=== PATIENT | male | born 1940 | race Caucasian/White ===

== ENCOUNTER 2023-12-23 09:59 | Day surgery (SDC) | payer MEDICARE, OTHER ==
[2023-12-23] VITALS (12 sets, daily range): BP systolic 109–137; BP diastolic 59–76; PULSE 59–88; RESP 10–19; TEMP 98.7; O2SAT 94–98
[~2023-12-23] VITALS: Ht 170.2 cm; Wt 63.3 kg
[~2023-12-23 09:59] MED LIST: ASPI81TA52 PO; ATOR20TA PO
[2023-12-23] MEDS ORDERED: nitroGLYCERIN 0.4mg SUBLingual tab SL PRN ×2 (10:20→13:05)
[2023-12-23] MEDS ORDERED: LORazepam 0.5 MG tablet PO PRN (10:20)
[2023-12-23] MEDS ORDERED: ERGO400C PO (10:25)
[2023-12-23] MEDS ORDERED: UMEC1DIS INH (10:25)
[2023-12-23] MEDS ORDERED: METF-1203 PO (10:25)
[2023-12-23] MEDS ORDERED: ZINC220T3 PO (10:25)
[2023-12-23] MEDS ORDERED: MULT-1085 PO (10:25)
[2023-12-23] MEDS ORDERED: VITC500T PO (10:25)
[2023-12-23 10:53] LABS: BASOPHILS % (AUTO) 0.4 % (0-1); EOSINOPHILS # (AUTO) 0.1 X10'3 (0-0.9); EOSINOPHILS % (AUTO) 0.9 % (0-6); HEMATOCRIT 41.6 % (42.0-52.0); HEMOGLOBIN 13.8 g/dl (14.0-17.9); LYMPHOCYTES # (AUTO) 1.8 X10'3 (1.1-4.8); MEAN CORPUSCULAR HEMOGLOBIN 30.1 PG (27.0-31.0); MEAN CORPUSCULAR HGB CONC 33.1 g/dL (33.0-36.5); MEAN PLATELET VOLUME 7.6 FL (7.4-10.4); MONOCYTES # (AUTO) 1.4 X10'3 (0-0.9); MONOCYTES % (AUTO) 11.3 % (2-12); NEUTROPHILS # (AUTO) 8.9 X10'3 (1.8-7.7); NEUTROPHILS % (AUTO) 72.4 % (42-75); PLATELET COUNT 263 X10'3 (140-440); RED BLOOD COUNT 4.58 X10'6 (4.70-6.10); RED CELL DISTRIBUTION WIDTH 15.9 % (11.5-14.5); WHITE BLOOD COUNT 12.3 X10'3 (4.5-11.0)
[2023-12-23 10:57] LABS: APTT 26 SECONDS (22-32); PROTHROMBIN TIME 10.8 SECONDS (9.0-12.0)
[2023-12-23 11:11] LABS: ALBUMIN 3.5 G/DL (3.4-5.0); ANION GAP 9 (8-16); BLOOD UREA NITROGEN 23 MG/DL (7-18); BUN/CREATININE RATIO 21.7 (10.0-20.0); CALCIUM 8.7 MG/DL (8.5-10.1); CHLORIDE 104 MMOL/L (99-107); CREATININE 1.06 MG/DL (0.60-1.10); GLUCOSE 118 MG/DL (70-104); HEMOGLOBIN A1C 6.1 % (4.5-6.2); POTASSIUM 4.1 MMOL/L (3.5-5.1); PRO BRAIN NATRIURETIC PEPTIDE 121 PG/ML (0-450); SODIUM 140 MMOL/L (135-145); eCRCL 49 ML/MIN; eGFR 67 ML/MIN
[2023-12-23] MEDS ORDERED: LIDOcaine 1% 30ml preserv. free vial ONE (11:33)
[2023-12-23] MEDS ORDERED: iohexol 350MG/ML 100ml bottle IV ONE (11:33)
[2023-12-23] MEDS ORDERED: iohexol 350 MG/ML 50ML vial IV ONE (11:33)
[2023-12-23] MEDS ORDERED: fentaNYL/PF 50MCG/1 ML 2ML syringe ONE (11:33)
[2023-12-23] MEDS ORDERED: midazolam 1 mg/ML 2ml injection ONE (11:33)
[2023-12-23] MEDS: normal saline 1,000 ML IV SCH (11:43)
[2023-12-23] MEDS: diphenhydrAMINE 25mg capsule PO PRN (11:43)
[2023-12-23] MEDS ORDERED: HYDROcodone/acetaminophen 5mg/325mg tablet PO PRN (13:05)
[2023-12-23] MEDS ORDERED: OXAZEpam 15mg capsule PO PRN (13:05)
[2023-12-23] MEDS ORDERED: HYDROcodone/acetaminophen 10/325mg tab PO PRN (13:05)
[2023-12-23] MEDS ORDERED: ondansetron/PF 4mg/2ml inj IV PRN (13:05)
[2023-12-23] MEDS ORDERED: proCHLORperazine 10 MG/2 ml inj IV PRN (13:05)
== END 2023-12-23 18:55 | disposition home or self-care (01) ==
LOC: SSTAY O 09:59
PROVIDERS: ATTEND Internal Medicine Cardiovascular Disease
DX: I25.119 Atherosclerotic heart disease of native coronary artery with unspecified angina pectoris (principal); I45.2 Bifascicular block; E11.9 Type 2 diabetes mellitus without complications; J44.9 Chronic obstructive pulmonary disease, unspecified
CPT/HCPCS: 36415; 71046; 80048; 83036; 83880; 84484; 85025; 85610; 85730; 93005; 93458; 99152; A6258; C1760; J1644; J2001; J2250; J3010; J7030; Q0163; Q9967; Z7610; C1769; J3490

== ENCOUNTER 2024-01-06 05:57 | Inpatient (IN) | payer MEDICARE, OTHER ==
[2024-01-04 16:42] LABS: BASOPHILS # (AUTO) 0.1 X10'3 (0-0.2); BASOPHILS % (AUTO) 0.4 % (0-1); EOSINOPHILS # (AUTO) 0.2 X10'3 (0-0.9); EOSINOPHILS % (AUTO) 1.9 % (0-6); LYMPHOCYTES % (AUTO) 15.5 % (21-51); MEAN CORPUSCULAR HGB CONC 33.5 g/dL (33.0-36.5); MEAN CORPUSCULAR VOLUME 92.4 FL (78-98); MEAN PLATELET VOLUME 7.3 FL (7.4-10.4); MONOCYTES # (AUTO) 1.2 X10'3 (0-0.9); MONOCYTES % (AUTO) 9.8 % (2-12); NEUTROPHILS # (AUTO) 9.2 X10'3 (1.8-7.7); NEUTROPHILS % (AUTO) 72.4 % (42-75); PRE OP HEMATOCRIT 44.4 % (42.0-52.0); PRE OP HEMOGLOBIN 14.9 g/dL (14.0-17.9); PRE OP PLATELET COUNT 314 X10'3 (140-440); PRE OP WHITE BLOOD COUNT 12.6 10'3 (4.8-10.8); RED BLOOD COUNT 4.81 X10'6 (4.70-6.10); RED CELL DISTRIBUTION WIDTH 16.1 % (11.5-14.5)
[2024-01-04 16:50] LABS: BILIRUBIN,URINE NEGATIVE (Neg); CLARITY,URINE CLEAR (Clear); COLOR,URINE YELLOW (Yellow); GLUCOSE, URINE NEGATIVE (Neg); KETONES,URINE NEGATIVE (Neg); LEUKOCYTE ESTERASE ,URINE NEGATIVE (Neg); NITRITES, URINE NEGATIVE (Neg); OCCULT BLOOD,URINE NEGATIVE (Neg); PH,URINE 5.5 (4.8-8.0); PROTEIN,URINE NEGATIVE (Neg); UROBILINOGEN,URINE 0.2 E.U/dL (0.2-1.0)
[2024-01-04 16:56] LABS: UA COLLECTION TYPE CLN CATCH MIDSTREAM
[2024-01-04 16:58] LABS: ALBUMIN 3.8 G/DL (3.4-5.0); ALBUMIN/GLOBULIN RATIO 1.1 (1.1-1.5); ALKALINE PHOSPHATASE 80 IU/L (46-116); BLOOD UREA NITROGEN 23 MG/DL (7-18); CALCIUM 9.1 MG/DL (8.5-10.1); CHLORIDE 103 MMOL/L (99-107); CREATININE 1.15 MG/DL (0.60-1.10); PRE OP ALT 21 U/L (30-65); PRE OP ANION GAP 8 (8-16); PRE OP AST 16 U/L (10-37); PRE OP BILIRUB, TOTAL 0.4 MG/DL (0.0-1.0); PRE OP GLUCOSE 100 MG/DL (70-104); PRE OP POTASSIUM 4.3 MMOL/L (3.4-5.1); PRE OP SODIUM 139 MMOL/L (135-145); TOTAL CARBON DIOXIDE 27.9 MMOL/L (24-32); TOTAL PROTEIN 7.3 G/DL (6.4-8.2); eGFR 61 ML/MIN
[2024-01-04 18:11] LABS: PRE OP PROTIME 10.6 SECONDS (9.0-12.0)
[~2024-01-06] VITALS: Ht 172.7 cm; Wt 82.1 kg
[2024-01-06] VITALS (28 sets, daily range): BP systolic 90–157; BP diastolic 50–78; PULSE 74–97; RESP 12–20; TEMP 97.8; O2SAT 94–100
[2024-01-06] MEDS: cefazolin 2gm/D5W 100mL 100 ML IV ONE (05:30)
[~2024-01-06 05:57] MED LIST changes: -ATOR20TA PO; +CHOL500050 PO; +METF-1203 PO; +MULT-1085 PO; +UMEC1DIS INH; +VITC500T PO; +ZINC220T3 PO
[2024-01-06] MEDS: INDOCYANINE GREEN 25 MG/10 ML VIAL IV ONE (06:44)
[2024-01-06] MEDS ORDERED: LIDOcaine 1% (10mg/ml) 2ml vial ONE (07:06)
[2024-01-06] MEDS ORDERED: fentaNYL /PF 50mcg/ml 5ml ampule ONE (07:18)
[2024-01-06] MEDS ORDERED: midazolam 1 mg/ML 2ml injection ONE (07:18)
[2024-01-06] MEDS ORDERED: proCHLORperazine 10 MG/2 ml inj IV PRN (07:25)
[2024-01-06] MEDS ORDERED: labetalol 20mg/4ml (5mg/ml) syringe IV PRN (07:25)
[2024-01-06] MEDS ORDERED: ondansetron/PF 4mg/2ml inj IV PRN (07:25)
[2024-01-06] MEDS ORDERED: hydrALAZINE 20mg/ml inj. IV PRN (07:25)
[2024-01-06] MEDS ORDERED: meperidine/PF 25mg/ml syringe IV PRN ×3 (07:25)
[2024-01-06] MEDS ORDERED: morphine 4 MG/ML inj SYRINge IV PRN ×2 (07:25→12:00)
[2024-01-06] MEDS: ringers solution, lacted 1,000 ML IV SCH ×2 (07:56→12:30)
[2024-01-06] MEDS: famotidine 20mg tablet PO ONE (07:57)
[2024-01-06] MEDS ORDERED: sevoflurane 250ml liquid IH ONE (08:08)
[2024-01-06] MEDS ORDERED: HYDROcodone/acetaminophen 10/325mg tab PO ONE (08:45)
[2024-01-06] MEDS ORDERED: ondansetron/PF 4mg/2ml inj ONE (09:10)
[2024-01-06] MEDS ORDERED: ePHEDrine 50MG/ML INJ. ONE (09:10)
[2024-01-06] MEDS ORDERED: LIDOcaine 2% (20mg/ml) 5ml vial ONE (09:10)
[2024-01-06] MEDS ORDERED: rocuronium 10mg/ml inj IV ONE ×2 (09:10)
[2024-01-06] MEDS ORDERED: propofol inj 20 ML IV ONE (09:10)
[2024-01-06] MEDS ORDERED: 0.9 % SODIUM CHLORIDE 10 ML VIAL ONE (09:10)
[2024-01-06] MEDS ORDERED: dexamethasone sod phosphate 4mg/ml inj. ONE (09:10)
[2024-01-06] MEDS ORDERED: albumin (Human) 5% 250ml 250 ML IV ONE (09:23)
[2024-01-06] MEDS: BUPIVAcaine 2.5mg/ml inj 50ml vial (contains preservative) ONE ×2 (10:31→12:23)
[2024-01-06] MEDS ORDERED: phenylephrine 10mg/ml inj. -priapism dosing ONE (10:48)
[2024-01-06] MEDS ORDERED: glycopyrrolate 0.2mg/ml inj ONE (11:53)
[2024-01-06] MEDS ORDERED: neostigmine methylsulfate 1 MG/ML 10ml vial ONE (11:53)
[2024-01-06] MEDS ORDERED: sugammadex 200mg/2ml injection IV ONE (11:59)
[2024-01-06] MEDS ORDERED: metoclopramide 5 mg/ml inj IV PRN (12:00)
[2024-01-06] MEDS ORDERED: albuterol 2.5 MG/3 ML nebule NEB PRN (12:00)
[2024-01-06] MEDS: BUPIVACAINE liposomal/PF 13.3 MG/ML vial IM ONE ×2 (12:22)
[2024-01-06 12:40] LABS: ABG BASE EXCESS -0.6 mmol/L (-2.0-3.0); ABG OXYGEN SATURATION 99.5 % (94.0-98.0); ABG PCO2 (T) 44.5 mmHg (35.0-48.0); ABG PH (T) 7.367 (7.350-7.450); ABG PO2 (T) 262.2 mmHg (83.0-108.0); FCOHb 0.8 % (0.5-1.5); FHHb 0.5 % (0.0-5.0); FLOW 10 L/min; FMetHb 0.3 % (0.0-1.5); FO2Hb 98.4 % (94.0-98.0); MODE MASK - SIMPLE; TOTAL HEMOGLOBIN 13.2 G/dl (13.5-17.5)
[2024-01-06] MEDS: acetaminophen 1,000mg/100ml IV 100 ML IV ONE (13:35)
[2024-01-06] MEDS: morphine 2 MG/ML inj. syringe IV PRN ×2 (13:46→16:44)
[2024-01-06] MEDS: potassium cl 20mEq in 1/2 NS 1,000 ML IV SCH (15:53)
[2024-01-06] MEDS: ceFAZolin inj. 1,000 MG in dextrose 5%-water 50ml 50 ML IV SCH (15:54)
[2024-01-06] MEDS: albuterol 2.5 MG/3 ML nebule NEB SCH (16:14)
[2024-01-06] MEDS: gabapentin 300mg capsule PO SCH (20:36)
[2024-01-06] MEDS ORDERED: DEXTROSE 15 GM of carb/4 tabs (each vial/BOTTLE has 4 tablets) PO PRN ×2 (21:20)
[2024-01-06] MEDS ORDERED: dextrose 50%-water 50ml dispensing syringe IV PRN ×2 (21:20)
[2024-01-06] MEDS: HYDROmorphone inj. 0.5 MG/0.5 ML DISP.SYRIN IV PRN (21:51)
[2024-01-07] VITALS (52 sets, daily range): BP systolic 76–132; BP diastolic 43–71; PULSE 78–108; RESP 9–24; O2SAT 90–100
[2024-01-07] MEDS: HYDROcodone/acetaminophen 10/325mg tab PO PRN (00:30)
[2024-01-07] MEDS: ondansetron/PF 4mg/2ml inj IV PRN (05:17)
[2024-01-07 06:12] LABS: BASOPHILS % (AUTO) 0.1 % (0-1); EOSINOPHILS % (AUTO) 0.1 % (0-6); HEMATOCRIT 33.1 % (42.0-52.0); HEMOGLOBIN 10.9 g/dl (14.0-17.9); LYMPHOCYTES # (AUTO) 1.3 X10'3 (1.1-4.8); LYMPHOCYTES % (AUTO) 6.9 % (21-51); MEAN CORPUSCULAR HEMOGLOBIN 30.3 PG (27.0-31.0); MEAN CORPUSCULAR HGB CONC 32.9 g/dL (33.0-36.5); MEAN CORPUSCULAR VOLUME 92.1 FL (78-98); MEAN PLATELET VOLUME 7.9 FL (7.4-10.4); MONOCYTES # (AUTO) 1.9 X10'3 (0-0.9); MONOCYTES % (AUTO) 10.1 % (2-12); NEUTROPHILS # (AUTO) 15.7 X10'3 (1.8-7.7); NEUTROPHILS % (AUTO) 82.8 % (42-75); PLATELET COUNT 231 X10'3 (140-440); RED BLOOD COUNT 3.59 X10'6 (4.70-6.10); RED CELL DISTRIBUTION WIDTH 15.9 % (11.5-14.5); WHITE BLOOD COUNT 18.9 X10'3 (4.5-11.0)
[2024-01-07 06:38] LABS: ALANINE AMINOTRANSFERASE 21 U/L (12-78); ALBUMIN/GLOBULIN RATIO 1.1 (1.1-1.5); ALKALINE PHOSPHATASE 50 IU/L (46-116); ANION GAP 7 (8-16); ASPARTATE AMINO TRANSFERASE 28 U/L (10-37); BILIRUBIN,TOTAL 0.4 MG/DL (0.1-1.0); BLOOD UREA NITROGEN 19 MG/DL (7-18); BUN/CREATININE RATIO 18.6 (10.0-20.0); CALCIUM 7.7 MG/DL (8.5-10.1); CHLORIDE 101 MMOL/L (99-107); CREATININE 1.02 MG/DL (0.60-1.10); GLUCOSE 132 MG/DL (70-104); POTASSIUM 4.6 MMOL/L (3.5-5.1); SODIUM 133 MMOL/L (135-145); TOTAL CARBON DIOXIDE 25.4 MMOL/L (24-32); TOTAL PROTEIN 5.8 G/DL (6.4-8.2); eCRCL 50 ML/MIN; eGFR 70 ML/MIN
[2024-01-07] MEDS: INSULIN LISPRO 100 UNIT/ML INSULN.PEN MULTI-DOSE SQ SCH (07:00)
[2024-01-07] MEDS ORDERED: ALBUMIN 5% IV ONE (10:05)
[2024-01-07] MEDS ORDERED: NORMAL SALINE IV ONE (10:05)
[2024-01-07] MEDS ORDERED: magnesium sulf-water 4G/100mL 100 ML IV PRN (10:15)
[2024-01-07] MEDS ORDERED: magnesium sulf-water 2g/50mL 50 ML IV PRN (10:15)
[2024-01-07] MEDS ORDERED: potassium Cl 40MEQ/1/2NS 520ml 520 ML IV PRN (10:15)
[2024-01-07] MEDS ORDERED: magnesium Cl slow-release 64mg tablet PO PRN (10:15)
[2024-01-07] MEDS ORDERED: potassium Cl 20 mEq SR tablet PO PRN ×2 (10:15)
[2024-01-07] MEDS: docusate sod 100mg capsule PO SCH (11:28)
[2024-01-07] MEDS: albumin (Human) 5% 250ml 500 ML IV ONE (11:29)
[2024-01-07] MEDS ORDERED: K and/or MAG REPLACEMENT MC SCH (20:00)
[2024-01-08] VITALS (22 sets, daily range): BP systolic 101–135; BP diastolic 56–88; PULSE 80–113; RESP 9–24; TEMP 97.9–98.7; O2SAT 88–100
[2024-01-08 05:59] LABS: BASOPHILS % (AUTO) 0.1 % (0-1); EOSINOPHILS % (AUTO) 0.1 % (0-6); HEMATOCRIT 32.4 % (42.0-52.0); HEMOGLOBIN 10.8 g/dl (14.0-17.9); LYMPHOCYTES % (AUTO) 5.2 % (21-51); MEAN CORPUSCULAR HGB CONC 33.5 g/dL (33.0-36.5); MEAN CORPUSCULAR VOLUME 92.5 FL (78-98); MEAN PLATELET VOLUME 7.8 FL (7.4-10.4); MONOCYTES # (AUTO) 2.1 X10'3 (0-0.9); MONOCYTES % (AUTO) 10.4 % (2-12); NEUTROPHILS # (AUTO) 16.9 X10'3 (1.8-7.7); NEUTROPHILS % (AUTO) 84.2 % (42-75); PLATELET COUNT 247 X10'3 (140-440); RED CELL DISTRIBUTION WIDTH 15.7 % (11.5-14.5)
[2024-01-08 06:09] LABS: ALANINE AMINOTRANSFERASE 27 U/L (12-78); ALBUMIN 3.5 G/DL (3.4-5.0); ALBUMIN/GLOBULIN RATIO 1.2 (1.1-1.5); ALKALINE PHOSPHATASE 53 IU/L (46-116); ANION GAP 6 (8-16); ASPARTATE AMINO TRANSFERASE 69 U/L (10-37); BILIRUBIN,TOTAL 0.6 MG/DL (0.1-1.0); BLOOD UREA NITROGEN 20 MG/DL (7-18); BUN/CREATININE RATIO 8.6 (10.0-20.0); CALCIUM 8.1 MG/DL (8.5-10.1); CHLORIDE 100 MMOL/L (99-107); CREATININE 2.32 MG/DL (0.60-1.10); GLUCOSE 138 MG/DL (70-104); MAGNESIUM 2.1 MG/DL (1.5-2.4); PHOSPHORUS 3.7 MG/DL (2.3-4.5); POTASSIUM 4.7 MMOL/L (3.5-5.1); SODIUM 131 MMOL/L (135-145); TOTAL CARBON DIOXIDE 24.7 MMOL/L (24-32); TOTAL PROTEIN 6.5 G/DL (6.4-8.2); eCRCL 23 ML/MIN; eGFR 27 ML/MIN
[2024-01-08] MEDS: HYDROcodone/acetaminophen 10/325mg tab PO PRN (12:40)
[2024-01-08] MEDS ORDERED: PERFLUTREN PROTEIN-A MICROSPHR (Optison) 0.22 MG/ML 3ML VIAL IV ONE (19:45)
[2024-01-08] MEDS: normal saline 1000ml 1,000 ML IV SCH (20:49)
[2024-01-08] MEDS: cefepime 2g/NS 100ml ADVANTAGE 100 ML IV SCH (20:49)
[2024-01-08] MEDS: heparin, porcine 5000 units/ml vial SQ SCH (21:03)
[2024-01-08] MEDS: metoprolol tartrate 1mg/ml inj IV SCH (21:08)
[2024-01-09] VITALS (31 sets, daily range): BP systolic 101–152; BP diastolic 47–94; PULSE 54–165; RESP 14–28; TEMP 97.8–99.5; O2SAT 89–96
[2024-01-09] MEDS: metoprolol tartrate 1mg/ml inj IV SCH (03:55)
[2024-01-09 07:20] LABS: ABG BASE EXCESS 0.9 mmol/L (-2.0-3.0); ABG HCO3 25.4 mmol/L (21.0-28.0); ABG OXYGEN SATURATION 95.7 % (94.0-98.0); ABG PCO2 (T) 40.2 mmHg (35.0-48.0); ABG PH (T) 7.419 (7.350-7.450); ABG PO2 (T) 78.9 mmHg (83.0-108.0); ALLEN'S TEST POSITIVE; FHHb 4.2 % (0.0-5.0); FMetHb 0.3 % (0.0-1.5); FO2Hb 92.5 % (94.0-98.0); MODE ROOM AIR
[2024-01-09 07:47] LABS: BASOPHILS % (AUTO) 0.1 % (0-1); EOSINOPHILS % (AUTO) 0 % (0-6); HEMATOCRIT 32.2 % (42.0-52.0); HEMOGLOBIN 10.6 g/dl (14.0-17.9); LYMPHOCYTES % (AUTO) 5.9 % (21-51); MEAN CORPUSCULAR HEMOGLOBIN 30.3 PG (27.0-31.0); MEAN CORPUSCULAR HGB CONC 32.8 g/dL (33.0-36.5); MEAN CORPUSCULAR VOLUME 92.2 FL (78-98); MEAN PLATELET VOLUME 8.2 FL (7.4-10.4); MONOCYTES # (AUTO) 1.3 X10'3 (0-0.9); MONOCYTES % (AUTO) 7.9 % (2-12); NEUTROPHILS # (AUTO) 13.9 X10'3 (1.8-7.7); NEUTROPHILS % (AUTO) 86.1 % (42-75); PLATELET COUNT 270 X10'3 (140-440); RED BLOOD COUNT 3.49 X10'6 (4.70-6.10); RED CELL DISTRIBUTION WIDTH 15.4 % (11.5-14.5); WHITE BLOOD COUNT 16.1 X10'3 (4.5-11.0)
[2024-01-09] MEDS: furosemide 20 MG/2 ML vial IV ONE (07:47)
[2024-01-09 07:57] LABS: ABG BASE EXCESS -5.8 mmol/L (-2.0-3.0); ABG HCO3 19.5 mmol/L (21.0-28.0); ABG OXYGEN SATURATION 91.6 % (94.0-98.0); ABG PCO2 (T) 38.5 mmHg (35.0-48.0); ABG PH (T) 7.325 (7.350-7.450); ABG PO2 (T) 65.8 mmHg (83.0-108.0); ALLEN'S TEST POSITIVE; FCOHb 0.6 % (0.5-1.5); FHHb 8.3 % (0.0-5.0); FLOW 5 L/min; FMetHb 0.3 % (0.0-1.5); FO2Hb 90.8 % (94.0-98.0); MODE NASAL CANNULA; PATIENT TEMPERATURE 37.5; TOTAL HEMOGLOBIN 11.5 G/dl (13.5-17.5)
[2024-01-09] MEDS: PERFLUTREN PROTEIN-A MICROSPHR (Optison) 0.22 MG/ML 3ML VIAL IV ONE (08:00)
[2024-01-09] MEDS ORDERED: metoprolol tartrate 1mg/ml inj IV SCH (08:00)
[2024-01-09 08:24] LABS: ALANINE AMINOTRANSFERASE 26 U/L (12-78); ALBUMIN 2.7 G/DL (3.4-5.0); ALBUMIN/GLOBULIN RATIO 0.8 (1.1-1.5); ALKALINE PHOSPHATASE 47 IU/L (46-116); ANION GAP 10 (8-16); ASPARTATE AMINO TRANSFERASE 46 U/L (10-37); BILIRUBIN,TOTAL 0.7 MG/DL (0.1-1.0); BLOOD UREA NITROGEN 26 MG/DL (7-18); BUN/CREATININE RATIO 11.9 (10.0-20.0); CHLORIDE 96 MMOL/L (99-107); CREATININE 2.18 MG/DL (0.60-1.10); GLUCOSE 149 MG/DL (70-104); PHOSPHORUS 3.8 MG/DL (2.3-4.5); POTASSIUM 5.1 MMOL/L (3.5-5.1); SODIUM 125 MMOL/L (135-145); TOTAL CARBON DIOXIDE 18.7 MMOL/L (24-32); TOTAL PROTEIN 6.2 G/DL (6.4-8.2); eCRCL 24 ML/MIN; eGFR 29 ML/MIN
[2024-01-09] MEDS: amiodarone 150mg/dext, iso-os 100 ML IV ONE (08:38)
[2024-01-09] MEDS: amiodarone/D5 360MG/200ML BAG 200 ML IV SCH (08:59)
[2024-01-09] MEDS ORDERED: magnesium sulf-water 2g/50mL 50 ML IV PRN (11:00)
[2024-01-09] MEDS ORDERED: potassium Cl 20 mEq SR tablet PO PRN ×2 (11:00)
[2024-01-09] MEDS ORDERED: potassium Cl 40MEQ/1/2NS 520ml 520 ML IV PRN (11:00)
[2024-01-09] MEDS ORDERED: magnesium Cl slow-release 64mg tablet PO PRN (11:00)
[2024-01-09] MEDS: magnesium sulf-water 4G/100mL 100 ML IV PRN (12:38)
[2024-01-09] MEDS: acetylcysteine 200 MG/ml 4ml vial INH SCH ×2 (16:16→19:58)
[2024-01-09] MEDS: K and/or MAG REPLACEMENT MC SCH (20:00)
[2024-01-10] VITALS (37 sets, daily range): BP systolic 91–128; BP diastolic 39–67; PULSE 72–119; RESP 16–34; TEMP 97.3–98.2; O2SAT 72–99
[2024-01-10] MEDS: amiodarone 200mg tablet PO SCH (00:09)
[2024-01-10] MEDS: magnesium oxide 400mg tablet PO SCH (01:06)
[2024-01-10] MEDS: amiodarone 150mg/dext, iso-os 100 ML IV ONE (06:45)
[2024-01-10] MEDS: amiodarone/D5 360MG/200ML BAG 200 ML IV SCH ×3 (06:53→19:45)
[2024-01-10 07:48] LABS: BASOPHILS % (AUTO) 0 % (0-1); EOSINOPHILS % (AUTO) 0 % (0-6); HEMATOCRIT 30.7 % (42.0-52.0); HEMOGLOBIN 10.2 g/dl (14.0-17.9); LYMPHOCYTES # (AUTO) 0.5 X10'3 (1.1-4.8); LYMPHOCYTES % (AUTO) 5.1 % (21-51); MEAN CORPUSCULAR HEMOGLOBIN 30.6 PG (27.0-31.0); MEAN CORPUSCULAR HGB CONC 33.4 g/dL (33.0-36.5); MEAN CORPUSCULAR VOLUME 91.6 FL (78-98); MEAN PLATELET VOLUME 7.8 FL (7.4-10.4); MONOCYTES # (AUTO) 1.1 X10'3 (0-0.9); MONOCYTES % (AUTO) 10.7 % (2-12); NEUTROPHILS % (AUTO) 84.2 % (42-75); PLATELET COUNT 297 X10'3 (140-440); RED BLOOD COUNT 3.35 X10'6 (4.70-6.10); RED CELL DISTRIBUTION WIDTH 15.6 % (11.5-14.5); WHITE BLOOD COUNT 10.7 X10'3 (4.5-11.0)
[2024-01-10 08:14] LABS: ALANINE AMINOTRANSFERASE 35 U/L (12-78); ALBUMIN 2.2 G/DL (3.4-5.0); ALBUMIN/GLOBULIN RATIO 0.6 (1.1-1.5); ALKALINE PHOSPHATASE 55 IU/L (46-116); ANION GAP 11 (8-16); ASPARTATE AMINO TRANSFERASE 60 U/L (10-37); BILIRUBIN,TOTAL 0.4 MG/DL (0.1-1.0); BLOOD UREA NITROGEN 50 MG/DL (7-18); CALCIUM 8.2 MG/DL (8.5-10.1); CHLORIDE 92 MMOL/L (99-107); CREATININE 3.57 MG/DL (0.60-1.10); GLUCOSE 205 MG/DL (70-104); MAGNESIUM 3.3 MG/DL (1.5-2.4); PHOSPHORUS 5.6 MG/DL (2.3-4.5); POTASSIUM 4.6 MMOL/L (3.5-5.1); TOTAL CARBON DIOXIDE 16.8 MMOL/L (24-32); eCRCL 15 ML/MIN; eGFR 17 ML/MIN
[2024-01-10 08:25] LABS: SODIUM 120 MMOL/L (135-145)
[2024-01-10] MEDS ORDERED: rocuronium 10mg/ml inj IV ONE (09:00)
[2024-01-10 12:13] LABS: ABG BASE EXCESS -11.3 mmol/L (-2.0-3.0); ABG OXYGEN SATURATION 65.6 % (94.0-98.0); ABG PCO2 (T) 65.1 mmHg (35.0-48.0); ABG PH (T) 7.082 (7.350-7.450); ALLEN'S TEST POSITIVE; FCOHb 0.1 % (0.5-1.5); FHHb 34.3 % (0.0-5.0); FLOW 55 L/min; FMetHb 0.3 % (0.0-1.5); FO2Hb 65.3 % (94.0-98.0); MODE HIGH FLOW; TOTAL HEMOGLOBIN 11.2 G/dl (13.5-17.5)
[2024-01-10] MEDS ORDERED: propofol 1000mg/100ml bottle 100 ML IV PRN (12:45)
[2024-01-10 13:40] LABS: TRIGLYCERIDES 80 MG/DL (20-135)
[2024-01-10] MEDS: FENTANYL-0.9 % NACL/PF 100 ML IV SCH (14:17)
[2024-01-10] MEDS: INSULIN LISPRO 100 UNIT/ML INSULN.PEN MULTI-DOSE SQ SCH (14:50)
[2024-01-10 14:52] LABS: ABG BASE EXCESS -14.8 mmol/L (-2.0-3.0); ABG HCO3 16.4 mmol/L (21.0-28.0); ABG OXYGEN SATURATION 98.5 % (94.0-98.0); ABG PCO2 (T) 63.6 mmHg (35.0-48.0); ABG PH (T) 7.021 (7.350-7.450); ABG PO2 (T) 160.9 mmHg (83.0-108.0); ALLEN'S TEST POSITIVE; FCOHb 0.3 % (0.5-1.5); FHHb 1.5 % (0.0-5.0); FMetHb 0.3 % (0.0-1.5); FO2Hb 97.9 % (94.0-98.0); MODE VENT PRVC; PATIENT TEMPERATURE 35.8; PEEP 10 cm H2O; RESPIRATORY RATE 16 b/min; TIDAL VOLUME 350 mL; TOTAL HEMOGLOBIN 10.3 G/dl (13.5-17.5)
[2024-01-10] MEDS: dextrose 5%-normal saline 1,000 ML IV SCH (15:00)
[2024-01-10] MEDS: NORepinephrine 8mg/ 250ml NS 250 ML IV SCH (15:25)
[2024-01-10] MEDS: albumin (Human) 5% 250ml 250 ML IV ONE ×2 (15:30→19:35)
[2024-01-10] MEDS: sodium bicarbonate (8.4%) 1 mEq/ml syringe IV ONE (15:30)
[2024-01-10] MEDS: acetylcysteine 200 MG/ml 4ml vial INH SCH (16:06)
[2024-01-10 16:25] LABS: ABG BASE EXCESS -10.3 mmol/L (-2.0-3.0); ABG HCO3 19.4 mmol/L (21.0-28.0); ABG OXYGEN SATURATION 88.4 % (94.0-98.0); ABG PCO2 (T) 59.8 mmHg (35.0-48.0); ABG PH (T) 7.121 (7.350-7.450); FCOHb 0.3 % (0.5-1.5); FHHb 11.5 % (0.0-5.0); FMetHb 0.3 % (0.0-1.5); FO2Hb 87.9 % (94.0-98.0); MODE VENT PRVC; PATIENT TEMPERATURE 35.7; PEEP 8 cm H2O; RESPIRATORY RATE 22 b/min; TIDAL VOLUME 350 mL
[2024-01-10] MEDS: midazolam 100mg in NS 100ml 100 ML IV SCH (16:27)
[2024-01-10] MEDS: sodium bicarbonate 1meq/ml inj 150 ML in sodium chloride 0.45% 1,000 ML IV SCH (16:29)
[2024-01-10 19:26] LABS: ABG BASE EXCESS -9.2 mmol/L (-2.0-3.0); ABG HCO3 18.4 mmol/L (21.0-28.0); ABG OXYGEN SATURATION 95.3 % (94.0-98.0); ABG PCO2 (T) 47.4 mmHg (35.0-48.0); ABG PH (T) 7.206 (7.350-7.450); ABG PO2 (T) 86.3 mmHg (83.0-108.0); FHHb 4.7 % (0.0-5.0); FMetHb 0.3 % (0.0-1.5); MODE VENT - PRVC; PATIENT TEMPERATURE 36.8; PEEP 8 cm H2O; RESPIRATORY RATE 24 b/min; TIDAL VOLUME 400 mL; TOTAL HEMOGLOBIN 9.6 G/dl (13.5-17.5)
[2024-01-10] MEDS: clindamycin 600mg/D5W 50ml 50 ML IV SCH (20:37)
[2024-01-11] VITALS (48 sets, daily range): BP systolic 97–132; BP diastolic 37–48; PULSE 64–92; RESP 21–28; O2SAT 90–98
[2024-01-11 01:33] LABS: BASOPHILS % (AUTO) 0.1 % (0-1); EOSINOPHILS % (AUTO) 0.1 % (0-6); HEMATOCRIT 25.3 % (42.0-52.0); HEMOGLOBIN 8.4 g/dl (14.0-17.9); LYMPHOCYTES # (AUTO) 0.4 X10'3 (1.1-4.8); LYMPHOCYTES % (AUTO) 4.4 % (21-51); MEAN CORPUSCULAR HEMOGLOBIN 30.3 PG (27.0-31.0); MEAN CORPUSCULAR HGB CONC 33.4 g/dL (33.0-36.5); MEAN CORPUSCULAR VOLUME 90.8 FL (78-98); MEAN PLATELET VOLUME 7.7 FL (7.4-10.4); MONOCYTES # (AUTO) 0.4 X10'3 (0-0.9); MONOCYTES % (AUTO) 4.5 % (2-12); NEUTROPHILS # (AUTO) 8.1 X10'3 (1.8-7.7); NEUTROPHILS % (AUTO) 90.9 % (42-75); PLATELET COUNT 261 X10'3 (140-440); RED BLOOD COUNT 2.78 X10'6 (4.70-6.10); RED CELL DISTRIBUTION WIDTH 15.2 % (11.5-14.5); WHITE BLOOD COUNT 8.9 X10'3 (4.5-11.0)
[2024-01-11 01:49] LABS: ALANINE AMINOTRANSFERASE 37 U/L (12-78); ALBUMIN/GLOBULIN RATIO 0.7 (1.1-1.5); ALKALINE PHOSPHATASE 40 IU/L (46-116); ANION GAP 11 (8-16); ASPARTATE AMINO TRANSFERASE 51 U/L (10-37); BILIRUBIN,TOTAL 0.4 MG/DL (0.1-1.0); BLOOD UREA NITROGEN 54 MG/DL (7-18); BUN/CREATININE RATIO 16.6 (10.0-20.0); CALCIUM 7.2 MG/DL (8.5-10.1); CHLORIDE 97 MMOL/L (99-107); CREATININE 3.25 MG/DL (0.60-1.10); GLUCOSE 184 MG/DL (70-104); MAGNESIUM 2.7 MG/DL (1.5-2.4); PHOSPHORUS 5.2 MG/DL (2.3-4.5); POTASSIUM 4.1 MMOL/L (3.5-5.1); SODIUM 128 MMOL/L (135-145); TOTAL CARBON DIOXIDE 20.2 MMOL/L (24-32); TRIGLYCERIDES 54 MG/DL (20-135); eCRCL 16 ML/MIN; eGFR 18 ML/MIN
[2024-01-11 03:14] LABS: ABG HCO3 19.5 mmol/L (21.0-28.0); ABG OXYGEN SATURATION 92.4 % (94.0-98.0); ABG PCO2 (T) 49.9 mmHg (35.0-48.0); ABG PH (T) 7.211 (7.350-7.450); ABG PO2 (T) 73.3 mmHg (83.0-108.0); FCOHb 0.3 % (0.5-1.5); FHHb 7.6 % (0.0-5.0); FMetHb 0.3 % (0.0-1.5); FO2Hb 91.8 % (94.0-98.0); MODE VENT - PRVC; PATIENT TEMPERATURE 37.2; PEEP 8 cm H2O; RESPIRATORY RATE 24 b/min; TIDAL VOLUME 400 mL; TOTAL HEMOGLOBIN 9.5 G/dl (13.5-17.5)
[2024-01-11 03:15] LABS: PLATELET ESTIMATE NORMAL; TOTAL CELLS COUNTED 100
[2024-01-11 03:16] LABS: ANISOCYTOSIS FEW; BURR CELLS 2+
[2024-01-11 03:17] LABS: ELLIPTOCYTES FEW; LARGE PLATELETS FEW; SCHISTOCYTES FEW
[2024-01-11] MEDS: cefepime 2g/NS 100ml ADVANTAGE 100 ML IV SCH (07:58)
[2024-01-11 10:58] LABS: OXYGEN SATURATION (MIXED VEN) 73.9 % (60-80); PO2 MIXED VENOUS (TEMP COR) 47.9 mmHg (35-46)
[2024-01-11] MEDS: albumin (Human) 5% 250ml 250 ML IV ONE ×3 (10:58→16:46)
[2024-01-11] MEDS ORDERED: POTASSIUM CHLORIDE 20 MEQ/15 ML oral solution OGT PRN ×2 (11:22)
[2024-01-11] MEDS ORDERED: DEXTROSE 15 GM of carb/4 tabs (each vial/BOTTLE has 4 tablets) OGT PRN ×2 (11:35)
[2024-01-11] MEDS: amiodarone/D5 360MG/200ML BAG 200 ML IV SCH (11:47)
[2024-01-11] MEDS: COMMUNICATION ORDER 1 EA MISC MC ONE (11:57)
[2024-01-11] MEDS: VANCOmycin 1250MG/NS 250ml Bag 250 ML IV ONE (12:31)
[2024-01-11] MEDS: NORepinephrine 32 MG in normal saline 250ml IV soln 218 ML IV SCH (13:37)
[2024-01-11] MEDS ORDERED: vasopressin inj. 40 UNIT in dextrose 5%-water 50ml 38 ML IV SCH (14:55)
[2024-01-11] MEDS: vasopressin inj. 40 UNIT in normal saline 50ml IV soln 38 ML IV SCH (15:23)
[2024-01-11] MEDS: magnesium oxide 400mg tablet OGT SCH (16:00)
[2024-01-11 17:09] LABS: ABG BASE EXCESS -10.5 mmol/L (-2.0-3.0); ABG HCO3 19.1 mmol/L (21.0-28.0); ABG PCO2 (T) 66.7 mmHg (35.0-48.0); ABG PH (T) 7.081 (7.350-7.450); ABG PO2 (T) 104.3 mmHg (83.0-108.0); FCOHb 0.2 % (0.5-1.5); FMetHb 0.3 % (0.0-1.5); FO2Hb 95.5 % (94.0-98.0); MODE VENT - AC/PRVC; PEEP 8 cm H2O; RESPIRATORY RATE 24 b/min; TIDAL VOLUME 400 mL; TOTAL HEMOGLOBIN 9.2 G/dl (13.5-17.5)
[2024-01-11] MEDS: VECuronium br 10mg inj. IV STA (17:40)
[2024-01-11 19:00] LABS: ABG BASE EXCESS -10.2 mmol/L (-2.0-3.0); ABG HCO3 18.8 mmol/L (21.0-28.0); ABG OXYGEN SATURATION 94.8 % (94.0-98.0); ABG PCO2 (T) 61.1 mmHg (35.0-48.0); ABG PH (T) 7.112 (7.350-7.450); ABG PO2 (T) 89.3 mmHg (83.0-108.0); FCOHb 0.2 % (0.5-1.5); FHHb 5.2 % (0.0-5.0); FMetHb 0.3 % (0.0-1.5); FO2Hb 94.3 % (94.0-98.0); PATIENT TEMPERATURE 37.9; PEEP 8 cm H2O; RESPIRATORY RATE 24 b/min; TIDAL VOLUME 450 mL; TOTAL HEMOGLOBIN 9.2 G/dl (13.5-17.5)
[2024-01-11 19:02] LABS: OXYGEN SATURATION (MIXED VEN) 70.3 % (60-80); PO2 MIXED VENOUS (TEMP COR) 43.9 mmHg (35-46)
[2024-01-11] MEDS: CISatracurium besylate inj. 100 MG in normal saline 100ml IV soln 90 ML IV PRN (20:04)
[2024-01-11] MEDS: docusate sodium 100mg/10ml UD cup OGT SCH (20:44)
[2024-01-11] MEDS: mineral oil/petrolatum ophthal oint EACHEYE SCH (20:47)
[2024-01-11] MEDS: hydrocortisone sod succ/PF 100mg/2ml inj. IV SCH (22:22)
[2024-01-11] MEDS: micafungin inj 100 MG in normal saline 100ml IV soln 100 ML IV SCH (22:48)
[2024-01-11 22:52] LABS: ANION GAP 13 (8-16); BLOOD UREA NITROGEN 60 MG/DL (7-18); BUN/CREATININE RATIO 15.3 (10.0-20.0); CHLORIDE 97 MMOL/L (99-107); CREATININE 3.93 MG/DL (0.60-1.10); GLUCOSE 191 MG/DL (70-104); MAGNESIUM 2.7 MG/DL (1.5-2.4); PHOSPHORUS 7.2 MG/DL (2.3-4.5); POTASSIUM 5.2 MMOL/L (3.5-5.1); SODIUM 129 MMOL/L (135-145); TOTAL CARBON DIOXIDE 19.4 MMOL/L (24-32); eCRCL 13 ML/MIN; eGFR 15 ML/MIN
[2024-01-11 22:57] LABS: ABG BASE EXCESS -10.4 mmol/L (-2.0-3.0); ABG HCO3 17.6 mmol/L (21.0-28.0); ABG OXYGEN SATURATION 98.3 % (94.0-98.0); ABG PCO2 (T) 50.7 mmHg (35.0-48.0); ABG PH (T) 7.161 (7.350-7.450); ABG PO2 (T) 133.1 mmHg (83.0-108.0); FCOHb 0.2 % (0.5-1.5); FHHb 1.7 % (0.0-5.0); FMetHb 0.3 % (0.0-1.5); FO2Hb 97.8 % (94.0-98.0); PATIENT TEMPERATURE 37.8; PEEP 8 cm H2O; RESPIRATORY RATE 28 b/min; TIDAL VOLUME 450 mL
[2024-01-11] MEDS ORDERED: DOBUTamine-DoBUTrex 500mg/D5W 250 ML IV PRN (23:15)
[2024-01-11] MEDS: DOBUTamine-DoBUTrex 500mg/D5W 250 ML IV PRN (23:42)
[2024-01-12] VITALS (52 sets, daily range): BP systolic 11–133; BP diastolic 36–63; PULSE 73–120; RESP 26–76; TEMP 99.6; O2SAT 91–99
[2024-01-12 02:52] LABS: BASOPHILS % (AUTO) 0.1 % (0-1); HEMATOCRIT 23.4 % (42.0-52.0); HEMOGLOBIN 7.7 g/dl (14.0-17.9); LYMPHOCYTES # (AUTO) 0.4 X10'3 (1.1-4.8); MONOCYTES # (AUTO) 1.3 X10'3 (0-0.9)
[2024-01-12 02:54] LABS: EOSINOPHILS % (AUTO) 0 % (0-6); MEAN CORPUSCULAR HEMOGLOBIN 29.7 PG (27.0-31.0); MEAN CORPUSCULAR HGB CONC 32.9 g/dL (33.0-36.5); MEAN CORPUSCULAR VOLUME 90.4 FL (78-98); MEAN PLATELET VOLUME 7.8 FL (7.4-10.4); MONOCYTES % (AUTO) 6.9 % (2-12); NEUTROPHILS # (AUTO) 16.7 X10'3 (1.8-7.7); PLATELET COUNT 228 X10'3 (140-440); RED BLOOD COUNT 2.59 X10'6 (4.70-6.10); RED CELL DISTRIBUTION WIDTH 15.7 % (11.5-14.5); WHITE BLOOD COUNT 18.3 X10'3 (4.5-11.0)
[2024-01-12 03:17] LABS: CHLORIDE 96 MMOL/L (99-107); POTASSIUM 4.9 MMOL/L (3.5-5.1); SODIUM 128 MMOL/L (135-145)
[2024-01-12 03:43] LABS: ALANINE AMINOTRANSFERASE 418 U/L (12-78); ALBUMIN 1.8 G/DL (3.4-5.0); ALBUMIN/GLOBULIN RATIO 0.6 (1.1-1.5); ALKALINE PHOSPHATASE 59 IU/L (46-116); ANION GAP 14 (8-16); ASPARTATE AMINO TRANSFERASE 615 U/L (10-37); BILIRUBIN,TOTAL 0.7 MG/DL (0.1-1.0); BLOOD UREA NITROGEN 64 MG/DL (7-18); BUN/CREATININE RATIO 15.5 (10.0-20.0); CREATININE 4.13 MG/DL (0.60-1.10); GLUCOSE 211 MG/DL (70-104); MAGNESIUM 2.7 MG/DL (1.5-2.4); PHOSPHORUS 6.7 MG/DL (2.3-4.5); TOTAL CARBON DIOXIDE 18.3 MMOL/L (24-32); TOTAL PROTEIN 4.8 G/DL (6.4-8.2); VANCOMYCIN,RANDOM 15.7 ug/mL (20.0-30.0); eCRCL 13 ML/MIN; eGFR 14 ML/MIN
[2024-01-12 04:27] LABS: NUCLEATED RED BLOOD CELLS 1 /100WBC (0-0); PLATELET ESTIMATE NORMAL; TOTAL CELLS COUNTED 100
[2024-01-12 04:28] LABS: ANISOCYTOSIS 1+; BURR CELLS 2+; ELLIPTOCYTES FEW; SCHISTOCYTES FEW
[2024-01-12 04:29] LABS: HYPOCHROMASIA 1+
[2024-01-12 05:00] LABS: ABG BASE EXCESS -9.6 mmol/L (-2.0-3.0); ABG HCO3 17.6 mmol/L (21.0-28.0); ABG OXYGEN SATURATION 96.4 % (94.0-98.0); ABG PCO2 (T) 45.6 mmHg (35.0-48.0); ABG PH (T) 7.207 (7.350-7.450); ABG PO2 (T) 96.6 mmHg (83.0-108.0); FCOHb 0.2 % (0.5-1.5); FHHb 3.6 % (0.0-5.0); FMetHb 0.3 % (0.0-1.5); FO2Hb 95.9 % (94.0-98.0); MODE VENT-AC PRVC; PATIENT TEMPERATURE 37.6; PEEP 8 cm H2O; RESPIRATORY RATE 28 b/min; TIDAL VOLUME 450 mL; TOTAL HEMOGLOBIN 8.5 G/dl (13.5-17.5)
[2024-01-12] MEDS ORDERED: vancomycin/NS 1 GM ADD-VANTAGE 250 ML X 1 DOSE IV PRN (07:00)
[2024-01-12] MEDS: NORepinephrine 32 MG in normal saline 250ml IV soln 218 ML IV SCH (07:52)
[2024-01-12] MEDS ORDERED: metoclopramide 5 mg/ml inj IV PRN (08:45)
[2024-01-12 09:41] LABS: ABG BASE EXCESS -7.5 mmol/L (-2.0-3.0); ABG HCO3 19.4 mmol/L (21.0-28.0); ABG PCO2 (T) 47.1 mmHg (35.0-48.0); ABG PH (T) 7.235 (7.350-7.450); ABG PO2 (T) 94.9 mmHg (83.0-108.0); FCOHb 0.5 % (0.5-1.5); FMetHb 0.3 % (0.0-1.5); FO2Hb 95.2 % (94.0-98.0); MODE VENT - PRVC; PATIENT TEMPERATURE 37.5; PEEP 8 cm H2O; RESPIRATORY RATE 28 b/min; TIDAL VOLUME 450 mL; TOTAL HEMOGLOBIN 8.5 G/dl (13.5-17.5)
[2024-01-12 09:45] LABS: OXYGEN SATURATION (MIXED VEN) 70.5 % (60-80); PO2 MIXED VENOUS (TEMP COR) 42.8 mmHg (35-46)
[2024-01-12] MEDS: metoclopramide 5 mg/ml inj IV SCH ×2 (09:56→16:29)
[2024-01-12] MEDS: meropenem inj 500 MG in normal saline 100ml IV soln 100 ML IV SCH (10:14)
[2024-01-12] MEDS ORDERED: Duosol 4K/3 Ca (w/calcium) 5,000 ML HE SCH (10:15)
[2024-01-12 13:21] LABS: LYMPHOCYTES # (AUTO) 0.4 X10'3 (1.1-4.8); MEAN CORPUSCULAR VOLUME 89.4 FL (78-98); MONOCYTES # (AUTO) 1.2 X10'3 (0-0.9)
[2024-01-12 13:22] LABS: BASOPHILS % (AUTO) 0.2 % (0-1); EOSINOPHILS % (AUTO) 0.1 % (0-6); HEMOGLOBIN 7.7 g/dl (14.0-17.9); MEAN CORPUSCULAR HEMOGLOBIN 29.9 PG (27.0-31.0); MEAN CORPUSCULAR HGB CONC 33.4 g/dL (33.0-36.5); MEAN PLATELET VOLUME 8.1 FL (7.4-10.4); MONOCYTES % (AUTO) 5.7 % (2-12); NEUTROPHILS # (AUTO) 19.7 X10'3 (1.8-7.7); PLATELET COUNT 246 X10'3 (140-440); RED BLOOD COUNT 2.57 X10'6 (4.70-6.10); RED CELL DISTRIBUTION WIDTH 16.2 % (11.5-14.5); WHITE BLOOD COUNT 21.4 X10'3 (4.5-11.0)
[2024-01-12 13:38] LABS: APTT 47 SECONDS (22-32); INR 1.2 INR; PROTHROMBIN TIME 12.1 SECONDS (9.0-12.0)
[2024-01-12 14:01] LABS: ALBUMIN 1.7 G/DL (3.4-5.0); ANION GAP 15 (8-16); BLOOD UREA NITROGEN 72 MG/DL (7-18); BUN/CREATININE RATIO 16.3 (10.0-20.0); CALCIUM CVVH 6.9 MG/DL (8.5-10.1); CHLORIDE 96 MMOL/L (99-107); CREATININE 4.43 MG/DL (0.60-1.10); GLUCOSE 254 MG/DL (70-104); MAGNESIUM 2.6 MG/DL (1.5-2.4); PHOSPHORUS 6.6 MG/DL (2.3-4.5); POTASSIUM 4.5 MMOL/L (3.5-5.1); SODIUM 131 MMOL/L (135-145); TOTAL CARBON DIOXIDE 19.9 MMOL/L (24-32); eGFR 13 ML/MIN
[2024-01-12] MEDS: Duosol 4K/3 Ca (w/calcium) 5,000 ML HE SCH (16:27)
[2024-01-12] MEDS: digoxin 250mcg/ml 2ml ampule IV ONE (16:27)
[2024-01-12 19:03] LABS: BASOPHILS # (AUTO) 0.1 X10'3 (0-0.2); BASOPHILS % (AUTO) 0.4 % (0-1); HEMOGLOBIN 7.9 g/dl (14.0-17.9); MEAN PLATELET VOLUME 8.1 FL (7.4-10.4); RED BLOOD COUNT 2.66 X10'6 (4.70-6.10)
[2024-01-12 19:05] LABS: EOSINOPHILS % (AUTO) 0 % (0-6); HEMATOCRIT 23.7 % (42.0-52.0); LYMPHOCYTES # (AUTO) 0.3 X10'3 (1.1-4.8); LYMPHOCYTES % (AUTO) 1.3 % (21-51); MEAN CORPUSCULAR HEMOGLOBIN 29.7 PG (27.0-31.0); MEAN CORPUSCULAR HGB CONC 33.3 g/dL (33.0-36.5); MONOCYTES # (AUTO) 1.3 X10'3 (0-0.9); MONOCYTES % (AUTO) 5.5 % (2-12); NEUTROPHILS # (AUTO) 22.5 X10'3 (1.8-7.7); NEUTROPHILS % (AUTO) 92.8 % (42-75); PLATELET COUNT 238 X10'3 (140-440); RED CELL DISTRIBUTION WIDTH 16.2 % (11.5-14.5); WHITE BLOOD COUNT 24.3 X10'3 (4.5-11.0)
[2024-01-12 19:11] LABS: ALBUMIN 1.6 G/DL (3.4-5.0); ANION GAP 11 (8-16); BLOOD UREA NITROGEN 63 MG/DL (7-18); BUN/CREATININE RATIO 15.9 (10.0-20.0); CALCIUM CVVH 6.9 MG/DL (8.5-10.1); CHLORIDE 98 MMOL/L (99-107); CREATININE 3.96 MG/DL (0.60-1.10); GLUCOSE 212 MG/DL (70-104); MAGNESIUM 2.5 MG/DL (1.5-2.4); PHOSPHORUS 5.4 MG/DL (2.3-4.5); POTASSIUM 4.3 MMOL/L (3.5-5.1); SODIUM 133 MMOL/L (135-145); TOTAL CARBON DIOXIDE 23.8 MMOL/L (24-32); eGFR 15 ML/MIN
[2024-01-12 19:23] LABS: APTT 43 SECONDS (22-32); INR 1.2 INR; PROTHROMBIN TIME 12.1 SECONDS (9.0-12.0)
[2024-01-12] MEDS: calcium chloride inj. 1,000 MG in normal saline 100ml IV soln 100 ML IV PRN (20:22)
[2024-01-12 20:54] LABS: LYMPHOCYTES # (AUTO) 0.4 X10'3 (1.1-4.8); MEAN CORPUSCULAR HGB CONC 33.5 g/dL (33.0-36.5)
[2024-01-12 20:56] LABS: BASOPHILS % (AUTO) 0.2 % (0-1); EOSINOPHILS % (AUTO) 0.1 % (0-6); HEMATOCRIT 24.9 % (42.0-52.0); HEMOGLOBIN 8.3 g/dl (14.0-17.9); LYMPHOCYTES % (AUTO) 1.6 % (21-51); MEAN CORPUSCULAR HEMOGLOBIN 29.8 PG (27.0-31.0); MEAN PLATELET VOLUME 8.1 FL (7.4-10.4); MONOCYTES # (AUTO) 1.6 X10'3 (0-0.9); MONOCYTES % (AUTO) 5.8 % (2-12); NEUTROPHILS # (AUTO) 25.2 X10'3 (1.8-7.7); NEUTROPHILS % (AUTO) 92.3 % (42-75); PLATELET COUNT 256 X10'3 (140-440)
[2024-01-12 21:00] LABS: WHITE BLOOD COUNT 27.3 X10'3 (4.5-11.0)
[2024-01-12 21:01] LABS: ALBUMIN 1.7 G/DL (3.4-5.0); ANION GAP 11 (8-16); BLOOD UREA NITROGEN 60 MG/DL (7-18); BUN/CREATININE RATIO 16.9 (10.0-20.0); CALCIUM CVVH 7.3 MG/DL (8.5-10.1); CHLORIDE 97 MMOL/L (99-107); CREATININE 3.54 MG/DL (0.60-1.10); GLUCOSE 196 MG/DL (70-104); MAGNESIUM 2.4 MG/DL (1.5-2.4); POTASSIUM 4.3 MMOL/L (3.5-5.1); SODIUM 133 MMOL/L (135-145); eGFR 17 ML/MIN
[2024-01-12 22:05] LABS: ABG HCO3 20.4 mmol/L (21.0-28.0); ABG PCO2 (T) 42.2 mmHg (35.0-48.0); ABG PH (T) 7.296 (7.350-7.450); FCOHb 0.1 % (0.5-1.5); FMetHb 0.3 % (0.0-1.5); FO2Hb 97.6 % (94.0-98.0); MODE VENT- ACPRVC; PEEP 8 cm H2O; RESPIRATORY RATE 28 b/min; TIDAL VOLUME 450 mL; TOTAL HEMOGLOBIN 8.8 G/dl (13.5-17.5)
[2024-01-12 22:06] LABS: OXYGEN SATURATION (MIXED VEN) 81.3 % (60-80)
[2024-01-12] MEDS: vasopressin inj. 40 UNIT in normal saline 50ml IV soln 38 ML IV SCH (22:53)
[2024-01-12] MEDS: DOBUTamine-DoBUTrex 500mg/D5W 250 ML IV PRN (23:18)
[2024-01-13] VITALS (80 sets, daily range): BP systolic 67–143; BP diastolic 40–77; PULSE 95–126; RESP 24–30; TEMP 98; O2SAT 90–96
[2024-01-13 00:43] LABS: HEMATOCRIT 25.1 % (42.0-52.0); RED BLOOD COUNT 2.81 X10'6 (4.70-6.10)
[2024-01-13 00:45] LABS: HEMOGLOBIN 8.3 g/dl (14.0-17.9); MEAN CORPUSCULAR HEMOGLOBIN 29.7 PG (27.0-31.0); MEAN CORPUSCULAR HGB CONC 33.3 g/dL (33.0-36.5); MEAN CORPUSCULAR VOLUME 89.2 FL (78-98); MEAN PLATELET VOLUME 7.9 FL (7.4-10.4); PLATELET COUNT 237 X10'3 (140-440); RED CELL DISTRIBUTION WIDTH 16.4 % (11.5-14.5)
[2024-01-13 00:55] LABS: ALBUMIN 1.7 G/DL (3.4-5.0); ANION GAP 10 (8-16); BLOOD UREA NITROGEN 52 MG/DL (7-18); BUN/CREATININE RATIO 16.4 (10.0-20.0); CHLORIDE 99 MMOL/L (99-107); CREATININE 3.17 MG/DL (0.60-1.10); GLUCOSE 168 MG/DL (70-104); MAGNESIUM 2.3 MG/DL (1.5-2.4); POTASSIUM 4.3 MMOL/L (3.5-5.1); SODIUM 133 MMOL/L (135-145); TOTAL CARBON DIOXIDE 24.2 MMOL/L (24-32); eGFR 19 ML/MIN
[2024-01-13 00:56] LABS: WHITE BLOOD COUNT 28.3 X10'3 (4.5-11.0)
[2024-01-13] MEDS: INSULIN LISPRO 100 UNIT/ML INSULN.PEN MULTI-DOSE SQ SCH (02:42)
[2024-01-13 02:46] LABS: NUCLEATED RED BLOOD CELLS 1 /100WBC (0-0); TOTAL CELLS COUNTED 100
[2024-01-13 02:50] LABS: ANISOCYTOSIS 1+; BURR CELLS 1+; PLATELET ESTIMATE NORMAL; TARGET CELLS FEW
[2024-01-13 02:52] LABS: ELLIPTOCYTES FEW; HYPOCHROMASIA 1+; SCHISTOCYTES FEW
[2024-01-13 03:25] LABS: ABG BASE EXCESS -3.2 mmol/L (-2.0-3.0); ABG HCO3 22.8 mmol/L (21.0-28.0); ABG OXYGEN SATURATION 93.9 % (94.0-98.0); ABG PCO2 (T) 43.5 mmHg (35.0-48.0); ABG PH (T) 7.333 (7.350-7.450); ABG PO2 (T) 70.2 mmHg (83.0-108.0); FCOHb 0.8 % (0.5-1.5); FMetHb 0.3 % (0.0-1.5); FO2Hb 92.9 % (94.0-98.0); MODE VENT-AC PRVC; PATIENT TEMPERATURE 36.1; PEEP 5 cm H2O; RESPIRATORY RATE 28 b/min; TIDAL VOLUME 450 mL; TOTAL HEMOGLOBIN 8.9 G/dl (13.5-17.5)
[2024-01-13 03:28] LABS: OXYGEN SATURATION (MIXED VEN) 72.5 % (60-80); PO2 MIXED VENOUS (TEMP COR) 39.3 mmHg (35-46)
[2024-01-13 06:19] LABS: ALANINE AMINOTRANSFERASE 749 U/L (12-78); ALBUMIN 1.5 G/DL (3.4-5.0); ALBUMIN/GLOBULIN RATIO 0.4 (1.1-1.5); ALKALINE PHOSPHATASE 79 IU/L (46-116); ANION GAP 10 (8-16); ASPARTATE AMINO TRANSFERASE 677 U/L (10-37); BILIRUBIN,TOTAL 0.7 MG/DL (0.1-1.0); BLOOD UREA NITROGEN 43 MG/DL (7-18); BUN/CREATININE RATIO 15.7 (10.0-20.0); CALCIUM 7.7 MG/DL (8.5-10.1); CALCIUM CVVH 7.7 MG/DL (8.5-10.1); CHLORIDE 101 MMOL/L (99-107); CREATININE 2.74 MG/DL (0.60-1.10); GLUCOSE 145 MG/DL (70-104); POTASSIUM 4.3 MMOL/L (3.5-5.1); SODIUM 136 MMOL/L (135-145); TOTAL CARBON DIOXIDE 25.3 MMOL/L (24-32); eCRCL 19 ML/MIN; eGFR 22 ML/MIN
[2024-01-13 06:23] LABS: BASOPHILS % (AUTO) 0.1 % (0-1); EOSINOPHILS % (AUTO) 0.1 % (0-6); HEMATOCRIT 25.3 % (42.0-52.0); HEMOGLOBIN 8.6 g/dl (14.0-17.9); LYMPHOCYTES # (AUTO) 0.6 X10'3 (1.1-4.8); MEAN CORPUSCULAR HEMOGLOBIN 30.2 PG (27.0-31.0); MEAN CORPUSCULAR VOLUME 88.9 FL (78-98); MONOCYTES # (AUTO) 1.7 X10'3 (0-0.9); MONOCYTES % (AUTO) 5.4 % (2-12); NEUTROPHILS # (AUTO) 28.5 X10'3 (1.8-7.7); NEUTROPHILS % (AUTO) 92.4 % (42-75); PLATELET COUNT 220 X10'3 (140-440); RED BLOOD COUNT 2.85 X10'6 (4.70-6.10); RED CELL DISTRIBUTION WIDTH 16.2 % (11.5-14.5)
[2024-01-13 06:31] LABS: MAGNESIUM 2.2 MG/DL (1.5-2.4); PHOSPHORUS 3.9 MG/DL (2.3-4.5); TRIGLYCERIDES 119 MG/DL (20-135); VANCOMYCIN,RANDOM 8.7 ug/mL (20.0-30.0)
[2024-01-13 07:00] LABS: WHITE BLOOD COUNT 30.8 X10'3 (4.5-11.0)
[2024-01-13 07:01] LABS: DIGOXIN 2.4 NG/ML (0.9-1.9)
[2024-01-13] MEDS: vancomycin/NS 1 GM ADD-VANTAGE 250 ML IV SCH (08:26)
[2024-01-13] MEDS: NORepinephrine 32 MG in normal saline 250ml IV soln 218 ML IV SCH (08:26)
[2024-01-13 09:06] LABS: BILIRUBIN,URINE SMALL (Neg); CLARITY,URINE CLOUDY (Clear); COLOR,URINE YELLOW (Yellow); GLUCOSE, URINE NEGATIVE (Neg); KETONES,URINE 15 mg/dl (Neg); LEUKOCYTE ESTERASE ,URINE NEGATIVE (Neg); NITRITES, URINE POSITIVE (Neg); OCCULT BLOOD,URINE LARGE (Neg); PROTEIN,URINE 30 mg/dl (Neg); UROBILINOGEN,URINE 0.2 E.U/dL (0.2-1.0)
[2024-01-13 09:13] LABS: UA COLLECTION TYPE NON-SPECIFIED
[2024-01-13 09:14] LABS: BACTERIA,URINE 3+ /HPF (Neg); COARSE GRANULAR CAST >30 /LPF (NEGATIVE)
[2024-01-13 09:15] LABS: AMORPHOUS URATES 3+; SPERM MANY /HPF (NEGATIVE)
[2024-01-13 09:16] LABS: RBC,URINE 50-100 /HPF (0-2); SQUAMOUS EPITHELIAL CELL,UR MODERATE /LPF (FEW); WBC,URINE 50-100 /HPF (0-4)
[2024-01-13] MEDS: albumin (human) 25% 100 ML IV solution IV SCH (10:33)
[2024-01-13] MEDS: erythromycin ethylsuccinate 200mg/5mL ORAL suspension OGT SCH (12:11)
[2024-01-13 12:22] LABS: BASOPHILS # (AUTO) 0.1 X10'3 (0-0.2); BASOPHILS % (AUTO) 0.2 % (0-1); EOSINOPHILS # (AUTO) 0.1 X10'3 (0-0.9); EOSINOPHILS % (AUTO) 0.3 % (0-6); HEMATOCRIT 24.6 % (42.0-52.0); HEMOGLOBIN 8.3 g/dl (14.0-17.9); LYMPHOCYTES # (AUTO) 0.4 X10'3 (1.1-4.8); LYMPHOCYTES % (AUTO) 1.2 % (21-51); MEAN CORPUSCULAR HEMOGLOBIN 30.1 PG (27.0-31.0); MEAN CORPUSCULAR HGB CONC 33.7 g/dL (33.0-36.5); MEAN CORPUSCULAR VOLUME 89.3 FL (78-98); MEAN PLATELET VOLUME 7.8 FL (7.4-10.4); MONOCYTES # (AUTO) 1.8 X10'3 (0-0.9); MONOCYTES % (AUTO) 5.4 % (2-12); NEUTROPHILS # (AUTO) 31.5 X10'3 (1.8-7.7); NEUTROPHILS % (AUTO) 92.9 % (42-75); PLATELET COUNT 158 X10'3 (140-440); RED BLOOD COUNT 2.76 X10'6 (4.70-6.10); RED CELL DISTRIBUTION WIDTH 16.5 % (11.5-14.5)
[2024-01-13] MEDS: meropenem inj 500 MG in normal saline 100ml IV soln 100 ML IV SCH (13:34)
[2024-01-13 13:45] LABS: ALBUMIN 2.1 G/DL (3.4-5.0); ANION GAP 12 (8-16); BLOOD UREA NITROGEN 41 MG/DL (7-18); BUN/CREATININE RATIO 16.7 (10.0-20.0); CHLORIDE 101 MMOL/L (99-107); CREATININE 2.45 MG/DL (0.60-1.10); GLUCOSE 135 MG/DL (70-104); MAGNESIUM 2.1 MG/DL (1.5-2.4); PHOSPHORUS 3.4 MG/DL (2.3-4.5); POTASSIUM 4.4 MMOL/L (3.5-5.1); SODIUM 136 MMOL/L (135-145); TOTAL CARBON DIOXIDE 22.9 MMOL/L (24-32); eGFR 25 ML/MIN
[2024-01-13] MEDS ORDERED: albumin (human) 25% 100 ML IV solution IV SCH (14:00)
[2024-01-13] MEDS ORDERED: Dextrose 10%-water IV solution 1,000 ML IV PRN (14:15)
[2024-01-13 17:30] LABS: HEMATOCRIT 23.3 % (42.0-52.0); HEMOGLOBIN 7.8 g/dl (14.0-17.9); MEAN PLATELET VOLUME 7.6 FL (7.4-10.4); RED BLOOD COUNT 2.61 X10'6 (4.70-6.10); RED CELL DISTRIBUTION WIDTH 16.2 % (11.5-14.5)
[2024-01-13 17:32] LABS: BASOPHILS % (AUTO) 0 % (0-1); EOSINOPHILS % (AUTO) 0.1 % (0-6); LYMPHOCYTES # (AUTO) 0.5 X10'3 (1.1-4.8); LYMPHOCYTES % (AUTO) 1.6 % (21-51); MEAN CORPUSCULAR HEMOGLOBIN 29.9 PG (27.0-31.0); MEAN CORPUSCULAR HGB CONC 33.7 g/dL (33.0-36.5); MONOCYTES # (AUTO) 1.7 X10'3 (0-0.9); NEUTROPHILS # (AUTO) 32.4 X10'3 (1.8-7.7); NEUTROPHILS % (AUTO) 93.3 % (42-75); PLATELET COUNT 122 X10'3 (140-440)
[2024-01-13] MEDS: fat emulsion 20% inj. 100 ML IV SCH (20:57)
[2024-01-13] MEDS: insulin regular, human U-100 10ml vial - multi-dose SQ SCH (21:01)
[2024-01-13] MEDS: MVI, adult No.4 with vit. K 10 ML in dextrose 5% water 500ml 500 ML IV SCH (21:18)
[2024-01-13] MEDS: ZINC/COPPER/MANGANESE/SELENIUM 1 ML, chromic chloride inj. 10 MCG in AMINO ACIDS 5 %/DE... IV SCH (21:19)
[2024-01-13 22:47] LABS: ALANINE AMINOTRANSFERASE 641 U/L (12-78); ALBUMIN 2.6 G/DL (3.4-5.0); ALBUMIN/GLOBULIN RATIO 0.9 (1.1-1.5); ALKALINE PHOSPHATASE 82 IU/L (46-116); ANION GAP 13 (8-16); ASPARTATE AMINO TRANSFERASE 431 U/L (10-37); BILIRUBIN,TOTAL 1.1 MG/DL (0.1-1.0); BLOOD UREA NITROGEN 38 MG/DL (7-18); BUN/CREATININE RATIO 17.6 (10.0-20.0); CALCIUM 8.2 MG/DL (8.5-10.1); CALCIUM CVVH 8.2 MG/DL (8.5-10.1); CHLORIDE 102 MMOL/L (99-107); CREATININE 2.16 MG/DL (0.60-1.10); GLUCOSE 125 MG/DL (70-104); POTASSIUM 4.3 MMOL/L (3.5-5.1); SODIUM 138 MMOL/L (135-145); TOTAL CARBON DIOXIDE 22.9 MMOL/L (24-32); TOTAL PROTEIN 5.4 G/DL (6.4-8.2); eCRCL 24 ML/MIN; eGFR 29 ML/MIN
[2024-01-13 22:48] LABS: MAGNESIUM 2.1 MG/DL (1.5-2.4); PREALBUMIN 7.3 MG/DL (19-36); VANCOMYCIN,RANDOM 15.4 ug/mL (20.0-30.0)
[2024-01-14] VITALS (85 sets, daily range): BP systolic 83–137; BP diastolic 45–68; PULSE 52–118; RESP 12–31; TEMP 96–98.2; O2SAT 88–99
[2024-01-14] LABS: DIGOXIN 1.6 NG/ML (0.9-1.9)
[2024-01-14 00:17] LABS: TRIGLYCERIDES 111 MG/DL (20-135)
[2024-01-14 00:56] LABS: ALBUMIN 2.7 G/DL (3.4-5.0); ANION GAP 11 (8-16); BLOOD UREA NITROGEN 34 MG/DL (7-18); CALCIUM CVVH 8.1 MG/DL (8.5-10.1); CHLORIDE 100 MMOL/L (99-107); GLUCOSE 247 MG/DL (70-104); PHOSPHORUS 2.7 MG/DL (2.3-4.5); SODIUM 135 MMOL/L (135-145); TOTAL CARBON DIOXIDE 23.9 MMOL/L (24-32); eGFR 32 ML/MIN
[2024-01-14 01:35] LABS: BASOPHILS # (AUTO) 0.1 X10'3 (0-0.2); RED BLOOD COUNT 2.61 X10'6 (4.70-6.10)
[2024-01-14 01:37] LABS: BASOPHILS % (AUTO) 0.1 % (0-1); EOSINOPHILS % (AUTO) 0.1 % (0-6); HEMATOCRIT 23.2 % (42.0-52.0); HEMOGLOBIN 7.8 g/dl (14.0-17.9); LYMPHOCYTES # (AUTO) 0.7 X10'3 (1.1-4.8); LYMPHOCYTES % (AUTO) 2.1 % (21-51); MEAN CORPUSCULAR HEMOGLOBIN 29.8 PG (27.0-31.0); MEAN CORPUSCULAR HGB CONC 33.6 g/dL (33.0-36.5); MEAN CORPUSCULAR VOLUME 88.6 FL (78-98); MONOCYTES # (AUTO) 1.4 X10'3 (0-0.9); MONOCYTES % (AUTO) 3.7 % (2-12); NEUTROPHILS # (AUTO) 33.9 X10'3 (1.8-7.7); RED CELL DISTRIBUTION WIDTH 16.5 % (11.5-14.5)
[2024-01-14 02:44] LABS: ANISOCYTOSIS 1+; NUCLEATED RED BLOOD CELLS 3 /100WBC (0-0); PLATELET ESTIMATE DECREASED; TARGET CELLS 1+; TOTAL CELLS COUNTED 100
[2024-01-14 02:45] LABS: ACANTHOCYTES FEW; BURR CELLS 1+
[2024-01-14 02:48] LABS: WHITE BLOOD COUNT 36.1 X10'3 (4.5-11.0)
[2024-01-14 02:49] LABS: MEAN PLATELET VOLUME 7.4 FL (7.4-10.4)
[2024-01-14 02:50] LABS: PLATELET COUNT 75 X10'3 (140-440)
[2024-01-14 03:34] LABS: ABG BASE EXCESS -4.4 mmol/L (-2.0-3.0); ABG HCO3 20.9 mmol/L (21.0-28.0); ABG OXYGEN SATURATION 91.1 % (94.0-98.0); ABG PH (T) 7.346 (7.350-7.450); FCOHb 1.3 % (0.5-1.5); FHHb 8.8 % (0.0-5.0); FMetHb 0.3 % (0.0-1.5); FO2Hb 89.6 % (94.0-98.0); MODE vent-ac prvc; PEEP 5 cm H2O; RESPIRATORY RATE 28 b/min; TIDAL VOLUME 450 mL; TOTAL HEMOGLOBIN 7.9 G/dl (13.5-17.5)
[2024-01-14 05:58] LABS: HEMOGLOBIN 7.3 g/dl (14.0-17.9)
[2024-01-14 06:01] LABS: MEAN CORPUSCULAR HEMOGLOBIN 29.4 PG (27.0-31.0); MEAN CORPUSCULAR HGB CONC 33.3 g/dL (33.0-36.5); MEAN CORPUSCULAR VOLUME 88.3 FL (78-98); MEAN PLATELET VOLUME 7.9 FL (7.4-10.4); PLATELET COUNT 81 X10'3 (140-440); RED BLOOD COUNT 2.47 X10'6 (4.70-6.10); RED CELL DISTRIBUTION WIDTH 16.7 % (11.5-14.5)
[2024-01-14 06:49] LABS: ALANINE AMINOTRANSFERASE 408 U/L (12-78); ALBUMIN 2.7 G/DL (3.4-5.0); ALKALINE PHOSPHATASE 86 IU/L (46-116); ANION GAP 8 (8-16); ASPARTATE AMINO TRANSFERASE 187 U/L (10-37); BLOOD UREA NITROGEN 40 MG/DL (7-18); BUN/CREATININE RATIO 18.3 (10.0-20.0); CALCIUM 7.5 MG/DL (8.5-10.1); CALCIUM CVVH 7.5 MG/DL (8.5-10.1); CHLORIDE 101 MMOL/L (99-107); CREATININE 2.18 MG/DL (0.60-1.10); GLUCOSE 240 MG/DL (70-104); MAGNESIUM 2.1 MG/DL (1.5-2.4); PHOSPHORUS 2.3 MG/DL (2.3-4.5); SODIUM 134 MMOL/L (135-145); TOTAL CARBON DIOXIDE 24.7 MMOL/L (24-32); TOTAL PROTEIN 5.3 G/DL (6.4-8.2); eCRCL 24 ML/MIN; eGFR 29 ML/MIN
[2024-01-14 07:19] LABS: HEMATOCRIT 21.8 % (42.0-52.0); WHITE BLOOD COUNT 35.2 X10'3 (4.5-11.0)
[2024-01-14] MEDS: insulin regular, human U-100 10ml vial - multi-dose SQ SCH (08:00)
[2024-01-14 09:26] LABS: NUCLEATED RED BLOOD CELLS 3 /100WBC (0-0); TOTAL CELLS COUNTED 100
[2024-01-14 09:27] LABS: ANISOCYTOSIS 1+; BURR CELLS 2+; HYPOCHROMASIA 1+; PLATELET ESTIMATE DECREASED; SCHISTOCYTES FEW; TARGET CELLS 1+
[2024-01-14 09:43] LABS: ABG HCO3 24.2 mmol/L (21.0-28.0); ABG OXYGEN SATURATION 94.9 % (94.0-98.0); ABG PH (T) 7.385 (7.350-7.450); ABG PO2 (T) 78.6 mmHg (83.0-108.0); FCOHb 0.8 % (0.5-1.5); FMetHb 0.3 % (0.0-1.5); FO2Hb 93.9 % (94.0-98.0); MODE VENT - PRVC; PATIENT TEMPERATURE 36.2; PEEP 5 cm H2O; RESPIRATORY RATE 28 b/min; TIDAL VOLUME 450 mL; TOTAL HEMOGLOBIN 7.9 G/dl (13.5-17.5)
[2024-01-14 12:57] LABS: BASOPHILS % (AUTO) 0.1 % (0-1); EOSINOPHILS % (AUTO) 0 % (0-6); HEMATOCRIT 22.9 % (42.0-52.0); HEMOGLOBIN 7.5 g/dl (14.0-17.9); LYMPHOCYTES % (AUTO) 2.4 % (21-51); MEAN CORPUSCULAR HEMOGLOBIN 29.6 PG (27.0-31.0); MEAN CORPUSCULAR HGB CONC 32.9 g/dL (33.0-36.5); MEAN CORPUSCULAR VOLUME 89.9 FL (78-98); MEAN PLATELET VOLUME 8.4 FL (7.4-10.4); MONOCYTES # (AUTO) 1.9 X10'3 (0-0.9); MONOCYTES % (AUTO) 4.8 % (2-12); NEUTROPHILS # (AUTO) 36.8 X10'3 (1.8-7.7); NEUTROPHILS % (AUTO) 92.7 % (42-75); PLATELET COUNT 77 X10'3 (140-440); RED BLOOD COUNT 2.54 X10'6 (4.70-6.10); RED CELL DISTRIBUTION WIDTH 16.5 % (11.5-14.5)
[2024-01-14 13:05] LABS: ALBUMIN 2.9 G/DL (3.4-5.0); ANION GAP 6 (8-16); BLOOD UREA NITROGEN 35 MG/DL (7-18); BUN/CREATININE RATIO 19.6 (10.0-20.0); CHLORIDE 102 MMOL/L (99-107); CREATININE 1.79 MG/DL (0.60-1.10); GLUCOSE 270 MG/DL (70-104); MAGNESIUM 2.2 MG/DL (1.5-2.4); POTASSIUM 3.8 MMOL/L (3.5-5.1); SODIUM 135 MMOL/L (135-145); TOTAL CARBON DIOXIDE 26.7 MMOL/L (24-32); eGFR 37 ML/MIN
[2024-01-14 13:15] LABS: WHITE BLOOD COUNT 39.7 X10'3 (4.5-11.0)
[2024-01-14 13:17] LABS: PHOSPHORUS 2.1 MG/DL (2.3-4.5)
[2024-01-14] MEDS: INSULIN LISPRO 100 UNIT/ML INSULN.PEN MULTI-DOSE SQ SCH (13:19)
[2024-01-14] MEDS: sodium phosphate inj. 30 MMOL in dextrose 5%-water 250 ML IV PRN (14:02)
[2024-01-14] MEDS: hydrocortisone sod succ/PF 100mg/2ml inj. IV SCH (14:07)
[2024-01-14] MEDS: potassium Cl 40MEQ/270ML bag 270 ML IV PRN (14:09)
[2024-01-14] MEDS: amiodarone/D5 360MG/200ML BAG 200 ML IV SCH (16:59)
[2024-01-14 17:43] LABS: ALBUMIN 3.2 G/DL (3.4-5.0); ANION GAP 7 (8-16); BLOOD UREA NITROGEN 35 MG/DL (7-18); BUN/CREATININE RATIO 20.7 (10.0-20.0); CALCIUM CVVH 7.7 MG/DL (8.5-10.1); CHLORIDE 102 MMOL/L (99-107); CREATININE 1.69 MG/DL (0.60-1.10); GLUCOSE 287 MG/DL (70-104); PHOSPHORUS 3.6 MG/DL (2.3-4.5); POTASSIUM 4.2 MMOL/L (3.5-5.1); SODIUM 135 MMOL/L (135-145); TOTAL CARBON DIOXIDE 25.7 MMOL/L (24-32); eGFR 39 ML/MIN
[2024-01-14 17:45] LABS: BASOPHILS # (AUTO) 0.1 X10'3 (0-0.2); BASOPHILS % (AUTO) 0.2 % (0-1); EOSINOPHILS % (AUTO) 0 % (0-6); HEMATOCRIT 22.4 % (42.0-52.0); HEMOGLOBIN 7.3 g/dl (14.0-17.9); LYMPHOCYTES # (AUTO) 1.5 X10'3 (1.1-4.8); LYMPHOCYTES % (AUTO) 3.8 % (21-51); MEAN CORPUSCULAR HEMOGLOBIN 29.1 PG (27.0-31.0); MEAN CORPUSCULAR HGB CONC 32.6 g/dL (33.0-36.5); MEAN CORPUSCULAR VOLUME 89.3 FL (78-98); MEAN PLATELET VOLUME 8.8 FL (7.4-10.4); MONOCYTES # (AUTO) 1.5 X10'3 (0-0.9); MONOCYTES % (AUTO) 3.8 % (2-12); NEUTROPHILS % (AUTO) 92.2 % (42-75); PLATELET COUNT 73 X10'3 (140-440); RED BLOOD COUNT 2.51 X10'6 (4.70-6.10); RED CELL DISTRIBUTION WIDTH 17.1 % (11.5-14.5)
[2024-01-14] MEDS: ZINC/COPPER/MANGANESE/SELENIUM 1 ML, chromic chloride inj. 10 MCG in AMINO ACIDS 5 %/DE... IV SCH (21:22)
[2024-01-15] VITALS (44 sets, daily range): BP systolic 100–131; BP diastolic 49–61; PULSE 58–68; RESP 23–31; TEMP 97.7–98.6; O2SAT 92–98
[2024-01-15 00:03] LABS: HEMOGLOBIN 8.6 g/dl (14.0-17.9); RED CELL DISTRIBUTION WIDTH 16.4 % (11.5-14.5)
[2024-01-15 00:05] LABS: BASOPHILS % (AUTO) 0 % (0-1); EOSINOPHILS % (AUTO) 0 % (0-6); HEMATOCRIT 25.9 % (42.0-52.0); LYMPHOCYTES # (AUTO) 1.4 X10'3 (1.1-4.8); LYMPHOCYTES % (AUTO) 3.8 % (21-51); MEAN CORPUSCULAR HEMOGLOBIN 29.1 PG (27.0-31.0); MEAN CORPUSCULAR HGB CONC 33.1 g/dL (33.0-36.5); MEAN CORPUSCULAR VOLUME 87.9 FL (78-98); MEAN PLATELET VOLUME 8.5 FL (7.4-10.4); MONOCYTES # (AUTO) 1.4 X10'3 (0-0.9); NEUTROPHILS # (AUTO) 32.8 X10'3 (1.8-7.7); NEUTROPHILS % (AUTO) 92.2 % (42-75); PLATELET COUNT 55 X10'3 (140-440); RED BLOOD COUNT 2.95 X10'6 (4.70-6.10)
[2024-01-15 00:07] LABS: ALBUMIN 3.5 G/DL (3.4-5.0); ANION GAP 9 (8-16); BLOOD UREA NITROGEN 35 MG/DL (7-18); BUN/CREATININE RATIO 21.7 (10.0-20.0); CHLORIDE 102 MMOL/L (99-107); CREATININE 1.61 MG/DL (0.60-1.10); GLUCOSE 258 MG/DL (70-104); MAGNESIUM 1.9 MG/DL (1.5-2.4); PHOSPHORUS 2.4 MG/DL (2.3-4.5); POTASSIUM 4.2 MMOL/L (3.5-5.1); SODIUM 135 MMOL/L (135-145); TOTAL CARBON DIOXIDE 24.1 MMOL/L (24-32); eGFR 41 ML/MIN
[2024-01-15 00:54] LABS: WHITE BLOOD COUNT 35.6 X10'3 (4.5-11.0)
[2024-01-15 01:21] LABS: PLATELET ESTIMATE DECREASED
[2024-01-15 01:22] LABS: ANISOCYTOSIS 1+; POLYCHROMASIA FEW
[2024-01-15 01:23] LABS: ELLIPTOCYTES FEW; SCHISTOCYTES FEW
[2024-01-15 01:24] LABS: BURR CELLS 2+; TARGET CELLS 1+
[2024-01-15 03:24] LABS: ABG HCO3 24.1 mmol/L (21.0-28.0); ABG OXYGEN SATURATION 94.6 % (94.0-98.0); ABG PCO2 (T) 47.1 mmHg (35.0-48.0); ABG PH (T) 7.326 (7.350-7.450); ABG PO2 (T) 77.5 mmHg (83.0-108.0); FCOHb 0.5 % (0.5-1.5); FHHb 5.4 % (0.0-5.0); FMetHb 0.3 % (0.0-1.5); FO2Hb 93.8 % (94.0-98.0); MODE VENT-AC PRVC; PATIENT TEMPERATURE 36.6; PEEP 5 cm H2O; RESPIRATORY RATE 28 b/min; TIDAL VOLUME 450 mL; TOTAL HEMOGLOBIN 9.1 G/dl (13.5-17.5)
[2024-01-15 05:55] LABS: BASOPHILS % (AUTO) 0.1 % (0-1); MEAN CORPUSCULAR VOLUME 88.8 FL (78-98)
[2024-01-15 05:59] LABS: EOSINOPHILS % (AUTO) 0 % (0-6); HEMATOCRIT 24.9 % (42.0-52.0); HEMOGLOBIN 8.2 g/dl (14.0-17.9); LYMPHOCYTES # (AUTO) 1.7 X10'3 (1.1-4.8); LYMPHOCYTES % (AUTO) 4.7 % (21-51); MEAN CORPUSCULAR HEMOGLOBIN 29.3 PG (27.0-31.0); MEAN PLATELET VOLUME 8.5 FL (7.4-10.4); MONOCYTES # (AUTO) 1.5 X10'3 (0-0.9); MONOCYTES % (AUTO) 3.9 % (2-12); NEUTROPHILS # (AUTO) 34.2 X10'3 (1.8-7.7); NEUTROPHILS % (AUTO) 91.3 % (42-75); RED CELL DISTRIBUTION WIDTH 16.8 % (11.5-14.5)
[2024-01-15 06:18] LABS: ALANINE AMINOTRANSFERASE 230 U/L (12-78); ALBUMIN 3.5 G/DL (3.4-5.0); ALBUMIN/GLOBULIN RATIO 1.7 (1.1-1.5); ALKALINE PHOSPHATASE 75 IU/L (46-116); ANION GAP 8 (8-16); ASPARTATE AMINO TRANSFERASE 81 U/L (10-37); BILIRUBIN,TOTAL 1.2 MG/DL (0.1-1.0); BLOOD UREA NITROGEN 37 MG/DL (7-18); BUN/CREATININE RATIO 22.6 (10.0-20.0); CALCIUM 7.9 MG/DL (8.5-10.1); CALCIUM CVVH 7.9 MG/DL (8.5-10.1); CHLORIDE 102 MMOL/L (99-107); CREATININE 1.64 MG/DL (0.60-1.10); GLUCOSE 304 MG/DL (70-104); MAGNESIUM 1.9 MG/DL (1.5-2.4); POTASSIUM 4.1 MMOL/L (3.5-5.1); SODIUM 134 MMOL/L (135-145); TOTAL CARBON DIOXIDE 24.5 MMOL/L (24-32); TOTAL PROTEIN 5.6 G/DL (6.4-8.2); eCRCL 34 ML/MIN; eGFR 41 ML/MIN
[2024-01-15 06:37] LABS: WHITE BLOOD COUNT 37.4 X10'3 (4.5-11.0)
[2024-01-15 06:38] LABS: PLATELET COUNT 39 X10'3 (140-440)
[2024-01-15 08:06] LABS: NUCLEATED RED BLOOD CELLS 4 /100WBC (0-0); PLATELET ESTIMATE DECREASED; TOTAL CELLS COUNTED 100
[2024-01-15 08:07] LABS: BURR CELLS FEW; TARGET CELLS 1+
[2024-01-15 08:08] LABS: ANISOCYTOSIS 1+; ELLIPTOCYTES FEW; POLYCHROMASIA FEW
[2024-01-15 12:21] LABS: HEMOGLOBIN 8.1 g/dl (14.0-17.9); RED BLOOD COUNT 2.79 X10'6 (4.70-6.10)
[2024-01-15 12:23] LABS: BASOPHILS % (AUTO) 0.1 % (0-1); EOSINOPHILS % (AUTO) 0.1 % (0-6); HEMATOCRIT 24.5 % (42.0-52.0); LYMPHOCYTES # (AUTO) 1.9 X10'3 (1.1-4.8); MEAN CORPUSCULAR HEMOGLOBIN 29.1 PG (27.0-31.0); MEAN CORPUSCULAR HGB CONC 33.2 g/dL (33.0-36.5); MEAN CORPUSCULAR VOLUME 87.8 FL (78-98); MEAN PLATELET VOLUME 11.8 FL (7.4-10.4); MONOCYTES # (AUTO) 1.5 X10'3 (0-0.9); NEUTROPHILS # (AUTO) 34.4 X10'3 (1.8-7.7); NEUTROPHILS % (AUTO) 90.8 % (42-75); RED CELL DISTRIBUTION WIDTH 16.4 % (11.5-14.5)
[2024-01-15 12:26] LABS: ALBUMIN 3.4 G/DL (3.4-5.0); ANION GAP 8 (8-16); BLOOD UREA NITROGEN 38 MG/DL (7-18); BUN/CREATININE RATIO 24.4 (10.0-20.0); CALCIUM CVVH 7.7 MG/DL (8.5-10.1); CHLORIDE 102 MMOL/L (99-107); CREATININE 1.56 MG/DL (0.60-1.10); GLUCOSE 349 MG/DL (70-104); MAGNESIUM 1.9 MG/DL (1.5-2.4); PHOSPHORUS 2.8 MG/DL (2.3-4.5); POTASSIUM 3.9 MMOL/L (3.5-5.1); SODIUM 134 MMOL/L (135-145); TOTAL CARBON DIOXIDE 24.2 MMOL/L (24-32); eGFR 43 ML/MIN
[2024-01-15 12:44] LABS: PLATELET COUNT 18 X10'3 (140-440); WHITE BLOOD COUNT 37.8 X10'3 (4.5-11.0)
[2024-01-15 14:05] LABS: WHITE BLOOD COUNT 34.8 X10'3 (4.5-11.0)
[2024-01-15] MEDS ORDERED: dextrose 50%-water 50ml dispensing syringe IV PRN (14:40)
[2024-01-15] MEDS: Insulin Reg/NS 100units/100mL 100 ML IV SCH (15:12)
[2024-01-15] MEDS ORDERED: insulin Lispro (HumaLOG) vial - multi-dose SQ ONE (15:20)
[2024-01-15] MEDS: INSULIN LISPRO 100 UNIT/ML INSULN.PEN MULTI-DOSE SQ ONE (15:41)
[2024-01-15] MEDS: insulin regular, human U-100 10ml vial - multi-dose SQ PRN (17:21)
[2024-01-15 18:14] LABS: BASOPHILS % (AUTO) 0.1 % (0-1); EOSINOPHILS % (AUTO) 0.1 % (0-6)
[2024-01-15 18:17] LABS: HEMATOCRIT 23.4 % (42.0-52.0); HEMOGLOBIN 7.8 g/dl (14.0-17.9); LYMPHOCYTES % (AUTO) 5.6 % (21-51); MEAN CORPUSCULAR HEMOGLOBIN 29.3 PG (27.0-31.0); MEAN CORPUSCULAR HGB CONC 33.2 g/dL (33.0-36.5); MEAN CORPUSCULAR VOLUME 88.3 FL (78-98); MEAN PLATELET VOLUME 10.6 FL (7.4-10.4); MONOCYTES # (AUTO) 1.6 X10'3 (0-0.9); MONOCYTES % (AUTO) 4.3 % (2-12); NEUTROPHILS # (AUTO) 32.6 X10'3 (1.8-7.7); NEUTROPHILS % (AUTO) 89.9 % (42-75); RED BLOOD COUNT 2.65 X10'6 (4.70-6.10); RED CELL DISTRIBUTION WIDTH 16.8 % (11.5-14.5)
[2024-01-15 18:28] LABS: ALBUMIN 3.3 G/DL (3.4-5.0); ANION GAP 5 (8-16); BLOOD UREA NITROGEN 40 MG/DL (7-18); BUN/CREATININE RATIO 24.1 (10.0-20.0); CALCIUM CVVH 7.8 MG/DL (8.5-10.1); CHLORIDE 104 MMOL/L (99-107); CREATININE 1.66 MG/DL (0.60-1.10); GLUCOSE 314 MG/DL (70-104); MAGNESIUM 1.8 MG/DL (1.5-2.4); PHOSPHORUS 2.3 MG/DL (2.3-4.5); POTASSIUM 3.8 MMOL/L (3.5-5.1); SODIUM 134 MMOL/L (135-145); TOTAL CARBON DIOXIDE 24.9 MMOL/L (24-32); eGFR 40 ML/MIN
[2024-01-15 18:29] LABS: WHITE BLOOD COUNT 36.2 X10'3 (4.5-11.0)
[2024-01-15 18:30] LABS: PLATELET COUNT 17 X10'3 (140-440)
[2024-01-15 21:46] LABS: ABG BASE EXCESS -4.2 mmol/L (-2.0-3.0); ABG HCO3 20.5 mmol/L (21.0-28.0); ABG OXYGEN SATURATION 96.8 % (94.0-98.0); ABG PCO2 (T) 35.3 mmHg (35.0-48.0); ABG PH (T) 7.381 (7.350-7.450); ABG PO2 (T) 91.3 mmHg (83.0-108.0); FCOHb 0.7 % (0.5-1.5); FHHb 3.2 % (0.0-5.0); FMetHb 0.3 % (0.0-1.5); FO2Hb 95.8 % (94.0-98.0); MODE VENT-AC PRVC; PATIENT TEMPERATURE 36.6; PEEP 5 cm H2O; RESPIRATORY RATE 28 b/min; TIDAL VOLUME 450 mL; TOTAL HEMOGLOBIN 8.6 G/dl (13.5-17.5)
[2024-01-16] VITALS (48 sets, daily range): BP systolic 95–131; BP diastolic 43–56; PULSE 56–69; RESP 26–32; TEMP 97–98.7; O2SAT 93–99
[2024-01-16 01:01] LABS: EOSINOPHILS % (AUTO) 0.1 % (0-6); HEMATOCRIT 25.2 % (42.0-52.0); HEMOGLOBIN 8.2 g/dl (14.0-17.9); MEAN CORPUSCULAR VOLUME 89.4 FL (78-98)
[2024-01-16 01:03] LABS: BASOPHILS % (AUTO) 0.2 % (0-1); LYMPHOCYTES # (AUTO) 0.9 X10'3 (1.1-4.8); LYMPHOCYTES % (AUTO) 3.5 % (21-51); MEAN CORPUSCULAR HEMOGLOBIN 29.2 PG (27.0-31.0); MEAN CORPUSCULAR HGB CONC 32.6 g/dL (33.0-36.5); MONOCYTES # (AUTO) 0.6 X10'3 (0-0.9); MONOCYTES % (AUTO) 2.2 % (2-12); NEUTROPHILS # (AUTO) 25.4 X10'3 (1.8-7.7); RED BLOOD COUNT 2.82 X10'6 (4.70-6.10); RED CELL DISTRIBUTION WIDTH 17.2 % (11.5-14.5)
[2024-01-16 01:30] LABS: ABG BASE EXCESS -2.6 mmol/L (-2.0-3.0); ABG HCO3 23.9 mmol/L (21.0-28.0); ABG OXYGEN SATURATION 92.5 % (94.0-98.0); ABG PCO2 (T) 48.1 mmHg (35.0-48.0); ABG PO2 (T) 69.4 mmHg (83.0-108.0); FCOHb 0.5 % (0.5-1.5); FHHb 7.4 % (0.0-5.0); FMetHb 0.3 % (0.0-1.5); FO2Hb 91.8 % (94.0-98.0); PATIENT TEMPERATURE 36.2; PEEP 5 cm H2O; RESPIRATORY RATE 28 b/min; TIDAL VOLUME 450 mL; TOTAL HEMOGLOBIN 9.1 G/dl (13.5-17.5)
[2024-01-16 01:36] LABS: ALBUMIN 3.7 G/DL (3.4-5.0); ANION GAP 9 (8-16); BLOOD UREA NITROGEN 36 MG/DL (7-18); BUN/CREATININE RATIO 25.2 (10.0-20.0); CALCIUM CVVH 8.2 MG/DL (8.5-10.1); CHLORIDE 103 MMOL/L (99-107); CREATININE 1.43 MG/DL (0.60-1.10); GLUCOSE 188 MG/DL (70-104); MAGNESIUM 1.8 MG/DL (1.5-2.4); POTASSIUM 3.7 MMOL/L (3.5-5.1); SODIUM 137 MMOL/L (135-145); TOTAL CARBON DIOXIDE 25.2 MMOL/L (24-32); eGFR 47 ML/MIN
[2024-01-16 01:37] LABS: PLATELET COUNT 70 X10'3 (140-440)
[2024-01-16 03:04] LABS: NUCLEATED RED BLOOD CELLS 18 /100WBC (0-0); TOTAL CELLS COUNTED 100
[2024-01-16 03:05] LABS: ANISOCYTOSIS 1+; PLATELET ESTIMATE DECREASED
[2024-01-16 03:08] LABS: ELLIPTOCYTES FEW; HYPOCHROMASIA 1+; TARGET CELLS 2+
[2024-01-16 03:09] LABS: BURR CELLS FEW; SCHISTOCYTES 1+
[2024-01-16 04:49] LABS: ABG BASE EXCESS -0.8 mmol/L (-2.0-3.0); ABG HCO3 25.8 mmol/L (21.0-28.0); ABG OXYGEN SATURATION 98.7 % (94.0-98.0); ABG PCO2 (T) 51.2 mmHg (35.0-48.0); ABG PH (T) 7.316 (7.350-7.450); ABG PO2 (T) 134.6 mmHg (83.0-108.0); FCOHb 0.9 % (0.5-1.5); FHHb 1.3 % (0.0-5.0); FMetHb 0.3 % (0.0-1.5); FO2Hb 97.5 % (94.0-98.0); MODE VENT-AC PRVC; PATIENT TEMPERATURE 36.2; PEEP 5 cm H2O; RESPIRATORY RATE 28 b/min; TIDAL VOLUME 450 mL; TOTAL HEMOGLOBIN 8.3 G/dl (13.5-17.5)
[2024-01-16 06:46] LABS: ALBUMIN 3.8 G/DL (3.4-5.0); ANION GAP 7 (8-16); BLOOD UREA NITROGEN 34 MG/DL (7-18); BUN/CREATININE RATIO 24.8 (10.0-20.0); CALCIUM CVVH 8.2 MG/DL (8.5-10.1); CHLORIDE 104 MMOL/L (99-107); CREATININE 1.37 MG/DL (0.60-1.10); GLUCOSE 116 MG/DL (70-104); MAGNESIUM 1.9 MG/DL (1.5-2.4); PHOSPHORUS 1.8 MG/DL (2.3-4.5); POTASSIUM 3.8 MMOL/L (3.5-5.1); SODIUM 137 MMOL/L (135-145); TOTAL CARBON DIOXIDE 26.1 MMOL/L (24-32); eGFR 50 ML/MIN
[2024-01-16 07:12] LABS: BASOPHILS % (AUTO) 0.1 % (0-1); EOSINOPHILS # (AUTO) 0.1 X10'3 (0-0.9); EOSINOPHILS % (AUTO) 0.2 % (0-6)
[2024-01-16 07:19] LABS: HEMATOCRIT 24.4 % (42.0-52.0); LYMPHOCYTES # (AUTO) 1.4 X10'3 (1.1-4.8); LYMPHOCYTES % (AUTO) 3.2 % (21-51); MEAN CORPUSCULAR HEMOGLOBIN 29.2 PG (27.0-31.0); MEAN CORPUSCULAR HGB CONC 32.6 g/dL (33.0-36.5); MEAN CORPUSCULAR VOLUME 89.5 FL (78-98); MEAN PLATELET VOLUME 8.1 FL (7.4-10.4); MONOCYTES # (AUTO) 2.1 X10'3 (0-0.9); MONOCYTES % (AUTO) 4.9 % (2-12); NEUTROPHILS # (AUTO) 39.3 X10'3 (1.8-7.7); NEUTROPHILS % (AUTO) 91.6 % (42-75); PLATELET COUNT 53 X10'3 (140-440); RED BLOOD COUNT 2.73 X10'6 (4.70-6.10); RED CELL DISTRIBUTION WIDTH 17.5 % (11.5-14.5)
[2024-01-16 07:35] LABS: WHITE BLOOD COUNT 42.9 X10'3 (4.5-11.0)
[2024-01-16 08:08] LABS: MODE VENT-AC PRVC
[2024-01-16 08:11] LABS: ALANINE AMINOTRANSFERASE 157 U/L (12-78); ALBUMIN/GLOBULIN RATIO 1.7 (1.1-1.5); ALKALINE PHOSPHATASE 89 IU/L (46-116); ASPARTATE AMINO TRANSFERASE 79 U/L (10-37); PREALBUMIN 12.7 MG/DL (19-36)
[2024-01-16] MEDS: vancomycin/NS 1 GM ADD-VANTAGE 250 ML IV SCH (08:47)
[2024-01-16 10:13] LABS: NUCLEATED RED BLOOD CELLS 18 /100WBC (0-0); TOTAL CELLS COUNTED 100
[2024-01-16 10:21] LABS: PLATELET ESTIMATE DECREASED
[2024-01-16 10:22] LABS: BURR CELLS FEW; ELLIPTOCYTES FEW; HYPOCHROMASIA 3+; TARGET CELLS 1+
[2024-01-16] MEDS ORDERED: HYDROcodone/acetaminophen 7.5MG/325MG per 15ml UD CUP OGT PRN ×2 (11:28)
[2024-01-16] MEDS: diatr meglu/diatrizoate 30ml oral sol.-(3 dose) bottle OGT SCH ×2 (11:47→21:00)
[2024-01-16 11:57] LABS: EOSINOPHILS # (AUTO) 0.1 X10'3 (0-0.9); EOSINOPHILS % (AUTO) 0.2 % (0-6); HEMOGLOBIN 7.8 g/dl (14.0-17.9); LYMPHOCYTES # (AUTO) 1.4 X10'3 (1.1-4.8); MEAN CORPUSCULAR HEMOGLOBIN 28.5 PG (27.0-31.0); RED BLOOD COUNT 2.74 X10'6 (4.70-6.10)
[2024-01-16 12:00] LABS: BASOPHILS % (AUTO) 0.1 % (0-1); HEMATOCRIT 24.5 % (42.0-52.0); LYMPHOCYTES % (AUTO) 3.2 % (21-51); MEAN CORPUSCULAR HGB CONC 31.9 g/dL (33.0-36.5); MEAN CORPUSCULAR VOLUME 89.5 FL (78-98); MONOCYTES # (AUTO) 2.1 X10'3 (0-0.9); NEUTROPHILS # (AUTO) 38.9 X10'3 (1.8-7.7); NEUTROPHILS % (AUTO) 91.5 % (42-75); RED CELL DISTRIBUTION WIDTH 17.2 % (11.5-14.5)
[2024-01-16 12:03] LABS: WHITE BLOOD COUNT 42.6 X10'3 (4.5-11.0)
[2024-01-16 12:04] LABS: PLATELET COUNT 45 X10'3 (140-440)
[2024-01-16 12:10] LABS: ALBUMIN 3.7 G/DL (3.4-5.0); ANION GAP 6 (8-16); BLOOD UREA NITROGEN 31 MG/DL (7-18); BUN/CREATININE RATIO 24.2 (10.0-20.0); CHLORIDE 104 MMOL/L (99-107); CREATININE 1.28 MG/DL (0.60-1.10); GLUCOSE 143 MG/DL (70-104); MAGNESIUM 1.7 MG/DL (1.5-2.4); PHOSPHORUS 2.5 MG/DL (2.3-4.5); POTASSIUM 4.6 MMOL/L (3.5-5.1); SODIUM 136 MMOL/L (135-145); TOTAL CARBON DIOXIDE 25.9 MMOL/L (24-32); eGFR 54 ML/MIN
[2024-01-16 13:07] LABS: CALCIUM 8.2 MG/DL (8.5-10.1)
[2024-01-16 13:56] LABS: eCRCL 41 ML/MIN
[2024-01-16 18:20] LABS: BASOPHILS % (AUTO) 0.1 % (0-1); EOSINOPHILS % (AUTO) 0.1 % (0-6); MEAN CORPUSCULAR HEMOGLOBIN 28.7 PG (27.0-31.0); RED CELL DISTRIBUTION WIDTH 17.4 % (11.5-14.5)
[2024-01-16 18:22] LABS: HEMATOCRIT 24.2 % (42.0-52.0); HEMOGLOBIN 7.8 g/dl (14.0-17.9); LYMPHOCYTES # (AUTO) 1.9 X10'3 (1.1-4.8); LYMPHOCYTES % (AUTO) 4.4 % (21-51); MEAN CORPUSCULAR HGB CONC 32.4 g/dL (33.0-36.5); MEAN CORPUSCULAR VOLUME 88.6 FL (78-98); MEAN PLATELET VOLUME 9.1 FL (7.4-10.4); MONOCYTES # (AUTO) 1.9 X10'3 (0-0.9); MONOCYTES % (AUTO) 4.6 % (2-12); NEUTROPHILS # (AUTO) 37.9 X10'3 (1.8-7.7); NEUTROPHILS % (AUTO) 90.8 % (42-75); RED BLOOD COUNT 2.73 X10'6 (4.70-6.10)
[2024-01-16 18:27] LABS: PLATELET COUNT 50 X10'3 (140-440); WHITE BLOOD COUNT 41.8 X10'3 (4.5-11.0)
[2024-01-16 18:34] LABS: ALBUMIN 3.7 G/DL (3.4-5.0); ANION GAP 7 (8-16); BLOOD UREA NITROGEN 35 MG/DL (7-18); BUN/CREATININE RATIO 26.9 (10.0-20.0); CALCIUM CVVH 8.1 MG/DL (8.5-10.1); CHLORIDE 104 MMOL/L (99-107); GLUCOSE 121 MG/DL (70-104); MAGNESIUM 1.6 MG/DL (1.5-2.4); PHOSPHORUS 2.1 MG/DL (2.3-4.5); POTASSIUM 4.3 MMOL/L (3.5-5.1); SODIUM 136 MMOL/L (135-145); eGFR 53 ML/MIN
[2024-01-16] MEDS: hydrocortisone sod succ/PF 100mg/2ml inj. IV SCH (20:30)
[2024-01-17] VITALS (48 sets, daily range): BP systolic 100–128; BP diastolic 41–55; PULSE 66–118; RESP 11–30; TEMP 99.1; O2SAT 95–98
[2024-01-17 01:03] LABS: BASOPHILS % (AUTO) 0.1 % (0-1); HEMOGLOBIN 7.9 g/dl (14.0-17.9); MEAN CORPUSCULAR HGB CONC 32.2 g/dL (33.0-36.5)
[2024-01-17 01:06] LABS: EOSINOPHILS # (AUTO) 0.4 X10'3 (0-0.9); HEMATOCRIT 24.5 % (42.0-52.0); LYMPHOCYTES # (AUTO) 1.8 X10'3 (1.1-4.8); MEAN CORPUSCULAR VOLUME 89.9 FL (78-98); MEAN PLATELET VOLUME 10.8 FL (7.4-10.4); MONOCYTES # (AUTO) 1.8 X10'3 (0-0.9); MONOCYTES % (AUTO) 4.2 % (2-12); NEUTROPHILS # (AUTO) 39.7 X10'3 (1.8-7.7); NEUTROPHILS % (AUTO) 90.7 % (42-75); PLATELET COUNT 54 X10'3 (140-440); RED BLOOD COUNT 2.73 X10'6 (4.70-6.10); RED CELL DISTRIBUTION WIDTH 17.1 % (11.5-14.5)
[2024-01-17 01:08] LABS: ALANINE AMINOTRANSFERASE 129 U/L (12-78); ALBUMIN 3.9 G/DL (3.4-5.0); ALBUMIN/GLOBULIN RATIO 2.2 (1.1-1.5); ALKALINE PHOSPHATASE 83 IU/L (46-116); ANION GAP 7 (8-16); ASPARTATE AMINO TRANSFERASE 71 U/L (10-37); BLOOD UREA NITROGEN 36 MG/DL (7-18); CALCIUM 8.2 MG/DL (8.5-10.1); CHLORIDE 103 MMOL/L (99-107); CREATININE 1.44 MG/DL (0.60-1.10); GLUCOSE 133 MG/DL (70-104); MAGNESIUM 1.7 MG/DL (1.5-2.4); PHOSPHORUS 1.8 MG/DL (2.3-4.5); POTASSIUM 4.3 MMOL/L (3.5-5.1); SODIUM 136 MMOL/L (135-145); TOTAL CARBON DIOXIDE 26.3 MMOL/L (24-32); TOTAL PROTEIN 5.7 G/DL (6.4-8.2); eCRCL 39 ML/MIN; eGFR 47 ML/MIN
[2024-01-17 02:55] LABS: ABG HCO3 23.6 mmol/L (21.0-28.0); ABG OXYGEN SATURATION 96.8 % (94.0-98.0); ABG PCO2 (T) 44.2 mmHg (35.0-48.0); ABG PH (T) 7.346 (7.350-7.450); ABG PO2 (T) 89.2 mmHg (83.0-108.0); FCOHb 1.1 % (0.5-1.5); FHHb 3.2 % (0.0-5.0); FMetHb 0.3 % (0.0-1.5); FO2Hb 95.4 % (94.0-98.0); MODE vent-ac prvc; PATIENT TEMPERATURE 37.1; PEEP 5 cm H2O; RESPIRATORY RATE 28 b/min; TIDAL VOLUME 450 mL; TOTAL HEMOGLOBIN 8.4 G/dl (13.5-17.5)
[2024-01-17 03:14] LABS: WHITE BLOOD COUNT 43.8 X10'3 (4.5-11.0)
[2024-01-17 05:19] LABS: ANISOCYTOSIS 1+; NUCLEATED RED BLOOD CELLS 14 /100WBC (0-0); PLATELET ESTIMATE DECREASED; TOTAL CELLS COUNTED 100
[2024-01-17 05:50] LABS: BASOPHILS % (AUTO) 0.1 % (0-1); EOSINOPHILS # (AUTO) 0.1 X10'3 (0-0.9); EOSINOPHILS % (AUTO) 0.3 % (0-6); HEMOGLOBIN 7.8 g/dl (14.0-17.9); MEAN CORPUSCULAR HEMOGLOBIN 28.3 PG (27.0-31.0)
[2024-01-17 05:56] LABS: HEMATOCRIT 24.7 % (42.0-52.0); LYMPHOCYTES # (AUTO) 1.6 X10'3 (1.1-4.8); LYMPHOCYTES % (AUTO) 3.9 % (21-51); MEAN CORPUSCULAR HGB CONC 31.7 g/dL (33.0-36.5); MEAN CORPUSCULAR VOLUME 89.2 FL (78-98); MEAN PLATELET VOLUME 10.6 FL (7.4-10.4); MONOCYTES # (AUTO) 1.8 X10'3 (0-0.9); MONOCYTES % (AUTO) 4.4 % (2-12); NEUTROPHILS # (AUTO) 37.5 X10'3 (1.8-7.7); NEUTROPHILS % (AUTO) 91.3 % (42-75); PLATELET COUNT 53 X10'3 (140-440); RED BLOOD COUNT 2.77 X10'6 (4.70-6.10); RED CELL DISTRIBUTION WIDTH 17.8 % (11.5-14.5)
[2024-01-17 06:05] LABS: WHITE BLOOD COUNT 41.1 X10'3 (4.5-11.0)
[2024-01-17 07:14] LABS: ALBUMIN 3.8 G/DL (3.4-5.0); ANION GAP 7 (8-16); BLOOD UREA NITROGEN 37 MG/DL (7-18); BUN/CREATININE RATIO 26.1 (10.0-20.0); CALCIUM CVVH 7.9 MG/DL (8.5-10.1); CHLORIDE 103 MMOL/L (99-107); CREATININE 1.42 MG/DL (0.60-1.10); GLUCOSE 145 MG/DL (70-104); MAGNESIUM 1.7 MG/DL (1.5-2.4); POTASSIUM 4.4 MMOL/L (3.5-5.1); SODIUM 135 MMOL/L (135-145); TOTAL CARBON DIOXIDE 25.4 MMOL/L (24-32); eGFR 48 ML/MIN
[2024-01-17] MEDS: epiNEPHrine 0.1mg/ml 10ml syringe ONE (07:17)
[2024-01-17] MEDS ORDERED: diatr meglu/diatrizoate 30ml oral sol.-(3 dose) bottle ONE (08:00)
[2024-01-17 12:04] LABS: BASOPHILS % (AUTO) 0.1 % (0-1); EOSINOPHILS # (AUTO) 0.1 X10'3 (0-0.9); EOSINOPHILS % (AUTO) 0.3 % (0-6); HEMOGLOBIN 7.6 g/dl (14.0-17.9); LYMPHOCYTES # (AUTO) 1.4 X10'3 (1.1-4.8); LYMPHOCYTES % (AUTO) 3.6 % (21-51); MEAN CORPUSCULAR HEMOGLOBIN 28.9 PG (27.0-31.0); MEAN CORPUSCULAR HGB CONC 31.7 g/dL (33.0-36.5); MEAN CORPUSCULAR VOLUME 91.1 FL (78-98); MEAN PLATELET VOLUME 11.1 FL (7.4-10.4); MONOCYTES # (AUTO) 1.7 X10'3 (0-0.9); MONOCYTES % (AUTO) 4.5 % (2-12); NEUTROPHILS # (AUTO) 34.6 X10'3 (1.8-7.7); NEUTROPHILS % (AUTO) 91.5 % (42-75); PLATELET COUNT 54 X10'3 (140-440); RED BLOOD COUNT 2.64 X10'6 (4.70-6.10); RED CELL DISTRIBUTION WIDTH 18.1 % (11.5-14.5)
[2024-01-17 12:07] LABS: WHITE BLOOD COUNT 37.8 X10'3 (4.5-11.0)
[2024-01-17 12:12] LABS: ALBUMIN 3.6 G/DL (3.4-5.0); ANION GAP 8 (8-16); BLOOD UREA NITROGEN 41 MG/DL (7-18); BUN/CREATININE RATIO 25.2 (10.0-20.0); CALCIUM CVVH 7.8 MG/DL (8.5-10.1); CHLORIDE 103 MMOL/L (99-107); CREATININE 1.63 MG/DL (0.60-1.10); GLUCOSE 156 MG/DL (70-104); MAGNESIUM 1.6 MG/DL (1.5-2.4); PHOSPHORUS 2.7 MG/DL (2.3-4.5); POTASSIUM 3.9 MMOL/L (3.5-5.1); SODIUM 135 MMOL/L (135-145); TOTAL CARBON DIOXIDE 24.5 MMOL/L (24-32); eGFR 41 ML/MIN
[2024-01-17] MEDS: metroNIDAZOLE-Flagyl 500mg/NS 100 ML IV SCH (12:50)
[2024-01-17] MEDS: pantoprazole 40 MG vial IV SCH (12:50)
[2024-01-17] MEDS: VANCOMYCIN 125 MG/5 ML oral SOLN.RECON 5mL UD syringe (FIRVANQ) PO SCH (14:07)
[2024-01-17 18:30] LABS: BASOPHILS # (AUTO) 0.1 X10'3 (0-0.2); BASOPHILS % (AUTO) 0.2 % (0-1); EOSINOPHILS # (AUTO) 0.1 X10'3 (0-0.9); MEAN CORPUSCULAR HEMOGLOBIN 28.5 PG (27.0-31.0)
[2024-01-17 18:33] LABS: EOSINOPHILS % (AUTO) 0.2 % (0-6); HEMATOCRIT 22.6 % (42.0-52.0); HEMOGLOBIN 7.1 g/dl (14.0-17.9); LYMPHOCYTES % (AUTO) 2.7 % (21-51); MEAN CORPUSCULAR HGB CONC 31.6 g/dL (33.0-36.5); MEAN CORPUSCULAR VOLUME 90.4 FL (78-98); MEAN PLATELET VOLUME 10.6 FL (7.4-10.4); MONOCYTES # (AUTO) 2.4 X10'3 (0-0.9); MONOCYTES % (AUTO) 6.3 % (2-12); NEUTROPHILS # (AUTO) 34.3 X10'3 (1.8-7.7); NEUTROPHILS % (AUTO) 90.6 % (42-75); PLATELET COUNT 57 X10'3 (140-440); RED CELL DISTRIBUTION WIDTH 18.1 % (11.5-14.5)
[2024-01-17 18:34] LABS: WHITE BLOOD COUNT 37.8 X10'3 (4.5-11.0)
[2024-01-17 18:37] LABS: ALBUMIN 3.7 G/DL (3.4-5.0); ANION GAP 6 (8-16); BLOOD UREA NITROGEN 36 MG/DL (7-18); BUN/CREATININE RATIO 23.5 (10.0-20.0); CALCIUM CVVH 7.7 MG/DL (8.5-10.1); CHLORIDE 103 MMOL/L (99-107); CREATININE 1.53 MG/DL (0.60-1.10); GLUCOSE 162 MG/DL (70-104); MAGNESIUM 1.6 MG/DL (1.5-2.4); PHOSPHORUS 2.7 MG/DL (2.3-4.5); POTASSIUM 5.2 MMOL/L (3.5-5.1); SODIUM 134 MMOL/L (135-145); TOTAL CARBON DIOXIDE 24.7 MMOL/L (24-32); eGFR 44 ML/MIN
[2024-01-17 18:57] LABS: ANISOCYTOSIS 2+; NUCLEATED RED BLOOD CELLS 15 /100WBC (0-0); PLATELET ESTIMATE DECREASED; TOTAL CELLS COUNTED 100
[2024-01-17 18:58] LABS: GIANT PLATELET FEW; HYPOCHROMASIA 2+; POLYCHROMASIA FEW; SCHISTOCYTES FEW; TARGET CELLS FEW
[2024-01-17] MEDS: magnesium sulf-water 4G/100mL 100 ML IV PRN (19:02)
[2024-01-18] VITALS (49 sets, daily range): BP systolic 101–128; BP diastolic 43–56; PULSE 68–81; RESP 26–30; TEMP 99.1–99.9; O2SAT 93–98
[2024-01-18 00:43] LABS: BASOPHILS % (AUTO) 0.1 % (0-1); EOSINOPHILS % (AUTO) 0.1 % (0-6)
[2024-01-18 00:44] LABS: HEMATOCRIT 23.2 % (42.0-52.0); HEMOGLOBIN 7.3 g/dl (14.0-17.9); LYMPHOCYTES # (AUTO) 0.9 X10'3 (1.1-4.8); LYMPHOCYTES % (AUTO) 2.4 % (21-51); MEAN CORPUSCULAR HEMOGLOBIN 28.5 PG (27.0-31.0); MEAN CORPUSCULAR HGB CONC 31.7 g/dL (33.0-36.5); MEAN CORPUSCULAR VOLUME 89.9 FL (78-98); MEAN PLATELET VOLUME 10.3 FL (7.4-10.4); MONOCYTES # (AUTO) 2.4 X10'3 (0-0.9); MONOCYTES % (AUTO) 6.3 % (2-12); NEUTROPHILS # (AUTO) 34.2 X10'3 (1.8-7.7); NEUTROPHILS % (AUTO) 91.1 % (42-75); PLATELET COUNT 67 X10'3 (140-440); RED BLOOD COUNT 2.58 X10'6 (4.70-6.10); RED CELL DISTRIBUTION WIDTH 18.2 % (11.5-14.5)
[2024-01-18 00:50] LABS: ALANINE AMINOTRANSFERASE 84 U/L (12-78); ALBUMIN 3.8 G/DL (3.4-5.0); ALBUMIN/GLOBULIN RATIO 2.1 (1.1-1.5); ALKALINE PHOSPHATASE 77 IU/L (46-116); ANION GAP 5 (8-16); ASPARTATE AMINO TRANSFERASE 42 U/L (10-37); BILIRUBIN,TOTAL 1.1 MG/DL (0.1-1.0); BLOOD UREA NITROGEN 36 MG/DL (7-18); BUN/CREATININE RATIO 23.8 (10.0-20.0); CALCIUM 7.8 MG/DL (8.5-10.1); CHLORIDE 103 MMOL/L (99-107); CREATININE 1.51 MG/DL (0.60-1.10); GLUCOSE 109 MG/DL (70-104); MAGNESIUM 2.4 MG/DL (1.5-2.4); PHOSPHORUS 1.9 MG/DL (2.3-4.5); POTASSIUM 4.6 MMOL/L (3.5-5.1); SODIUM 135 MMOL/L (135-145); TOTAL CARBON DIOXIDE 26.8 MMOL/L (24-32); TOTAL PROTEIN 5.6 G/DL (6.4-8.2); eCRCL 37 ML/MIN; eGFR 45 ML/MIN
[2024-01-18 00:51] LABS: WHITE BLOOD COUNT 37.6 X10'3 (4.5-11.0)
[2024-01-18 02:46] LABS: ABG BASE EXCESS -1.1 mmol/L (-2.0-3.0); ABG HCO3 24.2 mmol/L (21.0-28.0); ABG OXYGEN SATURATION 97.9 % (94.0-98.0); ABG PCO2 (T) 44.4 mmHg (35.0-48.0); ABG PH (T) 7.357 (7.350-7.450); FCOHb 1.1 % (0.5-1.5); FHHb 2.1 % (0.0-5.0); FMetHb 0.3 % (0.0-1.5); FO2Hb 96.5 % (94.0-98.0); MODE vent-ac prvc; PATIENT TEMPERATURE 37.4; PEEP 5 cm H2O; RESPIRATORY RATE 28 b/min; TIDAL VOLUME 450 mL; TOTAL HEMOGLOBIN 7.7 G/dl (13.5-17.5)
[2024-01-18 06:23] LABS: BASOPHILS % (AUTO) 0.1 % (0-1); HEMATOCRIT 22.3 % (42.0-52.0); HEMOGLOBIN 7.1 g/dl (14.0-17.9); LYMPHOCYTES # (AUTO) 0.9 X10'3 (1.1-4.8); MEAN CORPUSCULAR VOLUME 90.4 FL (78-98); MONOCYTES # (AUTO) 1.4 X10'3 (0-0.9); NEUTROPHILS # (AUTO) 29.3 X10'3 (1.8-7.7); NEUTROPHILS % (AUTO) 92.5 % (42-75); PLATELET COUNT 66 X10'3 (140-440); RED BLOOD COUNT 2.46 X10'6 (4.70-6.10)
[2024-01-18 06:24] LABS: EOSINOPHILS % (AUTO) 0.1 % (0-6); LYMPHOCYTES % (AUTO) 2.9 % (21-51); MEAN CORPUSCULAR HGB CONC 32.1 g/dL (33.0-36.5); MEAN PLATELET VOLUME 11.2 FL (7.4-10.4); MONOCYTES % (AUTO) 4.4 % (2-12); RED CELL DISTRIBUTION WIDTH 17.8 % (11.5-14.5)
[2024-01-18 06:28] LABS: WHITE BLOOD COUNT 31.7 X10'3 (4.5-11.0)
[2024-01-18 06:30] LABS: ANION GAP 8 (8-16); BLOOD UREA NITROGEN 35 MG/DL (7-18); BUN/CREATININE RATIO 24.1 (10.0-20.0); CALCIUM CVVH 8.3 MG/DL (8.5-10.1); CHLORIDE 102 MMOL/L (99-107); CREATININE 1.45 MG/DL (0.60-1.10); GLUCOSE 152 MG/DL (70-104); MAGNESIUM 2.3 MG/DL (1.5-2.4); PHOSPHORUS 2.5 MG/DL (2.3-4.5); POTASSIUM 4.2 MMOL/L (3.5-5.1); SODIUM 134 MMOL/L (135-145); TOTAL CARBON DIOXIDE 23.8 MMOL/L (24-32); eGFR 47 ML/MIN
[2024-01-18 07:26] LABS: NUCLEATED RED BLOOD CELLS 7 /100WBC (0-0); TOTAL CELLS COUNTED 100
[2024-01-18 07:27] LABS: PLATELET ESTIMATE DECREASED
[2024-01-18 07:28] LABS: ANISOCYTOSIS 1+
[2024-01-18 07:29] LABS: LARGE PLATELETS MODERATE
[2024-01-18 07:30] LABS: SCHISTOCYTES FEW
[2024-01-18] MEDS ORDERED: VANCOMYCIN LEVEL IV ONE (08:30)
[2024-01-18] MEDS ORDERED: VANCOMYCIN 125 MG/5 ML oral SOLN.RECON 5mL UD syringe (FIRVANQ) PO SCH (09:21)
[2024-01-18 12:12] LABS: EOSINOPHILS % (AUTO) 0.1 % (0-6); NEUTROPHILS % (AUTO) 91.5 % (42-75)
[2024-01-18 12:14] LABS: BASOPHILS # (AUTO) 0.1 X10'3 (0-0.2); BASOPHILS % (AUTO) 0.2 % (0-1); HEMATOCRIT 22.2 % (42.0-52.0); HEMOGLOBIN 7.2 g/dl (14.0-17.9); LYMPHOCYTES # (AUTO) 1.7 X10'3 (1.1-4.8); LYMPHOCYTES % (AUTO) 5.1 % (21-51); MEAN CORPUSCULAR HEMOGLOBIN 28.8 PG (27.0-31.0); MEAN CORPUSCULAR HGB CONC 32.2 g/dL (33.0-36.5); MEAN CORPUSCULAR VOLUME 89.6 FL (78-98); MONOCYTES % (AUTO) 3.1 % (2-12); NEUTROPHILS # (AUTO) 30.2 X10'3 (1.8-7.7); PLATELET COUNT 59 X10'3 (140-440); RED BLOOD COUNT 2.48 X10'6 (4.70-6.10)
[2024-01-18 12:25] LABS: ANION GAP 10 (8-16); BLOOD UREA NITROGEN 36 MG/DL (7-18); BUN/CREATININE RATIO 23.5 (10.0-20.0); CALCIUM CVVH 8.3 MG/DL (8.5-10.1); CHLORIDE 102 MMOL/L (99-107); CREATININE 1.53 MG/DL (0.60-1.10); GLUCOSE 178 MG/DL (70-104); PHOSPHORUS 2.1 MG/DL (2.3-4.5); SODIUM 135 MMOL/L (135-145); TOTAL CARBON DIOXIDE 22.8 MMOL/L (24-32); eGFR 44 ML/MIN
[2024-01-18] MEDS: VANCOMYCIN 125 MG/5 ML oral SOLN.RECON 5mL UD syringe (FIRVANQ) OGT SCH (13:22)
[2024-01-18 14:31] LABS: ABG OXYGEN SATURATION 97.1 % (94.0-98.0); ABG PCO2 (T) 34.7 mmHg (35.0-48.0); ABG PO2 (T) 93.6 mmHg (83.0-108.0); FCOHb 1.2 % (0.5-1.5); FHHb 2.9 % (0.0-5.0); FMetHb 0.3 % (0.0-1.5); FO2Hb 95.6 % (94.0-98.0); MODE VENT - AC; PATIENT TEMPERATURE 37.1; PEEP 5 cm H2O; TOTAL HEMOGLOBIN 7.6 G/dl (13.5-17.5)
[2024-01-18 18:22] LABS: BASOPHILS % (AUTO) 0.1 % (0-1); EOSINOPHILS % (AUTO) 0.1 % (0-6); MEAN CORPUSCULAR HGB CONC 31.7 g/dL (33.0-36.5)
[2024-01-18 18:23] LABS: LYMPHOCYTES # (AUTO) 1.2 X10'3 (1.1-4.8); MEAN CORPUSCULAR HEMOGLOBIN 28.3 PG (27.0-31.0); MEAN CORPUSCULAR VOLUME 89.2 FL (78-98); MEAN PLATELET VOLUME 10.3 FL (7.4-10.4); MONOCYTES # (AUTO) 1.5 X10'3 (0-0.9); NEUTROPHILS # (AUTO) 28.1 X10'3 (1.8-7.7); NEUTROPHILS % (AUTO) 90.8 % (42-75); PLATELET COUNT 55 X10'3 (140-440); RED BLOOD COUNT 2.41 X10'6 (4.70-6.10); RED CELL DISTRIBUTION WIDTH 17.9 % (11.5-14.5)
[2024-01-18 18:26] LABS: HEMATOCRIT 21.5 % (42.0-52.0); HEMOGLOBIN 6.8 g/dl (14.0-17.9)
[2024-01-18 18:41] LABS: ALBUMIN 3.7 G/DL (3.4-5.0); ANION GAP 9 (8-16); BLOOD UREA NITROGEN 38 MG/DL (7-18); BUN/CREATININE RATIO 24.2 (10.0-20.0); CALCIUM CVVH 8.1 MG/DL (8.5-10.1); CHLORIDE 102 MMOL/L (99-107); CREATININE 1.57 MG/DL (0.60-1.10); GLUCOSE 263 MG/DL (70-104); MAGNESIUM 1.9 MG/DL (1.5-2.4); PHOSPHORUS 2.8 MG/DL (2.3-4.5); POTASSIUM 4.4 MMOL/L (3.5-5.1); SODIUM 134 MMOL/L (135-145); TOTAL CARBON DIOXIDE 23.1 MMOL/L (24-32); eGFR 43 ML/MIN
[2024-01-18] MEDS ORDERED: NORepinephrine 8mg/ 250ml NS 250 ML IV SCH (18:50)
[2024-01-18] MEDS: NORepinephrine 32 MG in normal saline 250ml IV soln 218 ML IV SCH (19:49)
[2024-01-19] VITALS (45 sets, daily range): BP systolic 93–134; BP diastolic 42–61; PULSE 68–134; RESP 16–34; TEMP 98.7; O2SAT 92–98
[2024-01-19 00:37] LABS: BASOPHILS # (AUTO) 0.1 X10'3 (0-0.2); BASOPHILS % (AUTO) 0.4 % (0-1); EOSINOPHILS # (AUTO) 0.1 X10'3 (0-0.9); EOSINOPHILS % (AUTO) 0.2 % (0-6); HEMATOCRIT 26.4 % (42.0-52.0); HEMOGLOBIN 8.7 g/dl (14.0-17.9); LYMPHOCYTES # (AUTO) 1.2 X10'3 (1.1-4.8); LYMPHOCYTES % (AUTO) 3.7 % (21-51); MEAN CORPUSCULAR HEMOGLOBIN 29.7 PG (27.0-31.0); MEAN CORPUSCULAR HGB CONC 32.8 g/dL (33.0-36.5); MEAN CORPUSCULAR VOLUME 90.5 FL (78-98); MONOCYTES # (AUTO) 2.4 X10'3 (0-0.9); MONOCYTES % (AUTO) 7.6 % (2-12); NEUTROPHILS # (AUTO) 27.7 X10'3 (1.8-7.7); NEUTROPHILS % (AUTO) 88.1 % (42-75); PLATELET COUNT 51 X10'3 (140-440); RED BLOOD COUNT 2.92 X10'6 (4.70-6.10); RED CELL DISTRIBUTION WIDTH 17.8 % (11.5-14.5)
[2024-01-19 00:39] LABS: WHITE BLOOD COUNT 31.4 X10'3 (4.5-11.0)
[2024-01-19 01:03] LABS: ALANINE AMINOTRANSFERASE 53 U/L (12-78); ALBUMIN 4.1 G/DL (3.4-5.0); ALBUMIN/GLOBULIN RATIO 2.6 (1.1-1.5); ALKALINE PHOSPHATASE 66 IU/L (46-116); ANION GAP 11 (8-16); ASPARTATE AMINO TRANSFERASE 23 U/L (10-37); BILIRUBIN,TOTAL 1.2 MG/DL (0.1-1.0); BLOOD UREA NITROGEN 41 MG/DL (7-18); BUN/CREATININE RATIO 25.3 (10.0-20.0); CALCIUM 7.8 MG/DL (8.5-10.1); CHLORIDE 102 MMOL/L (99-107); CREATININE 1.62 MG/DL (0.60-1.10); GLUCOSE 102 MG/DL (70-104); MAGNESIUM 1.8 MG/DL (1.5-2.4); PHOSPHORUS 3.4 MG/DL (2.3-4.5); SODIUM 136 MMOL/L (135-145); TOTAL CARBON DIOXIDE 23.2 MMOL/L (24-32); TOTAL PROTEIN 5.7 G/DL (6.4-8.2); eCRCL 35 ML/MIN; eGFR 41 ML/MIN
[2024-01-19 03:48] LABS: ABG BASE EXCESS -2.6 mmol/L (-2.0-3.0); ABG HCO3 22.1 mmol/L (21.0-28.0); ABG PCO2 (T) 38.6 mmHg (35.0-48.0); ABG PH (T) 7.378 (7.350-7.450); ABG PO2 (T) 84.6 mmHg (83.0-108.0); FCOHb 0.9 % (0.5-1.5); FMetHb 0.3 % (0.0-1.5); FO2Hb 94.8 % (94.0-98.0); MODE PRVC; PATIENT TEMPERATURE 37.4; PEEP 5 cm H2O; RESPIRATORY RATE 28 b/min; TIDAL VOLUME 450 mL; TOTAL HEMOGLOBIN 8.8 G/dl (13.5-17.5)
[2024-01-19 06:09] LABS: BASOPHILS # (AUTO) 0.1 X10'3 (0-0.2); EOSINOPHILS % (AUTO) 0.1 % (0-6); HEMOGLOBIN 8.2 g/dl (14.0-17.9)
[2024-01-19 06:10] LABS: BASOPHILS % (AUTO) 0.4 % (0-1); HEMATOCRIT 25.3 % (42.0-52.0); LYMPHOCYTES # (AUTO) 1.1 X10'3 (1.1-4.8); LYMPHOCYTES % (AUTO) 3.5 % (21-51); MEAN CORPUSCULAR HEMOGLOBIN 29.6 PG (27.0-31.0); MEAN CORPUSCULAR HGB CONC 32.4 g/dL (33.0-36.5); MEAN CORPUSCULAR VOLUME 91.3 FL (78-98); MONOCYTES # (AUTO) 2.2 X10'3 (0-0.9); NEUTROPHILS # (AUTO) 27.8 X10'3 (1.8-7.7); PLATELET COUNT 53 X10'3 (140-440); RED BLOOD COUNT 2.77 X10'6 (4.70-6.10); RED CELL DISTRIBUTION WIDTH 17.5 % (11.5-14.5)
[2024-01-19 06:24] LABS: WHITE BLOOD COUNT 31.1 X10'3 (4.5-11.0)
[2024-01-19 06:36] LABS: ALBUMIN 4.1 G/DL (3.4-5.0); ANION GAP 11 (8-16); BLOOD UREA NITROGEN 39 MG/DL (7-18); BUN/CREATININE RATIO 25.7 (10.0-20.0); CALCIUM CVVH 8.2 MG/DL (8.5-10.1); CHLORIDE 103 MMOL/L (99-107); CREATININE 1.52 MG/DL (0.60-1.10); GLUCOSE 165 MG/DL (70-104); MAGNESIUM 1.8 MG/DL (1.5-2.4); PHOSPHORUS 2.9 MG/DL (2.3-4.5); POTASSIUM 4.1 MMOL/L (3.5-5.1); SODIUM 136 MMOL/L (135-145); TOTAL CARBON DIOXIDE 22.3 MMOL/L (24-32); eGFR 44 ML/MIN
[2024-01-19] MEDS: amiodarone 150mg/dext, iso-os 100 ML IV ONE (07:58)
[2024-01-19 08:57] LABS: ANISOCYTOSIS 1+; NUCLEATED RED BLOOD CELLS 3 /100WBC (0-0); PLATELET ESTIMATE DECREASED; TOTAL CELLS COUNTED 100
[2024-01-19 08:58] LABS: BURR CELLS FEW; POLYCHROMASIA 1+; TARGET CELLS 1+
[2024-01-19 12:56] LABS: BASOPHILS % (AUTO) 0 % (0-1); EOSINOPHILS % (AUTO) 0.1 % (0-6); HEMATOCRIT 26.1 % (42.0-52.0); HEMOGLOBIN 8.4 g/dl (14.0-17.9); LYMPHOCYTES # (AUTO) 0.6 X10'3 (1.1-4.8); MEAN CORPUSCULAR HEMOGLOBIN 29.2 PG (27.0-31.0); MEAN CORPUSCULAR HGB CONC 32.3 g/dL (33.0-36.5); MEAN CORPUSCULAR VOLUME 90.4 FL (78-98); MEAN PLATELET VOLUME 10.1 FL (7.4-10.4); MONOCYTES # (AUTO) 1.8 X10'3 (0-0.9); MONOCYTES % (AUTO) 5.7 % (2-12); NEUTROPHILS # (AUTO) 29.2 X10'3 (1.8-7.7); NEUTROPHILS % (AUTO) 92.2 % (42-75); RED BLOOD COUNT 2.89 X10'6 (4.70-6.10); RED CELL DISTRIBUTION WIDTH 17.3 % (11.5-14.5)
[2024-01-19 12:57] LABS: WHITE BLOOD COUNT 31.6 X10'3 (4.5-11.0)
[2024-01-19 12:59] LABS: PLATELET COUNT 40 X10'3 (140-440)
[2024-01-19 13:01] LABS: ALBUMIN 3.9 G/DL (3.4-5.0); ANION GAP 10 (8-16); BLOOD UREA NITROGEN 41 MG/DL (7-18); BUN/CREATININE RATIO 25.6 (10.0-20.0); CALCIUM CVVH 7.9 MG/DL (8.5-10.1); CHLORIDE 102 MMOL/L (99-107); GLUCOSE 148 MG/DL (70-104); MAGNESIUM 1.8 MG/DL (1.5-2.4); PHOSPHORUS 2.7 MG/DL (2.3-4.5); SODIUM 136 MMOL/L (135-145); TOTAL CARBON DIOXIDE 24.4 MMOL/L (24-32); eGFR 42 ML/MIN
[2024-01-19 18:59] LABS: HEMATOCRIT 25.2 % (42.0-52.0); HEMOGLOBIN 8.2 g/dl (14.0-17.9); MEAN CORPUSCULAR HGB CONC 32.6 g/dL (33.0-36.5); RED BLOOD COUNT 2.79 X10'6 (4.70-6.10)
[2024-01-19 19:01] LABS: BASOPHILS % (AUTO) 0 % (0-1); EOSINOPHILS % (AUTO) 0.1 % (0-6); LYMPHOCYTES # (AUTO) 0.7 X10'3 (1.1-4.8); LYMPHOCYTES % (AUTO) 2.3 % (21-51); MEAN CORPUSCULAR HEMOGLOBIN 29.5 PG (27.0-31.0); MEAN CORPUSCULAR VOLUME 90.5 FL (78-98); MEAN PLATELET VOLUME 10.7 FL (7.4-10.4); MONOCYTES # (AUTO) 1.5 X10'3 (0-0.9); MONOCYTES % (AUTO) 5.3 % (2-12); NEUTROPHILS # (AUTO) 26.1 X10'3 (1.8-7.7); NEUTROPHILS % (AUTO) 92.3 % (42-75); RED CELL DISTRIBUTION WIDTH 17.5 % (11.5-14.5)
[2024-01-19 19:03] LABS: ANION GAP 10 (8-16); BLOOD UREA NITROGEN 42 MG/DL (7-18); BUN/CREATININE RATIO 26.6 (10.0-20.0); CHLORIDE 101 MMOL/L (99-107); CREATININE 1.58 MG/DL (0.60-1.10); GLUCOSE 149 MG/DL (70-104); MAGNESIUM 1.8 MG/DL (1.5-2.4); PHOSPHORUS 2.9 MG/DL (2.3-4.5); POTASSIUM 4.2 MMOL/L (3.5-5.1); SODIUM 136 MMOL/L (135-145); TOTAL CARBON DIOXIDE 25.4 MMOL/L (24-32); eGFR 42 ML/MIN
[2024-01-19 19:06] LABS: PLATELET COUNT 42 X10'3 (140-440); WHITE BLOOD COUNT 28.3 X10'3 (4.5-11.0)
[2024-01-20] VITALS (46 sets, daily range): BP systolic 94–128; BP diastolic 40–55; PULSE 64–72; RESP 11–31; TEMP 97.7; O2SAT 93–99
[2024-01-20 00:37] LABS: EOSINOPHILS % (AUTO) 0.1 % (0-6); HEMATOCRIT 23.5 % (42.0-52.0); HEMOGLOBIN 7.8 g/dl (14.0-17.9); MEAN CORPUSCULAR HGB CONC 33.2 g/dL (33.0-36.5); NEUTROPHILS % (AUTO) 91.1 % (42-75)
[2024-01-20 00:38] LABS: BASOPHILS # (AUTO) 0.1 X10'3 (0-0.2); BASOPHILS % (AUTO) 0.2 % (0-1); LYMPHOCYTES # (AUTO) 0.9 X10'3 (1.1-4.8); LYMPHOCYTES % (AUTO) 3.4 % (21-51); MEAN CORPUSCULAR HEMOGLOBIN 29.7 PG (27.0-31.0); MEAN CORPUSCULAR VOLUME 89.3 FL (78-98); MEAN PLATELET VOLUME 10.7 FL (7.4-10.4); MONOCYTES # (AUTO) 1.3 X10'3 (0-0.9); MONOCYTES % (AUTO) 5.2 % (2-12); NEUTROPHILS # (AUTO) 23.5 X10'3 (1.8-7.7); RED BLOOD COUNT 2.63 X10'6 (4.70-6.10); RED CELL DISTRIBUTION WIDTH 17.4 % (11.5-14.5)
[2024-01-20 00:56] LABS: PLATELET COUNT 38 X10'3 (140-440); WHITE BLOOD COUNT 25.8 X10'3 (4.5-11.0)
[2024-01-20 02:24] LABS: ALANINE AMINOTRANSFERASE 36 U/L (12-78); ALBUMIN 4.1 G/DL (3.4-5.0); ALBUMIN/GLOBULIN RATIO 2.7 (1.1-1.5); ALKALINE PHOSPHATASE 57 IU/L (46-116); ANION GAP 9 (8-16); ASPARTATE AMINO TRANSFERASE 13 U/L (10-37); BILIRUBIN,TOTAL 1.2 MG/DL (0.1-1.0); BLOOD UREA NITROGEN 40 MG/DL (7-18); BUN/CREATININE RATIO 27.6 (10.0-20.0); CALCIUM 8.2 MG/DL (8.5-10.1); CHLORIDE 102 MMOL/L (99-107); CREATININE 1.45 MG/DL (0.60-1.10); GLUCOSE 135 MG/DL (70-104); MAGNESIUM 1.7 MG/DL (1.5-2.4); PHOSPHORUS 2.6 MG/DL (2.3-4.5); POTASSIUM 4.1 MMOL/L (3.5-5.1); SODIUM 135 MMOL/L (135-145); TOTAL CARBON DIOXIDE 23.9 MMOL/L (24-32); TOTAL PROTEIN 5.6 G/DL (6.4-8.2); eCRCL 39 ML/MIN; eGFR 47 ML/MIN
[2024-01-20 03:55] LABS: ABG BASE EXCESS -3.9 mmol/L (-2.0-3.0); ABG HCO3 21.1 mmol/L (21.0-28.0); ABG OXYGEN SATURATION 94.8 % (94.0-98.0); ABG PH (T) 7.389 (7.350-7.450); ABG PO2 (T) 69.7 mmHg (83.0-108.0); ALLEN'S TEST Modified; FCOHb 0.8 % (0.5-1.5); FHHb 5.1 % (0.0-5.0); FMetHb 0.3 % (0.0-1.5); FO2Hb 93.8 % (94.0-98.0); MODE CMV PRVC IT 0.8; PATIENT TEMPERATURE 35.2; PEEP 5 cm H2O; RESPIRATORY RATE 28 b/min; TIDAL VOLUME 450 mL; TOTAL HEMOGLOBIN 8.3 G/dl (13.5-17.5)
[2024-01-20 06:18] LABS: ALBUMIN 4.2 G/DL (3.4-5.0); ANION GAP 6 (8-16); BLOOD UREA NITROGEN 40 MG/DL (7-18); BUN/CREATININE RATIO 27.6 (10.0-20.0); CALCIUM CVVH 8.2 MG/DL (8.5-10.1); CHLORIDE 102 MMOL/L (99-107); CREATININE 1.45 MG/DL (0.60-1.10); GLUCOSE 154 MG/DL (70-104); LYMPHOCYTES # (AUTO) 0.5 X10'3 (1.1-4.8); MAGNESIUM 2.4 MG/DL (1.5-2.4); PHOSPHORUS 2.2 MG/DL (2.3-4.5); SODIUM 135 MMOL/L (135-145); TOTAL CARBON DIOXIDE 26.7 MMOL/L (24-32); eGFR 47 ML/MIN
[2024-01-20 06:20] LABS: BASOPHILS % (AUTO) 0 % (0-1); EOSINOPHILS % (AUTO) 0 % (0-6); HEMATOCRIT 23.4 % (42.0-52.0); HEMOGLOBIN 7.8 g/dl (14.0-17.9); MEAN CORPUSCULAR HEMOGLOBIN 29.9 PG (27.0-31.0); MEAN CORPUSCULAR HGB CONC 33.1 g/dL (33.0-36.5); MEAN CORPUSCULAR VOLUME 90.1 FL (78-98); MONOCYTES # (AUTO) 1.4 X10'3 (0-0.9); MONOCYTES % (AUTO) 5.6 % (2-12); NEUTROPHILS # (AUTO) 23.5 X10'3 (1.8-7.7); NEUTROPHILS % (AUTO) 92.4 % (42-75); RED CELL DISTRIBUTION WIDTH 17.2 % (11.5-14.5)
[2024-01-20 06:28] LABS: PLATELET COUNT 37 X10'3 (140-440); WHITE BLOOD COUNT 25.5 X10'3 (4.5-11.0)
[2024-01-20 06:39] LABS: ANISOCYTOSIS 1+; NUCLEATED RED BLOOD CELLS 5 /100WBC (0-0); PLATELET ESTIMATE DECREASED; POLYCHROMASIA 1+; TARGET CELLS 1+; TOTAL CELLS COUNTED 100
[2024-01-20 06:40] LABS: BURR CELLS 1+
[2024-01-20 06:41] LABS: ELLIPTOCYTES FEW; LARGE PLATELETS FEW
[2024-01-20] MEDS: hydrocortisone sod succ/PF 100mg/2ml inj. IV SCH (08:52)
[2024-01-20 09:43] LABS: C DIFF ANTIGEN POSITIVE (NEGATIVE); C DIFF SPECIMEN=DIARRHEA? ACCEPTABLE; C DIFFICILE TOXINS A&B POSITIVE (Neg)
[2024-01-20 12:33] LABS: EOSINOPHILS % (AUTO) 0.1 % (0-6); HEMATOCRIT 22.7 % (42.0-52.0); HEMOGLOBIN 7.5 g/dl (14.0-17.9); LYMPHOCYTES # (AUTO) 0.5 X10'3 (1.1-4.8); MEAN CORPUSCULAR HEMOGLOBIN 29.7 PG (27.0-31.0); MEAN CORPUSCULAR HGB CONC 32.9 g/dL (33.0-36.5); MONOCYTES # (AUTO) 1.4 X10'3 (0-0.9)
[2024-01-20 12:35] LABS: BASOPHILS % (AUTO) 0.1 % (0-1); LYMPHOCYTES % (AUTO) 2.2 % (21-51); MEAN CORPUSCULAR VOLUME 90.1 FL (78-98); MEAN PLATELET VOLUME 10.5 FL (7.4-10.4); MONOCYTES % (AUTO) 5.7 % (2-12); NEUTROPHILS % (AUTO) 91.9 % (42-75); RED BLOOD COUNT 2.52 X10'6 (4.70-6.10); RED CELL DISTRIBUTION WIDTH 17.6 % (11.5-14.5)
[2024-01-20 12:43] LABS: ALBUMIN 3.9 G/DL (3.4-5.0); ANION GAP 7 (8-16); BLOOD UREA NITROGEN 41 MG/DL (7-18); BUN/CREATININE RATIO 28.7 (10.0-20.0); CALCIUM CVVH 7.8 MG/DL (8.5-10.1); CHLORIDE 102 MMOL/L (99-107); CREATININE 1.43 MG/DL (0.60-1.10); GLUCOSE 156 MG/DL (70-104); MAGNESIUM 2.2 MG/DL (1.5-2.4); PHOSPHORUS 3.3 MG/DL (2.3-4.5); POTASSIUM 3.9 MMOL/L (3.5-5.1); SODIUM 134 MMOL/L (135-145); TOTAL CARBON DIOXIDE 24.6 MMOL/L (24-32); eGFR 47 ML/MIN
[2024-01-20 13:16] LABS: PLATELET COUNT 28 X10'3 (140-440)
[2024-01-20] MEDS: potassium Cl 20mEq/100mL bag 100 ML IV SCH (15:20)
[2024-01-20] MEDS ORDERED: potassium Cl 20mEq/100mL bag 100 ML IV PRN (17:00)
[2024-01-20 17:55] LABS: BASOPHILS % (AUTO) 0 % (0-1); EOSINOPHILS % (AUTO) 0.1 % (0-6); HEMATOCRIT 22.8 % (42.0-52.0); HEMOGLOBIN 7.5 g/dl (14.0-17.9); LYMPHOCYTES # (AUTO) 0.6 X10'3 (1.1-4.8); LYMPHOCYTES % (AUTO) 2.4 % (21-51); MEAN CORPUSCULAR HEMOGLOBIN 29.5 PG (27.0-31.0); MEAN CORPUSCULAR HGB CONC 32.8 g/dL (33.0-36.5); MEAN CORPUSCULAR VOLUME 89.9 FL (78-98); MEAN PLATELET VOLUME 11.3 FL (7.4-10.4); MONOCYTES # (AUTO) 1.5 X10'3 (0-0.9); MONOCYTES % (AUTO) 6.3 % (2-12); NEUTROPHILS # (AUTO) 22.1 X10'3 (1.8-7.7); NEUTROPHILS % (AUTO) 91.2 % (42-75); RED BLOOD COUNT 2.53 X10'6 (4.70-6.10); RED CELL DISTRIBUTION WIDTH 17.5 % (11.5-14.5); WHITE BLOOD COUNT 24.2 X10'3 (4.5-11.0)
[2024-01-20 17:58] LABS: PLATELET COUNT 34 X10'3 (140-440)
[2024-01-20 18:23] LABS: ALBUMIN 4.2 G/DL (3.4-5.0); ANION GAP 5 (8-16); BLOOD UREA NITROGEN 38 MG/DL (7-18); BUN/CREATININE RATIO 29.5 (10.0-20.0); CALCIUM CVVH 8.1 MG/DL (8.5-10.1); CHLORIDE 101 MMOL/L (99-107); CREATININE 1.29 MG/DL (0.60-1.10); GLUCOSE 143 MG/DL (70-104); PHOSPHORUS 3.6 MG/DL (2.3-4.5); POTASSIUM 4.7 MMOL/L (3.5-5.1); SODIUM 133 MMOL/L (135-145); TOTAL CARBON DIOXIDE 27.2 MMOL/L (24-32); eGFR 53 ML/MIN
[2024-01-21] VITALS (52 sets, daily range): BP systolic 81–134; BP diastolic 35–61; PULSE 68–77; RESP 25–35; TEMP 98.9–99.3; O2SAT 88–100
[2024-01-21 00:32] LABS: EOSINOPHILS % (AUTO) 0.1 % (0-6); HEMOGLOBIN 7.3 g/dl (14.0-17.9); MEAN CORPUSCULAR HEMOGLOBIN 29.4 PG (27.0-31.0); MEAN CORPUSCULAR HGB CONC 32.6 g/dL (33.0-36.5); MONOCYTES # (AUTO) 1.4 X10'3 (0-0.9)
[2024-01-21 00:33] LABS: BASOPHILS % (AUTO) 0.2 % (0-1); HEMATOCRIT 22.2 % (42.0-52.0); LYMPHOCYTES # (AUTO) 0.7 X10'3 (1.1-4.8); LYMPHOCYTES % (AUTO) 3.3 % (21-51); MEAN CORPUSCULAR VOLUME 90.1 FL (78-98); MEAN PLATELET VOLUME 11.4 FL (7.4-10.4); MONOCYTES % (AUTO) 6.4 % (2-12); NEUTROPHILS # (AUTO) 19.9 X10'3 (1.8-7.7); RED BLOOD COUNT 2.47 X10'6 (4.70-6.10); RED CELL DISTRIBUTION WIDTH 18.3 % (11.5-14.5); WHITE BLOOD COUNT 22.1 X10'3 (4.5-11.0)
[2024-01-21 00:34] LABS: ANION GAP 7 (8-16); BLOOD UREA NITROGEN 39 MG/DL (7-18); BUN/CREATININE RATIO 29.8 (10.0-20.0); CALCIUM 8.5 MG/DL (8.5-10.1); CHLORIDE 102 MMOL/L (99-107); CREATININE 1.31 MG/DL (0.60-1.10); GLUCOSE 151 MG/DL (70-104); PHOSPHORUS 2.9 MG/DL (2.3-4.5); POTASSIUM 4.5 MMOL/L (3.5-5.1); SODIUM 135 MMOL/L (135-145); TOTAL CARBON DIOXIDE 25.9 MMOL/L (24-32); eCRCL 43 ML/MIN; eGFR 53 ML/MIN
[2024-01-21 00:35] LABS: ALANINE AMINOTRANSFERASE 29 U/L (12-78); ALBUMIN 4.3 G/DL (3.4-5.0); ALBUMIN/GLOBULIN RATIO 2.9 (1.1-1.5); ALKALINE PHOSPHATASE 68 IU/L (46-116); ASPARTATE AMINO TRANSFERASE 14 U/L (10-37); TOTAL PROTEIN 5.8 G/DL (6.4-8.2)
[2024-01-21 00:45] LABS: PLATELET COUNT 34 X10'3 (140-440)
[2024-01-21 01:08] LABS: NUCLEATED RED BLOOD CELLS 3 /100WBC (0-0); TOTAL CELLS COUNTED 100
[2024-01-21 01:25] LABS: ACANTHOCYTES FEW; ANISOCYTOSIS 2+; BURR CELLS FEW; HYPOCHROMASIA 1+; PLATELET ESTIMATE DECREASED; POLYCHROMASIA 1+; SCHISTOCYTES 1+; TARGET CELLS 2+
[2024-01-21 01:26] LABS: LARGE PLATELETS FEW
[2024-01-21] MEDS: NORepinephrine 8mg/ 250ml NS 250 ML IV SCH (02:30)
[2024-01-21 04:31] LABS: ABG BASE EXCESS -3.1 mmol/L (-2.0-3.0); ABG HCO3 23.4 mmol/L (21.0-28.0); ABG OXYGEN SATURATION 89.7 % (94.0-98.0); ABG PCO2 (T) 49.4 mmHg (35.0-48.0); ABG PH (T) 7.293 (7.350-7.450); ABG PO2 (T) 62.9 mmHg (83.0-108.0); FCOHb 0.7 % (0.5-1.5); FHHb 10.2 % (0.0-5.0); FMetHb 0.3 % (0.0-1.5); FO2Hb 88.8 % (94.0-98.0); MODE CMV PRVC IT 0.8; PEEP 5 cm H2O; RESPIRATORY RATE 20 b/min; TIDAL VOLUME 450 mL; TOTAL HEMOGLOBIN 7.9 G/dl (13.5-17.5)
[2024-01-21 06:10] LABS: EOSINOPHILS % (AUTO) 0.1 % (0-6); HEMOGLOBIN 7.2 g/dl (14.0-17.9)
[2024-01-21 06:11] LABS: BASOPHILS # (AUTO) 0.1 X10'3 (0-0.2); BASOPHILS % (AUTO) 0.3 % (0-1); HEMATOCRIT 22.2 % (42.0-52.0); LYMPHOCYTES # (AUTO) 0.6 X10'3 (1.1-4.8); LYMPHOCYTES % (AUTO) 2.7 % (21-51); MEAN CORPUSCULAR HEMOGLOBIN 29.4 PG (27.0-31.0); MEAN CORPUSCULAR HGB CONC 32.5 g/dL (33.0-36.5); MEAN CORPUSCULAR VOLUME 90.6 FL (78-98); MEAN PLATELET VOLUME 9.7 FL (7.4-10.4); MONOCYTES # (AUTO) 1.7 X10'3 (0-0.9); MONOCYTES % (AUTO) 7.6 % (2-12); NEUTROPHILS # (AUTO) 19.5 X10'3 (1.8-7.7); NEUTROPHILS % (AUTO) 89.3 % (42-75); RED BLOOD COUNT 2.45 X10'6 (4.70-6.10); RED CELL DISTRIBUTION WIDTH 17.9 % (11.5-14.5); WHITE BLOOD COUNT 21.9 X10'3 (4.5-11.0)
[2024-01-21 06:14] LABS: ALBUMIN 4.3 G/DL (3.4-5.0); ANION GAP 5 (8-16); BLOOD UREA NITROGEN 39 MG/DL (7-18); BUN/CREATININE RATIO 28.9 (10.0-20.0); CALCIUM CVVH 8.1 MG/DL (8.5-10.1); CHLORIDE 101 MMOL/L (99-107); CREATININE 1.35 MG/DL (0.60-1.10); GLUCOSE 170 MG/DL (70-104); MAGNESIUM 1.8 MG/DL (1.5-2.4); PHOSPHORUS 2.6 MG/DL (2.3-4.5); POTASSIUM 4.5 MMOL/L (3.5-5.1); SODIUM 134 MMOL/L (135-145); TOTAL CARBON DIOXIDE 28.2 MMOL/L (24-32); eGFR 51 ML/MIN
[2024-01-21 06:27] LABS: PLATELET COUNT 24 X10'3 (140-440)
[2024-01-21] MEDS: COMMUNICATION ORDER 1 EA MISC MC ONE (11:02)
[2024-01-21 12:35] LABS: LYMPHOCYTES # (AUTO) 0.5 X10'3 (1.1-4.8); RED BLOOD COUNT 2.19 X10'6 (4.70-6.10)
[2024-01-21 12:38] LABS: BASOPHILS # (AUTO) 0.1 X10'3 (0-0.2); BASOPHILS % (AUTO) 0.3 % (0-1); EOSINOPHILS % (AUTO) 0 % (0-6); LYMPHOCYTES % (AUTO) 2.4 % (21-51); MEAN CORPUSCULAR HEMOGLOBIN 29.9 PG (27.0-31.0); MEAN CORPUSCULAR HGB CONC 32.5 g/dL (33.0-36.5); MEAN PLATELET VOLUME 9.3 FL (7.4-10.4); MONOCYTES # (AUTO) 1.6 X10'3 (0-0.9); MONOCYTES % (AUTO) 7.3 % (2-12); NEUTROPHILS # (AUTO) 19.6 X10'3 (1.8-7.7); RED CELL DISTRIBUTION WIDTH 18.5 % (11.5-14.5); WHITE BLOOD COUNT 21.8 X10'3 (4.5-11.0)
[2024-01-21 12:41] LABS: HEMATOCRIT 20.1 % (42.0-52.0); HEMOGLOBIN 6.5 g/dl (14.0-17.9)
[2024-01-21 12:42] LABS: PLATELET COUNT 19 X10'3 (140-440)
[2024-01-21 12:48] LABS: ALBUMIN 4.2 G/DL (3.4-5.0); ANION GAP 8 (8-16); BLOOD UREA NITROGEN 40 MG/DL (7-18); BUN/CREATININE RATIO 29.6 (10.0-20.0); CALCIUM CVVH 8.3 MG/DL (8.5-10.1); CHLORIDE 102 MMOL/L (99-107); CREATININE 1.35 MG/DL (0.60-1.10); GLUCOSE 124 MG/DL (70-104); MAGNESIUM 1.9 MG/DL (1.5-2.4); PHOSPHORUS 2.9 MG/DL (2.3-4.5); POTASSIUM 4.8 MMOL/L (3.5-5.1); SODIUM 136 MMOL/L (135-145); TOTAL CARBON DIOXIDE 26.1 MMOL/L (24-32); eGFR 51 ML/MIN
[2024-01-21 18:31] LABS: BASOPHILS % (AUTO) 0.2 % (0-1); HEMOGLOBIN 8.1 g/dl (14.0-17.9); NEUTROPHILS # (AUTO) 17.2 X10'3 (1.8-7.7)
[2024-01-21 18:33] LABS: EOSINOPHILS % (AUTO) 0.1 % (0-6); HEMATOCRIT 25.2 % (42.0-52.0); LYMPHOCYTES # (AUTO) 0.9 X10'3 (1.1-4.8); LYMPHOCYTES % (AUTO) 4.5 % (21-51); MEAN CORPUSCULAR HEMOGLOBIN 29.1 PG (27.0-31.0); MEAN CORPUSCULAR VOLUME 90.8 FL (78-98); MEAN PLATELET VOLUME 9.2 FL (7.4-10.4); MONOCYTES # (AUTO) 1.3 X10'3 (0-0.9); MONOCYTES % (AUTO) 6.9 % (2-12); NEUTROPHILS % (AUTO) 88.3 % (42-75); RED BLOOD COUNT 2.78 X10'6 (4.70-6.10); RED CELL DISTRIBUTION WIDTH 18.5 % (11.5-14.5); WHITE BLOOD COUNT 19.5 X10'3 (4.5-11.0)
[2024-01-21 18:36] LABS: PLATELET COUNT 20 X10'3 (140-440)
[2024-01-21 18:46] LABS: ALBUMIN 4.2 G/DL (3.4-5.0); ANION GAP 5 (8-16); BLOOD UREA NITROGEN 41 MG/DL (7-18); BUN/CREATININE RATIO 31.5 (10.0-20.0); CHLORIDE 102 MMOL/L (99-107); GLUCOSE 160 MG/DL (70-104); MAGNESIUM 1.8 MG/DL (1.5-2.4); PHOSPHORUS 2.7 MG/DL (2.3-4.5); POTASSIUM 4.7 MMOL/L (3.5-5.1); SODIUM 133 MMOL/L (135-145); TOTAL CARBON DIOXIDE 26.5 MMOL/L (24-32); eGFR 53 ML/MIN
[2024-01-22] VITALS (53 sets, daily range): BP systolic 85–124; BP diastolic 36–59; PULSE 45–136; RESP 23–38; TEMP 98.2–99.8; O2SAT 90–99
[2024-01-22 00:16] LABS: HEMOGLOBIN 7.9 g/dl (14.0-17.9); MONOCYTES # (AUTO) 1.5 X10'3 (0-0.9)
[2024-01-22 00:18] LABS: BASOPHILS % (AUTO) 0.2 % (0-1); EOSINOPHILS % (AUTO) 0.1 % (0-6); HEMATOCRIT 24.7 % (42.0-52.0); LYMPHOCYTES # (AUTO) 0.7 X10'3 (1.1-4.8); LYMPHOCYTES % (AUTO) 3.8 % (21-51); MEAN CORPUSCULAR HEMOGLOBIN 28.8 PG (27.0-31.0); MEAN CORPUSCULAR VOLUME 90.2 FL (78-98); MEAN PLATELET VOLUME 10.7 FL (7.4-10.4); MONOCYTES % (AUTO) 7.6 % (2-12); NEUTROPHILS # (AUTO) 17.6 X10'3 (1.8-7.7); NEUTROPHILS % (AUTO) 88.3 % (42-75); RED BLOOD COUNT 2.73 X10'6 (4.70-6.10); RED CELL DISTRIBUTION WIDTH 18.3 % (11.5-14.5); WHITE BLOOD COUNT 19.9 X10'3 (4.5-11.0)
[2024-01-22 00:21] LABS: PLATELET COUNT 32 X10'3 (140-440)
[2024-01-22 00:34] LABS: ANISOCYTOSIS 2+; NUCLEATED RED BLOOD CELLS 5 /100WBC (0-0); PLATELET ESTIMATE DECREASED; TOTAL CELLS COUNTED 100
[2024-01-22 00:35] LABS: ELLIPTOCYTES FEW; POLYCHROMASIA FEW; SCHISTOCYTES FEW; TARGET CELLS FEW
[2024-01-22 00:38] LABS: ALANINE AMINOTRANSFERASE 25 U/L (12-78); ALBUMIN 4.6 G/DL (3.4-5.0); ALBUMIN/GLOBULIN RATIO 3.3 (1.1-1.5); ALKALINE PHOSPHATASE 64 IU/L (46-116); ANION GAP 8 (8-16); ASPARTATE AMINO TRANSFERASE 14 U/L (10-37); BLOOD UREA NITROGEN 40 MG/DL (7-18); BUN/CREATININE RATIO 31.7 (10.0-20.0); CALCIUM 8.5 MG/DL (8.5-10.1); CALCIUM CVVH 8.5 MG/DL (8.5-10.1); CHLORIDE 101 MMOL/L (99-107); CREATININE 1.26 MG/DL (0.60-1.10); GLUCOSE 151 MG/DL (70-104); MAGNESIUM 1.8 MG/DL (1.5-2.4); PHOSPHORUS 2.4 MG/DL (2.3-4.5); POTASSIUM 4.5 MMOL/L (3.5-5.1); SODIUM 135 MMOL/L (135-145); TOTAL CARBON DIOXIDE 25.6 MMOL/L (24-32); eCRCL 44 ML/MIN; eGFR 55 ML/MIN
[2024-01-22 04:17] LABS: ABG BASE EXCESS -4.4 mmol/L (-2.0-3.0); ABG HCO3 21.9 mmol/L (21.0-28.0); ABG OXYGEN SATURATION 96.2 % (94.0-98.0); ABG PCO2 (T) 46.3 mmHg (35.0-48.0); ABG PH (T) 7.294 (7.350-7.450); ABG PO2 (T) 91.8 mmHg (83.0-108.0); FCOHb 0.5 % (0.5-1.5); FHHb 3.8 % (0.0-5.0); FMetHb 0.3 % (0.0-1.5); FO2Hb 95.4 % (94.0-98.0); MODE VENT - prvc; PATIENT TEMPERATURE 37.3; PEEP 5 cm H2O; RESPIRATORY RATE 24 b/min; TIDAL VOLUME 450 mL; TOTAL HEMOGLOBIN 8.4 G/dl (13.5-17.5)
[2024-01-22 06:15] LABS: ALBUMIN 4.4 G/DL (3.4-5.0); ANION GAP 4 (8-16); BLOOD UREA NITROGEN 40 MG/DL (7-18); BUN/CREATININE RATIO 30.8 (10.0-20.0); CALCIUM CVVH 8.3 MG/DL (8.5-10.1); CHLORIDE 102 MMOL/L (99-107); GLUCOSE 139 MG/DL (70-104); MAGNESIUM 1.8 MG/DL (1.5-2.4); PHOSPHORUS 2.5 MG/DL (2.3-4.5); POTASSIUM 4.5 MMOL/L (3.5-5.1); SODIUM 134 MMOL/L (135-145); TOTAL CARBON DIOXIDE 28.4 MMOL/L (24-32); eGFR 53 ML/MIN
[2024-01-22 06:21] LABS: BASOPHILS # (AUTO) 0.1 X10'3 (0-0.2); HEMOGLOBIN 7.8 g/dl (14.0-17.9); LYMPHOCYTES # (AUTO) 0.7 X10'3 (1.1-4.8); MEAN CORPUSCULAR HEMOGLOBIN 28.6 PG (27.0-31.0); RED BLOOD COUNT 2.74 X10'6 (4.70-6.10)
[2024-01-22 06:24] LABS: BASOPHILS % (AUTO) 0.4 % (0-1); EOSINOPHILS % (AUTO) 0.1 % (0-6); HEMATOCRIT 24.8 % (42.0-52.0); MEAN CORPUSCULAR HGB CONC 31.6 g/dL (33.0-36.5); MEAN CORPUSCULAR VOLUME 90.5 FL (78-98); MEAN PLATELET VOLUME 10.9 FL (7.4-10.4); MONOCYTES # (AUTO) 1.4 X10'3 (0-0.9); MONOCYTES % (AUTO) 7.8 % (2-12); NEUTROPHILS # (AUTO) 16.2 X10'3 (1.8-7.7); NEUTROPHILS % (AUTO) 87.7 % (42-75); RED CELL DISTRIBUTION WIDTH 18.4 % (11.5-14.5); WHITE BLOOD COUNT 18.5 X10'3 (4.5-11.0)
[2024-01-22 06:51] LABS: PLATELET COUNT 32 X10'3 (140-440)
[2024-01-22] MEDS: amiodarone/D5 360MG/200ML BAG 200 ML IV SCH ×2 (07:58→08:54)
[2024-01-22] MEDS: magnesium sulf-water 2g/50mL 50 ML IV ONE (08:58)
[2024-01-22] MEDS: PHENYLephrine 10mg/ml inj. 50 MG in normal saline 250ml IV soln 245 ML IV SCH (09:01)
[2024-01-22 09:18] LABS: OXYGEN SATURATION (MIXED VEN) 57.4 % (60-80); PO2 MIXED VENOUS (TEMP COR) 32.3 mmHg (35-46)
[2024-01-22 12:31] LABS: ALBUMIN 4.2 G/DL (3.4-5.0); ANION GAP 7 (8-16); BLOOD UREA NITROGEN 45 MG/DL (7-18); BUN/CREATININE RATIO 31.7 (10.0-20.0); CALCIUM CVVH 8.1 MG/DL (8.5-10.1); CHLORIDE 102 MMOL/L (99-107); CREATININE 1.42 MG/DL (0.60-1.10); GLUCOSE 154 MG/DL (70-104); MAGNESIUM 1.8 MG/DL (1.5-2.4); PHOSPHORUS 2.5 MG/DL (2.3-4.5); POTASSIUM 4.6 MMOL/L (3.5-5.1); SODIUM 135 MMOL/L (135-145); TOTAL CARBON DIOXIDE 26.5 MMOL/L (24-32); eGFR 48 ML/MIN
[2024-01-22 13:29] LABS: BASOPHILS % (AUTO) 0.3 % (0-1); EOSINOPHILS % (AUTO) 0.2 % (0-6); HEMATOCRIT 26.3 % (42.0-52.0); HEMOGLOBIN 8.5 g/dl (14.0-17.9); LYMPHOCYTES # (AUTO) 0.5 X10'3 (1.1-4.8); LYMPHOCYTES % (AUTO) 2.6 % (21-51); MEAN CORPUSCULAR HEMOGLOBIN 29.1 PG (27.0-31.0); MEAN CORPUSCULAR HGB CONC 32.3 g/dL (33.0-36.5); MEAN PLATELET VOLUME 11.1 FL (7.4-10.4); MONOCYTES # (AUTO) 1.4 X10'3 (0-0.9); MONOCYTES % (AUTO) 7.9 % (2-12); NEUTROPHILS # (AUTO) 15.4 X10'3 (1.8-7.7); RED BLOOD COUNT 2.92 X10'6 (4.70-6.10); RED CELL DISTRIBUTION WIDTH 18.1 % (11.5-14.5); WHITE BLOOD COUNT 17.2 X10'3 (4.5-11.0)
[2024-01-22 13:32] LABS: PLATELET COUNT 28 X10'3 (140-440)
[2024-01-22] MEDS: albumin (human) 25% 100 ML IV solution IV ONE ×2 (16:00→17:51)
[2024-01-22 17:27] LABS: OXYGEN SATURATION (MIXED VEN) 65.8 % (60-80); PO2 MIXED VENOUS (TEMP COR) 35.8 mmHg (35-46)
[2024-01-22 18:00] LABS: EOSINOPHILS % (AUTO) 0.1 % (0-6); HEMOGLOBIN 8.9 g/dl (14.0-17.9)
[2024-01-22 18:01] LABS: BASOPHILS % (AUTO) 0.3 % (0-1); HEMATOCRIT 27.3 % (42.0-52.0); LYMPHOCYTES # (AUTO) 0.6 X10'3 (1.1-4.8); LYMPHOCYTES % (AUTO) 3.8 % (21-51); MEAN CORPUSCULAR HEMOGLOBIN 29.1 PG (27.0-31.0); MEAN CORPUSCULAR HGB CONC 32.6 g/dL (33.0-36.5); MEAN CORPUSCULAR VOLUME 89.3 FL (78-98); MEAN PLATELET VOLUME 9.7 FL (7.4-10.4); MONOCYTES % (AUTO) 6.8 % (2-12); NEUTROPHILS # (AUTO) 13.5 X10'3 (1.8-7.7); RED BLOOD COUNT 3.06 X10'6 (4.70-6.10); RED CELL DISTRIBUTION WIDTH 17.5 % (11.5-14.5); WHITE BLOOD COUNT 15.2 X10'3 (4.5-11.0)
[2024-01-22 18:14] LABS: ALBUMIN 4.7 G/DL (3.4-5.0); ANION GAP 7 (8-16); BLOOD UREA NITROGEN 44 MG/DL (7-18); BUN/CREATININE RATIO 31.9 (10.0-20.0); CALCIUM CVVH 8.3 MG/DL (8.5-10.1); CHLORIDE 103 MMOL/L (99-107); CREATININE 1.38 MG/DL (0.60-1.10); GLUCOSE 139 MG/DL (70-104); PHOSPHORUS 2.4 MG/DL (2.3-4.5); POTASSIUM 4.3 MMOL/L (3.5-5.1); SODIUM 136 MMOL/L (135-145); TOTAL CARBON DIOXIDE 25.7 MMOL/L (24-32); eGFR 49 ML/MIN
[2024-01-22 18:22] LABS: PLATELET COUNT 16 X10'3 (140-440)
[2024-01-22] MEDS: epiNEPHrine 0.1mg/ml 10ml syringe ONE (18:25)
[2024-01-22] MEDS: atropine 0.1mg/ml 10ml syringe ONE (18:26)
[2024-01-22] MEDS: metoprolol tartrate 12.5mg (1/2 tablet) PO SCH (20:00)
[2024-01-22 23:21] LABS: ABG BASE EXCESS -5.9 mmol/L (-2.0-3.0); ABG HCO3 20.9 mmol/L (21.0-28.0); ABG OXYGEN SATURATION 93.9 % (94.0-98.0); ABG PCO2 (T) 47.5 mmHg (35.0-48.0); ABG PH (T) 7.263 (7.350-7.450); ALLEN'S TEST Modified; FCOHb 0.3 % (0.5-1.5); FHHb 6.1 % (0.0-5.0); FMetHb 0.3 % (0.0-1.5); FO2Hb 93.3 % (94.0-98.0); MODE VENT - PRVC; PATIENT TEMPERATURE 37.1; PEEP 8 cm H2O; RESPIRATORY RATE 24 b/min; TIDAL VOLUME 450 mL; TOTAL HEMOGLOBIN 10.2 G/dl (13.5-17.5)
[2024-01-23] VITALS (45 sets, daily range): BP systolic 83–124; BP diastolic 40–63; PULSE 47–137; RESP 19–31; TEMP 98.9; O2SAT 92–98
[2024-01-23 00:30] LABS: HEMOGLOBIN 9.3 g/dl (14.0-17.9); NEUTROPHILS % (AUTO) 89.8 % (42-75); RED CELL DISTRIBUTION WIDTH 17.8 % (11.5-14.5)
[2024-01-23 00:31] LABS: BASOPHILS % (AUTO) 0.2 % (0-1); EOSINOPHILS % (AUTO) 0.2 % (0-6); HEMATOCRIT 28.5 % (42.0-52.0); LYMPHOCYTES # (AUTO) 0.6 X10'3 (1.1-4.8); LYMPHOCYTES % (AUTO) 3.6 % (21-51); MEAN CORPUSCULAR HEMOGLOBIN 29.3 PG (27.0-31.0); MEAN CORPUSCULAR HGB CONC 32.5 g/dL (33.0-36.5); MEAN PLATELET VOLUME 7.6 FL (7.4-10.4); MONOCYTES % (AUTO) 6.2 % (2-12); NEUTROPHILS # (AUTO) 14.8 X10'3 (1.8-7.7); PLATELET COUNT 77 X10'3 (140-440); RED BLOOD COUNT 3.17 X10'6 (4.70-6.10); WHITE BLOOD COUNT 16.4 X10'3 (4.5-11.0)
[2024-01-23 00:40] LABS: ALANINE AMINOTRANSFERASE 22 U/L (12-78); ALBUMIN/GLOBULIN RATIO 3.3 (1.1-1.5); ALKALINE PHOSPHATASE 56 IU/L (46-116); ANION GAP 7 (8-16); ASPARTATE AMINO TRANSFERASE 20 U/L (10-37); BILIRUBIN,TOTAL 1.5 MG/DL (0.1-1.0); BLOOD UREA NITROGEN 43 MG/DL (7-18); BUN/CREATININE RATIO 30.7 (10.0-20.0); CALCIUM 8.2 MG/DL (8.5-10.1); CHLORIDE 102 MMOL/L (99-107); GLUCOSE 109 MG/DL (70-104); MAGNESIUM 1.9 MG/DL (1.5-2.4); PHOSPHORUS 2.3 MG/DL (2.3-4.5); POTASSIUM 4.1 MMOL/L (3.5-5.1); PREALBUMIN 14.6 MG/DL (19-36); SODIUM 136 MMOL/L (135-145); TOTAL CARBON DIOXIDE 27.3 MMOL/L (24-32); TOTAL PROTEIN 6.5 G/DL (6.4-8.2); eCRCL 40 ML/MIN; eGFR 49 ML/MIN
[2024-01-23 01:25] LABS: LYMPHOCYTES % (MANUAL) 1 % (21-51); METAMYLEOCYTES% (MANUAL) 2 % (0-0); MONOCYTES % (MANUAL) 2 % (2-12); NEUTROPHILS % (MANUAL) 93 % (42-75); NUCLEATED RED BLOOD CELLS 6 /100WBC (0-0); PLATELET ESTIMATE DECREASED; REACTIVE LYMPHOCYTES % 2 % (0-0)
[2024-01-23 01:26] LABS: ANISOCYTOSIS 1+; ELLIPTOCYTES 1+; POIKILOCYTOSIS 2+; POLYCHROMASIA 1+; TARGET CELLS 1+
[2024-01-23 01:27] LABS: BURR CELLS 1+; TEAR DROP CELLS 1+
[2024-01-23 03:02] LABS: TOTAL CELLS COUNTED 100
[2024-01-23 04:03] LABS: ABG BASE EXCESS -5.7 mmol/L (-2.0-3.0); ABG HCO3 21.2 mmol/L (21.0-28.0); ABG OXYGEN SATURATION 97.5 % (94.0-98.0); ABG PH (T) 7.262 (7.350-7.450); ABG PO2 (T) 106.3 mmHg (83.0-108.0); FCOHb 0.2 % (0.5-1.5); FHHb 2.5 % (0.0-5.0); FMetHb 0.3 % (0.0-1.5); MODE VENT - PRVC; PATIENT TEMPERATURE 36.9; PEEP 8 cm H2O; RESPIRATORY RATE 24 b/min; TIDAL VOLUME 450 mL; TOTAL HEMOGLOBIN 9.7 G/dl (13.5-17.5)
[2024-01-23 05:54] LABS: LYMPHOCYTES # (AUTO) 0.5 X10'3 (1.1-4.8)
[2024-01-23 05:55] LABS: BASOPHILS # (AUTO) 0.1 X10'3 (0-0.2); BASOPHILS % (AUTO) 0.4 % (0-1); EOSINOPHILS # (AUTO) 0.1 X10'3 (0-0.9); EOSINOPHILS % (AUTO) 0.4 % (0-6); HEMOGLOBIN 9.1 g/dl (14.0-17.9); LYMPHOCYTES % (AUTO) 3.1 % (21-51); MEAN CORPUSCULAR HEMOGLOBIN 29.2 PG (27.0-31.0); MEAN CORPUSCULAR HGB CONC 32.4 g/dL (33.0-36.5); MEAN CORPUSCULAR VOLUME 90.2 FL (78-98); MEAN PLATELET VOLUME 7.3 FL (7.4-10.4); MONOCYTES # (AUTO) 1.3 X10'3 (0-0.9); MONOCYTES % (AUTO) 8.1 % (2-12); NEUTROPHILS # (AUTO) 13.8 X10'3 (1.8-7.7); RED CELL DISTRIBUTION WIDTH 17.4 % (11.5-14.5)
[2024-01-23 06:50] LABS: ALBUMIN 4.8 G/DL (3.4-5.0); ANION GAP 9 (8-16); BLOOD UREA NITROGEN 41 MG/DL (7-18); BUN/CREATININE RATIO 31.8 (10.0-20.0); CALCIUM 8.6 MG/DL (8.5-10.1); CHLORIDE 103 MMOL/L (99-107); CREATININE 1.29 MG/DL (0.60-1.10); GLUCOSE 105 MG/DL (70-104); PHOSPHORUS 2.5 MG/DL (2.3-4.5); POTASSIUM 4.5 MMOL/L (3.5-5.1); SODIUM 137 MMOL/L (135-145); TOTAL CARBON DIOXIDE 24.7 MMOL/L (24-32); eCRCL 43 ML/MIN; eGFR 53 ML/MIN
[2024-01-23] MEDS: albumin (Human) 5% 250ml 250 ML IV ONE ×2 (09:15→10:22)
[2024-01-23 09:18] LABS: PLATELET COUNT 53 X10'3 (140-440)
[2024-01-23 09:19] LABS: WHITE BLOOD COUNT 15.7 X10'3 (4.5-11.0)
[2024-01-23 12:16] LABS: EOSINOPHILS % (AUTO) 0.2 % (0-6); HEMOGLOBIN 8.6 g/dl (14.0-17.9); LYMPHOCYTES # (AUTO) 0.6 X10'3 (1.1-4.8); LYMPHOCYTES % (AUTO) 4.6 % (21-51); RED BLOOD COUNT 2.98 X10'6 (4.70-6.10)
[2024-01-23 12:18] LABS: BASOPHILS % (AUTO) 0.2 % (0-1); HEMATOCRIT 26.8 % (42.0-52.0); MEAN CORPUSCULAR HGB CONC 32.2 g/dL (33.0-36.5); MEAN PLATELET VOLUME 8.4 FL (7.4-10.4); MONOCYTES % (AUTO) 7.3 % (2-12); NEUTROPHILS # (AUTO) 11.6 X10'3 (1.8-7.7); NEUTROPHILS % (AUTO) 87.7 % (42-75); RED CELL DISTRIBUTION WIDTH 17.8 % (11.5-14.5); WHITE BLOOD COUNT 13.2 X10'3 (4.5-11.0)
[2024-01-23 12:25] LABS: PLATELET COUNT 46 X10'3 (140-440)
[2024-01-23 12:40] LABS: ANISOCYTOSIS 1+; ELLIPTOCYTES FEW; NUCLEATED RED BLOOD CELLS 1 /100WBC (0-0); PLATELET ESTIMATE DECREASED; TOTAL CELLS COUNTED 100
[2024-01-23 12:41] LABS: BURR CELLS FEW; HYPOCHROMASIA 1+; SCHISTOCYTES FEW
[2024-01-23 12:42] LABS: ALBUMIN 5.2 G/DL (3.4-5.0); ANION GAP 6 (8-16); BLOOD UREA NITROGEN 43 MG/DL (7-18); BUN/CREATININE RATIO 33.9 (10.0-20.0); CALCIUM 8.5 MG/DL (8.5-10.1); CHLORIDE 103 MMOL/L (99-107); CREATININE 1.27 MG/DL (0.60-1.10); GLUCOSE 123 MG/DL (70-104); PHOSPHORUS 2.3 MG/DL (2.3-4.5); POTASSIUM 4.1 MMOL/L (3.5-5.1); SODIUM 135 MMOL/L (135-145); TOTAL CARBON DIOXIDE 26.1 MMOL/L (24-32); eCRCL 44 ML/MIN; eGFR 54 ML/MIN
[2024-01-23] MEDS: sildenafil citrate 20mg tablet PO SCH (12:54)
[2024-01-23 13:50] LABS: OXYGEN SATURATION (MIXED VEN) 74.5 % (60-80); PO2 MIXED VENOUS (TEMP COR) 40.3 mmHg (35-46)
[2024-01-23 17:48] LABS: HEMOGLOBIN 8.6 g/dl (14.0-17.9); MEAN CORPUSCULAR HEMOGLOBIN 29.3 PG (27.0-31.0); MONOCYTES # (AUTO) 0.9 X10'3 (0-0.9)
[2024-01-23 17:49] LABS: BASOPHILS % (AUTO) 0.3 % (0-1); EOSINOPHILS % (AUTO) 0.1 % (0-6); HEMATOCRIT 26.5 % (42.0-52.0); LYMPHOCYTES # (AUTO) 0.7 X10'3 (1.1-4.8); LYMPHOCYTES % (AUTO) 5.2 % (21-51); MEAN CORPUSCULAR HGB CONC 32.4 g/dL (33.0-36.5); MEAN CORPUSCULAR VOLUME 90.5 FL (78-98); MEAN PLATELET VOLUME 8.8 FL (7.4-10.4); MONOCYTES % (AUTO) 6.9 % (2-12); NEUTROPHILS # (AUTO) 11.7 X10'3 (1.8-7.7); NEUTROPHILS % (AUTO) 87.5 % (42-75); RED BLOOD COUNT 2.93 X10'6 (4.70-6.10); WHITE BLOOD COUNT 13.4 X10'3 (4.5-11.0)
[2024-01-23 17:52] LABS: PLATELET COUNT 39 X10'3 (140-440)
[2024-01-23 18:03] LABS: ALBUMIN 4.8 G/DL (3.4-5.0); ANION GAP 8 (8-16); BLOOD UREA NITROGEN 44 MG/DL (7-18); BUN/CREATININE RATIO 32.8 (10.0-20.0); CALCIUM 8.2 MG/DL (8.5-10.1); CHLORIDE 102 MMOL/L (99-107); CREATININE 1.34 MG/DL (0.60-1.10); GLUCOSE 161 MG/DL (70-104); MAGNESIUM 1.8 MG/DL (1.5-2.4); PHOSPHORUS 2.6 MG/DL (2.3-4.5); POTASSIUM 4.2 MMOL/L (3.5-5.1); SODIUM 136 MMOL/L (135-145); TOTAL CARBON DIOXIDE 26.1 MMOL/L (24-32); eCRCL 42 ML/MIN; eGFR 51 ML/MIN
[2024-01-23] MEDS: metoprolol tartrate 12.5mg (1/2 tablet) OGT SCH (19:50)
[2024-01-23] MEDS: midazolam 1 mg/ML 2ml injection IV PRN (22:54)
[2024-01-24] VITALS (27 sets, daily range): BP systolic 97–114; BP diastolic 43–52; PULSE 66–74; RESP 16–30; TEMP 98.9; O2SAT 69–98
[2024-01-24 00:36] LABS: BASOPHILS # (AUTO) 0.1 X10'3 (0-0.2); HEMATOCRIT 25.4 % (42.0-52.0); HEMOGLOBIN 8.2 g/dl (14.0-17.9); LYMPHOCYTES # (AUTO) 0.4 X10'3 (1.1-4.8); MEAN CORPUSCULAR HGB CONC 32.1 g/dL (33.0-36.5); MONOCYTES # (AUTO) 1.1 X10'3 (0-0.9); NEUTROPHILS # (AUTO) 12.1 X10'3 (1.8-7.7); WHITE BLOOD COUNT 13.7 X10'3 (4.5-11.0)
[2024-01-24 00:38] LABS: BASOPHILS % (AUTO) 0.5 % (0-1); EOSINOPHILS % (AUTO) 0.3 % (0-6); LYMPHOCYTES % (AUTO) 3.2 % (21-51); MEAN CORPUSCULAR HEMOGLOBIN 29.3 PG (27.0-31.0); MEAN CORPUSCULAR VOLUME 91.1 FL (78-98); MEAN PLATELET VOLUME 9.4 FL (7.4-10.4); MONOCYTES % (AUTO) 7.9 % (2-12); NEUTROPHILS % (AUTO) 88.1 % (42-75); RED BLOOD COUNT 2.79 X10'6 (4.70-6.10)
[2024-01-24 00:45] LABS: PLATELET COUNT 33 X10'3 (140-440)
[2024-01-24 01:02] LABS: ALANINE AMINOTRANSFERASE 20 U/L (12-78); ALBUMIN 4.7 G/DL (3.4-5.0); ALBUMIN/GLOBULIN RATIO 2.5 (1.1-1.5); ALKALINE PHOSPHATASE 42 IU/L (46-116); ANION GAP 7 (8-16); ASPARTATE AMINO TRANSFERASE 10 U/L (10-37); BILIRUBIN,TOTAL 1.3 MG/DL (0.1-1.0); BLOOD UREA NITROGEN 40 MG/DL (7-18); CALCIUM 8.3 MG/DL (8.5-10.1); CHLORIDE 103 MMOL/L (99-107); CREATININE 1.25 MG/DL (0.60-1.10); GLUCOSE 152 MG/DL (70-104); MAGNESIUM 1.8 MG/DL (1.5-2.4); PHOSPHORUS 3.9 MG/DL (2.3-4.5); POTASSIUM 4.2 MMOL/L (3.5-5.1); SODIUM 136 MMOL/L (135-145); TOTAL CARBON DIOXIDE 26.2 MMOL/L (24-32); TOTAL PROTEIN 6.6 G/DL (6.4-8.2); eCRCL 45 ML/MIN; eGFR 55 ML/MIN
[2024-01-24 04:34] LABS: ABG BASE EXCESS -3.2 mmol/L (-2.0-3.0); ABG HCO3 23.9 mmol/L (21.0-28.0); ABG PCO2 (T) 54.5 mmHg (35.0-48.0); ABG PH (T) 7.261 (7.350-7.450); ABG PO2 (T) 102.5 mmHg (83.0-108.0); FCOHb 0.4 % (0.5-1.5); FMetHb 0.3 % (0.0-1.5); FO2Hb 96.3 % (94.0-98.0); MODE VENT - PRVC; PATIENT TEMPERATURE 37.4; PEEP 8 cm H2O; RESPIRATORY RATE 24 b/min; TIDAL VOLUME 450 mL; TOTAL HEMOGLOBIN 8.9 G/dl (13.5-17.5)
[2024-01-24 06:16] LABS: ALBUMIN 4.7 G/DL (3.4-5.0); ANION GAP 6 (8-16); BLOOD UREA NITROGEN 42 MG/DL (7-18); BUN/CREATININE RATIO 31.3 (10.0-20.0); CALCIUM 8.1 MG/DL (8.5-10.1); CHLORIDE 102 MMOL/L (99-107); CREATININE 1.34 MG/DL (0.60-1.10); GLUCOSE 143 MG/DL (70-104); MAGNESIUM 1.7 MG/DL (1.5-2.4); PHOSPHORUS 2.9 MG/DL (2.3-4.5); POTASSIUM 4.3 MMOL/L (3.5-5.1); SODIUM 136 MMOL/L (135-145); TOTAL CARBON DIOXIDE 28.3 MMOL/L (24-32); eCRCL 42 ML/MIN; eGFR 51 ML/MIN
[2024-01-24 06:17] LABS: HEMOGLOBIN 8.4 g/dl (14.0-17.9); MONOCYTES # (AUTO) 1.1 X10'3 (0-0.9)
[2024-01-24 06:19] LABS: BASOPHILS % (AUTO) 0.3 % (0-1); EOSINOPHILS % (AUTO) 0.1 % (0-6); LYMPHOCYTES # (AUTO) 0.5 X10'3 (1.1-4.8); LYMPHOCYTES % (AUTO) 4.2 % (21-51); MEAN CORPUSCULAR HEMOGLOBIN 29.5 PG (27.0-31.0); MEAN CORPUSCULAR HGB CONC 32.5 g/dL (33.0-36.5); MEAN CORPUSCULAR VOLUME 90.7 FL (78-98); MEAN PLATELET VOLUME 9.7 FL (7.4-10.4); MONOCYTES % (AUTO) 8.8 % (2-12); NEUTROPHILS # (AUTO) 10.9 X10'3 (1.8-7.7); NEUTROPHILS % (AUTO) 86.6 % (42-75); RED BLOOD COUNT 2.86 X10'6 (4.70-6.10); WHITE BLOOD COUNT 12.6 X10'3 (4.5-11.0)
[2024-01-24 06:25] LABS: PLATELET COUNT 27 X10'3 (140-440)
[2024-01-24 08:26] LABS: NUCLEATED RED BLOOD CELLS 3 /100WBC (0-0); TOTAL CELLS COUNTED 100
[2024-01-24 08:27] LABS: ANISOCYTOSIS 1+; PLATELET ESTIMATE DECREASED
[2024-01-24 08:29] LABS: BURR CELLS 1+; POIKILOCYTOSIS 1+; SCHISTOCYTES 1+
[2024-01-24] MEDS: vancomycin 1,750 MG in NS 350ml IV soln IV ONE (09:00)
[2024-01-24 09:57] LABS: ABG BASE EXCESS -5.9 mmol/L (-2.0-3.0); ABG HCO3 20.7 mmol/L (21.0-28.0); ABG OXYGEN SATURATION 95.9 % (94.0-98.0); ABG PCO2 (T) 46.6 mmHg (35.0-48.0); ABG PH (T) 7.267 (7.350-7.450); ABG PO2 (T) 94.9 mmHg (83.0-108.0); FCOHb 0.3 % (0.5-1.5); FHHb 4.1 % (0.0-5.0); FMetHb 0.1 % (0.0-1.5); FO2Hb 95.5 % (94.0-98.0); MODE VENT - AC/PRVC; PATIENT TEMPERATURE 37.2; PEEP 8 cm H2O; RESPIRATORY RATE 24 b/min; TIDAL VOLUME 450 mL; TOTAL HEMOGLOBIN 9.7 G/dl (13.5-17.5)
[2024-01-24] MEDS ORDERED: methylnaltrexone br 12mg/0.6ml inj***SubQ only SQ PRN (10:25)
[2024-01-24] MEDS ORDERED: mineral oil 133ml enema RC PRN (10:30)
[2024-01-24] MEDS: methylnaltrexone br 12mg/0.6ml inj***SubQ only SQ SCH (11:17)
[2024-01-24 12:14] LABS: EOSINOPHILS % (AUTO) 0.2 % (0-6); HEMOGLOBIN 8.6 g/dl (14.0-17.9); MEAN CORPUSCULAR VOLUME 90.6 FL (78-98); RED BLOOD COUNT 2.94 X10'6 (4.70-6.10)
[2024-01-24 12:16] LABS: BASOPHILS % (AUTO) 0.3 % (0-1); HEMATOCRIT 26.6 % (42.0-52.0); LYMPHOCYTES # (AUTO) 0.7 X10'3 (1.1-4.8); LYMPHOCYTES % (AUTO) 5.3 % (21-51); MEAN CORPUSCULAR HEMOGLOBIN 29.3 PG (27.0-31.0); MEAN CORPUSCULAR HGB CONC 32.4 g/dL (33.0-36.5); MEAN PLATELET VOLUME 8.6 FL (7.4-10.4); MONOCYTES # (AUTO) 0.9 X10'3 (0-0.9); MONOCYTES % (AUTO) 7.3 % (2-12); NEUTROPHILS # (AUTO) 11.3 X10'3 (1.8-7.7); NEUTROPHILS % (AUTO) 86.9 % (42-75); RED CELL DISTRIBUTION WIDTH 17.8 % (11.5-14.5)
[2024-01-24 12:19] LABS: ALBUMIN 4.4 G/DL (3.4-5.0); ANION GAP 8 (8-16); BLOOD UREA NITROGEN 42 MG/DL (7-18); BUN/CREATININE RATIO 32.8 (10.0-20.0); CALCIUM 8.3 MG/DL (8.5-10.1); CHLORIDE 103 MMOL/L (99-107); CREATININE 1.28 MG/DL (0.60-1.10); GLUCOSE 152 MG/DL (70-104); MAGNESIUM 2.6 MG/DL (1.5-2.4); POTASSIUM 4.2 MMOL/L (3.5-5.1); SODIUM 135 MMOL/L (135-145); TOTAL CARBON DIOXIDE 24.5 MMOL/L (24-32); eCRCL 44 ML/MIN; eGFR 54 ML/MIN
[2024-01-24 12:23] LABS: PLATELET COUNT 25 X10'3 (140-440)
[2024-01-24] MEDS: LORazepam 2 mg/ml vial IV PRN (14:15)
[2024-01-24] MEDS: morphine 10mg/ml inj. IV PRN (14:15)
[2024-01-25] MEDS ORDERED: vancomycin/NS 1 GM ADD-VANTAGE 250 ML IV SCH (09:00)
[2024-01-27] MEDS ORDERED: VANCOMYCIN LEVEL IV ONE (08:30)
== END 2024-01-24 17:18 | DRG 853 ==
LOC: PAS IN 05:57 → CICU 2S 14:24 → PCU 3S 01-08 15:58 → CICU 2S 01-10 12:49
PROVIDERS: ADMIT Surgery; ATTEND Surgery
PROC: 0W9930Z Drainage of Right Pleural Cavity with Drainage Device, Percutaneous Approach (ICD-10-PCS; 2024-01-06)
PROC: 07B74ZZ Excision of Thorax Lymphatic, Percutaneous Endoscopic Approach (ICD-10-PCS; 2024-01-06)
PROC: 8E0W4CZ Robotic Assisted Procedure of Trunk Region, Percutaneous Endoscopic Approach (ICD-10-PCS; 2024-01-06)
PROC: 0BTC4ZZ Resection of Right Upper Lung Lobe, Percutaneous Endoscopic Approach (ICD-10-PCS; principal; 2024-01-06 08:08)
PROC: 5A0935A Assistance with Respiratory Ventilation, Less than 24 Consecutive Hours, High Flow/Velocity Cannula (ICD-10-PCS; 2024-01-09)
PROC: 0BC38ZZ Extirpation of Matter from Right Main Bronchus, Via Natural or Artificial Opening Endoscopic (ICD-10-PCS; 2024-01-10)
PROC: 02HV33Z Insertion of Infusion Device into Superior Vena Cava, Percutaneous Approach (ICD-10-PCS; 2024-01-10)
PROC: B548ZZA Ultrasonography of Superior Vena Cava, Guidance (ICD-10-PCS; 2024-01-10)
PROC: 0BH17EZ Insertion of Endotracheal Airway into Trachea, Via Natural or Artificial Opening (ICD-10-PCS; 2024-01-10)
PROC: 5A1955Z Respiratory Ventilation, Greater than 96 Consecutive Hours (ICD-10-PCS; 2024-01-10)
PROC: 02HV33Z Insertion of Infusion Device into Superior Vena Cava, Percutaneous Approach (ICD-10-PCS; 2024-01-12)
PROC: B548ZZA Ultrasonography of Superior Vena Cava, Guidance (ICD-10-PCS; 2024-01-12)
PROC: 30233R1 Transfusion of Nonautologous Platelets into Peripheral Vein, Percutaneous Approach (ICD-10-PCS; 2024-01-12)
PROC: 5A1D90Z Performance of Urinary Filtration, Continuous, Greater than 18 hours Per Day (ICD-10-PCS; 2024-01-13)
PROC: 0BJ08ZZ Inspection of Tracheobronchial Tree, Via Natural or Artificial Opening Endoscopic (ICD-10-PCS; 2024-01-14)
PROC: 30233N1 Transfusion of Nonautologous Red Blood Cells into Peripheral Vein, Percutaneous Approach (ICD-10-PCS; 2024-01-14)
PROC: 5A1D90Z Performance of Urinary Filtration, Continuous, Greater than 18 hours Per Day (ICD-10-PCS; 2024-01-14)
PROC: 5A1D90Z Performance of Urinary Filtration, Continuous, Greater than 18 hours Per Day (ICD-10-PCS; 2024-01-16)
PROC: 5A1D90Z Performance of Urinary Filtration, Continuous, Greater than 18 hours Per Day (ICD-10-PCS; 2024-01-17)
PROC: 5A1D90Z Performance of Urinary Filtration, Continuous, Greater than 18 hours Per Day (ICD-10-PCS; 2024-01-18)
PROC: 5A1D90Z Performance of Urinary Filtration, Continuous, Greater than 18 hours Per Day (ICD-10-PCS; 2024-01-19)
PROC: 5A1D90Z Performance of Urinary Filtration, Continuous, Greater than 18 hours Per Day (ICD-10-PCS; 2024-01-20)
PROC: 5A1D90Z Performance of Urinary Filtration, Continuous, Greater than 18 hours Per Day (ICD-10-PCS; 2024-01-23)
PROC: 5A1D90Z Performance of Urinary Filtration, Continuous, Greater than 18 hours Per Day (ICD-10-PCS; 2024-01-24)
DX: B37.7 Candidal sepsis (principal); J69.0 Pneumonitis due to inhalation of food and vomit; R65.21 Severe sepsis with septic shock; J96.01 Acute respiratory failure with hypoxia; J96.02 Acute respiratory failure with hypercapnia; N17.0 Acute kidney failure with tubular necrosis; K72.00 Acute and subacute hepatic failure without coma; C34.11 Malignant neoplasm of upper lobe, right bronchus or lung; A04.72 Enterocolitis due to Clostridium difficile, not specified as recurrent; E87.1 Hypo-osmolality and hyponatremia; N18.4 Chronic kidney disease, stage 4 (severe); J93.82 Other air leak; B37.1 Pulmonary candidiasis; Z66 Do not resuscitate; E83.51 Hypocalcemia; E11.51 Type 2 diabetes mellitus with diabetic peripheral angiopathy without gangrene; E11.22 Type 2 diabetes mellitus with diabetic chronic kidney disease; D64.9 Anemia, unspecified; R74.01 Elevation of levels of liver transaminase levels; I71.9 Aortic aneurysm of unspecified site, without rupture; I25.10 Atherosclerotic heart disease of native coronary artery without angina pectoris; I27.20 Pulmonary hypertension, unspecified; I48.91 Unspecified atrial fibrillation; J44.9 Chronic obstructive pulmonary disease, unspecified; Z51.5 Encounter for palliative care; Z87.891 Personal history of nicotine dependence; Z79.84 Long term (current) use of oral hypoglycemic drugs; Z79.82 Long term (current) use of aspirin; Z79.899 Other long term (current) drug therapy; Z86.73 Personal history of transient ischemic attack (TIA), and cerebral infarction without residual deficits
CPT/HCPCS: 20950; 31622; 31624; 31645; 36415; 36430; 36600; 70450; 71045; 74176; 76770; 80048; 80053; 80069; 80162; 80202; 81001; 81003; 82330; 82803; 82810; 82948; 83036; 83605; 83735; 84100; 84134; 84145; 84478; 84484; 85007; 85008; 85018; 85025; 85610; 85651; 85730; 86140; 86885; 86900; 86901; 86920; 86945; 87040; 87070; 87081; 87102; 87324; 87449; 88305; 88309; 88331; 93005; 93308; 94003; 94640; 94664; 94668; 94760; 94799; 97116; 97161; 97530; A4333; A4618; A4620; A6196; A6209; A6213; A6222; A6250; A6258; A6402; A6449; A6590; A7000; A7015; A7048; A9900; C1751; C1758; C9250; C9290; E1594; G0378; J0131; J0171; J0282; J0461; J0690; J0692; J1100; J1160; J1171; J1250; J1644; J1720; J1815; J1940; J2060; J2185; J2212; J2248; J2250; J2270; J2274; J2370; J2371; J2405; J2470; J2704; J2710; J2765; J3010; J3370; J3475; J3480; J3490; J7030; J7040; J7042; J7050; J7060; J7120; P9016; P9035; P9045; P9047; Q9963